=== PATIENT | male | born 1980 | race American Indian/Alaskan Native ===

== ENCOUNTER 2017-07-19 12:49 | Inpatient (IN) | payer OTHER ==
[2017-07-19] MEDS ORDERED: TYLENOL PO ONE (14:23)
[2017-07-19] MEDS ORDERED: TYLENOL ONE (14:25)
[2017-07-19 15:04] LABS: Hemoglobin 12.9 gm/dl (11.8-15.2); Mean Corpuscular HGB Conc 33 % (32-34); Mean Corpuscular Volume 74 fl (84-94); Platelet Count 158 K/mm3 (140-440); Red Blood Count 5.26 M/mm3 (3.65-5.03); Red Cell Distribution Width 15.7 % (13.2-15.2)
--- NOTE | 2017-07-19 15:05 | XRay Report ---
ROUTINE CHEST, TWO VIEWS: HISTORY: Shortness of breath. The trachea, heart, mediastinal contour, lung cherry and bony thorax are unremarkable. IMPRESSION: Unremarkable chest x-ray.
[2017-07-19 15:06] LABS: Mean Corpuscular Hemoglobin 25 pg (28-32)
[2017-07-19 15:11] LABS: BUN/Creatinine Ratio 19; Blood Urea Nitrogen 19 mg/dL (9-20); Calcium 8.5 mg/dL (8.4-10.2); Hemolysis Index 14
[2017-07-19] MEDS ORDERED: NACL 0.9% 500 ML 500 ML IV ONE (15:26)
[2017-07-19] MEDS ORDERED: NACL 0.9% 1000 ML 1,000 ML ONE (15:42)
[2017-07-19 15:52] LABS: Basophils % (Manual) 0 % (0.0-1.8); Eosinophils % (Manual) 0 % (0.0-4.3); Hypochromasia 1+; Ovalocytes 2+; Schistocytes Few; Total Cells Counted 100
[2017-07-19 15:53] LABS: Anisocytosis 1+; Large Platelets 1+; Platelet Estimate Consistent w Auto
--- NOTE | 2017-07-19 15:59 | Emergency Department Report ---
ED General Adult HPI - General Chief complaint: Dyspnea/Respdistress Stated complaint: SOB Time Seen by Provider: 07/19/17 15:31 Source: patient Mode of arrival: Ambulatory Limitations: No Limitations - History of Present Illness Initial comments: Patient is a poor historian. However, he is able to speak Czech moderately well. He states that he has been sick for 3 weeks. Apparently he has had some occasional cough and some vague difficulty breathing. States that he "coughs at midnight". Doesn't seem to be producing any sputum as far as I can tell from him. He denies leg pain or swelling. His last trip from [facility] was 3 months ago. He states that he was in [place] prior to that. 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 He denies ever having HIV testing. However he has been traveling [facility] quite some time. He states he was never hospitalized in [facility]. He does not take any routine medications. He denies a history of serious infection to include HIV. He was unaware of his fever. He does feel generally weak. -: week(s) Radiation: other (subjective Gen. eyes body aching but no chest or abdominal pain) Severity scale (0 -10): 5 Consistency: intermittent Improves with: none Worsens with: none Associated Symptoms: denies other symptoms, malaise, weakness Treatments Prior to Arrival: none - Related Data Allergies Allergy/AdvReac Type Severity Reaction Status Date / Time No Known Allergies Allergy Verified 07/19/17 14:16 ED Review of Systems ROS: Stated complaint: SOB Other details as noted in HPI Constitutional: weakness. denies: chills, fever (was unaware) Eyes: denies: eye pain, eye discharge, vision change ENT: throat pain (sore throat). denies: ear pain Respiratory: denies: cough, shortness of breath, wheezing Cardiovascular: denies: chest pain, palpitations Endocrine: no symptoms reported Gastrointestinal: denies: abdominal pain, nausea, diarrhea Genitourinary: denies: urgency, dysuria Musculoskeletal: denies: back pain, joint swelling, arthralgia Skin: denies: rash, lesions Neurological: denies: headache, weakness, paresthesias Psychiatric: denies: anxiety, depression Hematological/Lymphatic: denies: easy bleeding, easy bruising ED Past Medical Hx - Past Medical History Hx Hypertension: Yes Hx Diabetes: Yes - Surgical History Past Surgical History?: Yes Additional Surgical History: hernia - Social History Smoking Status: Current Every Day Smoker Substance Use Type: None ED Physical Exam - General Limitations: No Limitations General appearance: alert, in no apparent distress - Head Head exam: Present: atraumatic, normocephalic - Eye Eye exam: Present: normal appearance - ENT ENT exam: Present: mucous membranes dry. Absent: normal orophraynx (patient has apparent thrush posterior pharynx.) - Neck Neck exam: Present: normal inspection. Absent: tenderness, meningismus - Respiratory Respiratory exam: Present: normal lung sounds bilaterally. Absent: respiratory distress - Cardiovascular Cardiovascular Exam: Present: regular rate, normal rhythm. Absent: systolic murmur, diastolic murmur, rubs, gallop - GI/Abdominal GI/Abdominal exam: Present: soft, normal bowel sounds. Absent: distended, tenderness, guarding, rebound, rigid - Rectal Rectal exam: Present: deferred - Extremities Exam Extremities exam: Present: normal inspection - Back Exam Back exam: Present: normal inspection - Neurological Exam Neurological exam: Present: alert, oriented X3 - Psychiatric Psychiatric exam: Present: normal affect, normal mood - Skin Skin exam: Present: warm, dry, intact, normal color. Absent: rash ED Course Vital Signs 07/19/17 07/19/17 07/19/17 14:16 15:25 15:31 Temperature 101.9 F H Pulse Rate 110 H 95 H Respiratory 16 17 20 Rate Blood Pressure 103/60 O2 Sat by Pulse 96 98 Oximetry 07/19/17 07/19/17 15:45 16:00 Temperature Pulse Rate 92 H 89 Respiratory 12 22 Rate Blood Pressure 102/61 121/77 O2 Sat by Pulse 97 96 Oximetry - Reevaluation(s) Reevaluation #1: Patient was found to have a neutrophil count of 1.1 and an absolute lymphocyte count of 400. He has thrush. I was certainly think the likely diagnosis is HIV. Not withstanding, he was treated empirically for sepsis. His chest x-ray did not show evidence of an acute pulmonary process although perhaps he feels worse slightly hazy but read as normal by the radiologist. I spoke with Dr. Geronimo the infectious disease specialist who has already seen the patient. The patient has been admitted by Dr. Walters. 07/19/17 18:01 ED Medical Decision Making - Lab Data Result diagrams: 07/19/17 14:40 07/19/17 14:40 Laboratory Results - last 24 hr 07/19/17 07/19/17 14:40 14:40 WBC 1.7 L* RBC 5.26 H Hgb 12.9 Hct 39.0 MCV 74 L MCH 25 L MCHC 33 RDW 15.7 H Plt Count 158 Sodium 130 L Potassium 4.7 Chloride 90.0 L Carbon Dioxide 23 Anion Gap 22 BUN 19 Creatinine 1.0 Estimated GFR > 60 BUN/Creatinine Ratio 19 Glucose 90 Calcium 8.5 Laboratory Results - last 24 hr 07/19/17 07/19/17 07/19/17 14:40 14:40 15:39 WBC 1.7 L* RBC 5.26 H Hgb 12.9 Hct 39.0 MCV 74 L MCH 25 L MCHC 33 RDW 15.7 H Plt Count 158 Add Manual Diff Complete Total Counted 100 Seg Neuts % (Manual) 65.0 Band Neutrophils % 1.0 Lymphocytes % (Manual) 26.0 Reactive Lymphs % (Man) 0 Monocytes % (Manual) 8.0 H Eosinophils % (Manual) 0 Basophils % (Manual) 0 Metamyelocytes % 0 Myelocytes % 0 Promyelocytes % 0 Blast Cells % 0 Nucleated RBC % Not Reportable Seg Neutrophils # Man 1.1 L Band Neutrophils # 0.0 Lymphocytes # (Manual) 0.4 L Abs React Lymphs (Man) 0.0 Monocytes # (Manual) 0.1 Eosinophils # (Manual) 0.0 Basophils # (Manual) 0.0 Metamyelocytes # 0.0 Myelocytes # 0.0 Promyelocytes # 0.0 Blast Cells # 0.0 WBC Morphology Not Reportable Hypersegmented Neuts Not Reportable Hyposegmented Neuts Not Reportable Hypogranular Neuts Not Reportable Smudge Cells Not Reportable Toxic Granulation Not Reportable Toxic Vacuolation Not Reportable Dohle Bodies Not Reportable Pelger-Huet Anomaly Not Reportable Steffen Rods Not Reportable Platelet Estimate Consistent w auto Clumped Platelets Not Reportable Plt Clumps, EDTA Not Reportable Large Platelets 1+ Giant Platelets Not Reportable Platelet Satelliting Not Reportable Plt Morphology Comment Not Reportable RBC Morphology Not Reportable Dimorphic RBCs Not Reportable Polychromasia Not Reportable Hypochromasia 1+ Poikilocytosis Not Reportable Anisocytosis 1+ Microcytosis Not Reportable Macrocytosis Not Reportable Spherocytes Not Reportable Pappenheimer Bodies Not Reportable Sickle Cells Not Reportable Target Cells Not Reportable Tear Drop Cells Not Reportable Ovalocytes 2+ Helmet Cells Not Reportable [place] Bodies Not Reportable Grawn Rings Not Reportable Ripley Cells Not Reportable Bite Cells Not Reportable Crenated Cell Not Reportable Elliptocytes 1+ Acanthocytes (Spur) Not Reportable Rouleaux Not Reportable Hemoglobin C Crystals Not Reportable Schistocytes Few Malaria parasites Not Reportable Ezekiel Bodies Not Reportable Hem Pathologist Commnt No PT 12.7 INR 0.91 APTT 31.2 Sodium 130 L Potassium 4.7 Chloride 90.0 L Carbon Dioxide 23 Anion Gap 22 BUN 19 Creatinine 1.0 Estimated GFR > 60 BUN/Creatinine Ratio 19 Glucose 90 Lactic Acid Calcium 8.5 Total Bilirubin Direct Bilirubin Indirect Bilirubin AST ALT Alkaline Phosphatase Total Protein Albumin Albumin/Globulin Ratio 07/19/17 07/19/17 15:39 15:43 WBC RBC Hgb Hct MCV MCH MCHC RDW Plt Count Add Manual Diff Total Counted Seg Neuts % (Manual) Band Neutrophils % Lymphocytes % (Manual) Reactive Lymphs % (Man) Monocytes % (Manual) Eosinophils % (Manual) Basophils % (Manual) Metamyelocytes % Myelocytes % Promyelocytes % Blast Cells % Nucleated RBC % Seg Neutrophils # Man Band Neutrophils # Lymphocytes # (Manual) Abs React Lymphs (Man) Monocytes # (Manual) Eosinophils # (Manual) Basophils # (Manual) Metamyelocytes # Myelocytes # Promyelocytes # Blast Cells # WBC Morphology Hypersegmented Neuts Hyposegmented Neuts Hypogranular Neuts Smudge Cells Toxic Granulation Toxic Vacuolation Dohle Bodies Pelger-Huet Anomaly Steffen Rods Platelet Estimate Clumped Platelets Plt Clumps, EDTA Large Platelets Giant Platelets Platelet Satelliting Plt Morphology Comment RBC Morphology Dimorphic RBCs Polychromasia Hypochromasia Poikilocytosis Anisocytosis Microcytosis Macrocytosis Spherocytes Pappenheimer Bodies Sickle Cells Target Cells Tear Drop Cells Ovalocytes Helmet Cells Collins-[place] Bodies Grawn Rings Ripley Cells Bite Cells Crenated Cell Elliptocytes Acanthocytes (Spur) Rouleaux Hemoglobin C Crystals Schistocytes Malaria parasites Ezekiel Bodies Hem Pathologist Commnt PT INR APTT Sodium Potassium Chloride Carbon Dioxide Anion Gap BUN Creatinine Estimated GFR BUN/Creatinine Ratio Glucose Lactic Acid 1.20 Calcium Total Bilirubin 0.70 Direct Bilirubin 0.2 Indirect Bilirubin 0.5 AST 73 H ALT 20 Alkaline Phosphatase 68 Total Protein 8.6 H Albumin 4.1 Albumin/Globulin Ratio 0.9 - EKG Data -: EKG Interpreted by Me EKG shows normal: sinus rhythm, axis, intervals, QRS complexes, ST-T waves Rate: normal - EKG Data Interpretation: no acute changes - Radiology Data Radiology results: report reviewed Critical care attestation.: If time is entered above; I have spent that time in minutes in the direct care of this critically ill patient, excluding procedure time. ED Disposition Clinical Impression: Febrile illness, Lymphopenia, Hyponatremia, Thrush Neutropenia Qualifiers: Neutropenia type: due to infection Qualified Code(s): D70.3 - Neutropenia due to infection Disposition: DC-09 OP ADMIT IP TO THIS HOSP Is pt being admited?: Yes Does the pt Need Aspirin: Yes Condition: Stable Time of Disposition: 18:04
[2017-07-19] MEDS ORDERED: VANCOMYCIN PHARMACY TO DOSE IV SCH ×2 (16:00→19:00)
[2017-07-19 16:04] LABS: INR 0.91 (0.87-1.13)
[2017-07-19 16:05] LABS: Partial Thromboplastin Time 31.2 Sec. (24.2-36.6)
[2017-07-19 16:14] LABS: Albumin 4.1 g/dL (3.9-5); Bilirubin,Direct 0.2 mg/dL (0-0.2)
[2017-07-19] MEDS: ZOSYN/NS 4.5GM/100ML 4.5 GM/100 ML VIAL IV SCH (17:05)
[2017-07-19] MEDS ORDERED: ZOFRAN IV PRN (17:29)
[2017-07-19] MEDS ORDERED: DULCOLAX PR PRN (17:29)
[2017-07-19] MEDS ORDERED: MILK OF MAGNESIA PO PRN (17:29)
--- NOTE | 2017-07-19 17:29 | Event Note ---
Date: 07/19/17 See Dictated H/p in reports Esophageal candidiasis Immunocompromised--HIV??? HIV test ordered Htn T2Dm
[2017-07-19] MEDS ORDERED: DILAUDID IV PRN (17:35)
[2017-07-19] MEDS ORDERED: MORPHINE IV PRN (17:35)
[2017-07-19] MEDS ORDERED: NACL 0.9% 1000 ML 1,000 ML IV SCH (18:00)
[2017-07-19] MEDS: DIFLUCAN 200 ML IV SCH (18:03)
[2017-07-19] MEDS ORDERED: BABY ASPIRIN PO ONE (18:08)
--- NOTE | 2017-07-19 18:31 | History and Physical Report ---
CHIEF COMPLAINT: 1. Shortness of breath. 2. Difficulty swallowing for 2 weeks. HISTORY OF PRESENT ILLNESS: A 37-year-old male states that he has been sick for 3 weeks. Shortness of breath and occasional cough. Also, has difficulty swallowing. Has white rash on the tongue. He travels between [facility] and [facility]. Very poor historian. States he has been getting short of breath and feeling weak. No fever. No chills. No prior history of HIV, etc. The patient is a very, very poor historian. PAST MEDICAL HISTORY: Hypertension and diabetes. PAST SURGICAL HISTORY: Hernia repair. SOCIAL HISTORY: Smokes over a pack a day. No alcohol, no drugs. FAMILY HISTORY: Hypertension. CURRENT MEDICATIONS: None mentioned. REVIEW OF SYSTEMS: HEENT: The patient has sore throat and difficulty swallowing and thrush. Oral thrush present. It has been going on for 3 weeks. NECK: No neck pain. CARDIOVASCULAR: No chest pain, no palpitations. Some shortness of breath present. RESPIRATORY: Some cough and shortness of breath on exertion present. No wheezing. GASTROINTESTINAL: No nausea, no vomiting. Has difficulty swallowing. Painful swallowing. No diarrhea. GENITOURINARY: No dysuria, no flank pain. MUSCULOSKELETAL: No joint pains. CENTRAL NERVOUS SYSTEM: No syncope, no seizures. A 14-point review of systems done. PHYSICAL EXAMINATION: GENERAL: Young male, cooperative during examination, well-developed, well nourished. VITAL SIGNS: Blood pressure is 102/61, temperature is 101.9, pulse is 110, respirations are 16, sats are 96%. HEENT: Oral thrush present. Tongue red otherwise. NECK: Supple, no lymphadenopathy, no thyromegaly. LUNGS: Clear to auscultation and percussion. Good air entry. CARDIOVASCULAR: S1, S2 heard. No gallop, no murmur, no rub. Apical impulse in left fifth intercostal space and midclavicular line. ABDOMEN: Soft and benign. No hepatosplenomegaly. No guarding, no rigidity. Hernial orifices are normal. EXTREMITIES: Good pedal pulses. No pedal edema. CENTRAL NERVOUS SYSTEM: Alert and oriented x 4, nonfocal exam. SKIN: Normal. LABORATORY DATA: Significant for white count of 1700. Very low hemoglobin of 12.9, hematocrit of 39 and platelet count of 158. Sodium is 130, potassium is 4.7, chloride is 90, BUN and creatinine is 19 and 1.0, AST is 73. Total protein is 8.6, albumin is 4.1. ASSESSMENT AND PLAN: 1. Esophageal candidiasis including oral thrush. The patient needs to be on IV Diflucan, dosages to be adjusted by ID. ID consult requested. Possible human immunodeficiency virus with acquired immune deficiency syndrome complex. Rapid HIV ordered. The CD4, etc. not ordered. We will defer to Infectious Disease. 2. Neutropenia, probably secondary to human immunodeficiency virus, rapid HIV ordered. The patient is a poor historian, does not give a sexual orientation. 3. Transaminitis, mild. We will get acute hepatitis profile. 4. Hyponatremia. IV fluids for now. Check osmolality. 5. Deep venous thrombosis prophylaxis, Lovenox 30 mg subcutaneous daily ordered. In summary, the patient has esophageal candidiasis, neutropenia, hyponatremia and transaminitis. Possible human immunodeficiency virus with acquired immune deficiency syndrome complex. JOB# [id number] TERRY/MCKENZIE
--- NOTE | 2017-07-19 18:46 | Consultation ---
History of Present Illness - Reason for Consult Consult date: 07/19/17 thrust, fever Requesting physician: TYRESE PEPE - History of Present Illness 37 years old patient originally from [place] with no known medical history except for smoking abuse admitted on 07/19/2018 due to 2 week-history of generalized weakness, denied cough, weight loss about 10 pounds and progressive shortness of breath. Patient denies any previous HIV testing. Patient is also complaining of suprapubic abdominal pain and dysuria. Patient is complaining of sore throat. Denies any runny nose. Reports nausea however denies vomiting or hematemesis. Denies hemoptysis. Patient came from the year 3 months ago. In the emergency room, initial temperature was 101.9, heart rate 110, respirations 16, O2 sat 96%, blood pressure 103/60. Initial white count 1.7. Hemoglobin 12.9. Platelets 158. Creatinine 1. Sodium 138. AST 73. Chest x- ray negative. Microbiology: Blood cultures: 07/19 pending Urine cultures: Respiratory cultures: Wound cultures: Stool cultures: Other: Current Antimicrobials: Zosyn Vancomycin Previous Antimicrobials: Past History Past Surgical History: No surgical history Social history: no significant social history Family history: no significant family history Medications and Allergies Allergies Allergy/AdvReac Type Severity Reaction Status Date / Time No Known Allergies Allergy Verified 07/19/17 14:16 Active Meds: Active Medications Acetaminophen (Tylenol) 650 mg PO Q4H PRN PRN Reason: Pain MILD(1-3)/Fever >100.5/OSMAN Bisacodyl (Dulcolax) 10 mg NC QDAY PRN PRN Reason: Constipation unrelieved by MOM Enoxaparin Sodium (Lovenox) 30 mg SUB-Q QDAY LAW Hydromorphone HCl (Dilaudid) 0.5 mg IV Q3H PRN PRN Reason: Pain , Severe (7-10) Piperacillin Sod/Tazobactam Sod (Zosyn/Ns 4.5gm/100ml) 4.5 gm in 100 mls @ 200 mls/hr IV ONCE [facility] Last Admin: 07/19/17 17:05 Dose: 200 mls/hr Fluconazole (Diflucan) 200 mls @ 100 mls/hr IV Q24HR LAW PRN Reason: Protocol Last Admin: 07/19/17 18:03 Dose: 100 mls/hr Sodium Chloride (Nacl 0.9% 1000 Ml) 1,000 mls @ 75 mls/hr IV DIRECT LAW Stop: 07/20/17 17:00 Piperacillin Sod/Tazobactam Sod (Zosyn/Ns 4.5gm/100ml) 4.5 gm in 100 mls @ 200 mls/hr IV Q8H LAW PRN Reason: Protocol Vancomycin HCl 1,250 mg/ (Sodium Chloride) 262.5 mls @ 131.25 mls/hr IV Q12H LAW Magnesium Hydroxide (Milk Of Magnesia) 30 ml PO Q4H PRN PRN Reason: Constipation Morphine Sulfate (Morphine) 2 mg IV Q4H PRN PRN Reason: Pain, Moderate (4-6) Ondansetron HCl (Zofran) 4 mg IV Q8H PRN PRN Reason: N/V unrelieved by Reglan Oxycodone/Acetaminophen (Percocet 5/325) 1 tab PO Q6H PRN PRN Reason: Pain, Moderate (4-6) Vancomycin HCl (Vancomycin Pharmacy To Dose) 1 each IV PKCONSULT LAW PRN Reason: Protocol Physical Examination - Physical Exam Narrative exam: General appearance: Alert in NAD, conversant Eyes: anicteric sclerae, moist conjunctivae; no lid-lag; PERRLA HENT: Atraumatic; oropharynx +marked thrush Neck: Trachea midline; supple, no thyromegaly or lymphadenopathy Lungs: scattered crackles demarcus CV: tachy Abdomen: Soft, non-tender; no masses or hepatosplenomegaly Extremities: No peripheral edema or extremity lymphadenopathy Skin: Normal temperature, turgor and texture; no rash, ulcers or subcutaneous nodules Psych: Appropriate affect, alert and oriented to person, place and time. Neuro: alert and oriented x 3. Moving all extermities Lines: No CVL / PICC - Constitutional Vitals: Vital Signs Temp Pulse Resp BP Pulse Ox 101.9 F H 94 H 15 91/66 96 07/19/17 14:16 07/19/17 18:00 07/19/17 18:00 07/19/17 18:00 07/19/17 18:00 Temperature -Last 24 Hours Temperature 101.9 F Results - Labs CBC & Chem 7: 07/19/17 14:40 07/19/17 14:40 Labs: Abnormal lab results 07/19/17 07/19/17 07/19/17 Range/Units 14:40 14:40 15:43 WBC 1.7 L* (4.5-11.0) K/mm3 RBC 5.26 H (3.65-5.03) M/mm3 MCV 74 L (84-94) fl MCH 25 L (28-32) pg RDW 15.7 H (13.2-15.2) % Monocytes % (Manual) 8.0 H (0.0-7.3) % Seg Neutrophils # Man 1.1 L (1.8-7.7) K/mm3 Lymphocytes # (Manual) 0.4 L (1.2-5.4) K/mm3 Sodium 130 L (137-145) mmol/L Chloride 90.0 L (98-107) mmol/L AST 73 H (5-40) units/L Total Protein 8.6 H (6.3-8.2) g/dL Assessment and Plan Assessment: 1) Sepsis: Present on admission, manifested by fever, tachycardia, hypotension, neutropenia. Etiology unclear. 2) Cough: CXR neg ? influenza ? PJP 3) Oral candidiasis 4) Weight loss ? HIV ? malignancy 5) Presumed HIV 6) Neutropenia: from HIV ? MAC ? malignancy ?infection? 7) Hyponatremia Plan: -follow-up blood cultures -obtain C-reactive protein (CRP) -check influenza antigen PCR in nasopharinx -check Cryptococcal serum antigen -check AFB blood cultures -obtain CT chest, abdomen and pelvic -stop vancomycin -continue zosyn and fluconazole -add tamiflu -add bactrim DS 2 tab q 8h empirically for PJP pneumonia full treatment -monitor for hypoxemia if so add prednisone Thank you Dr Pepe for your consultation, will follow up with you. Mishel Fry MD Infectious Diseases Specialist [facility] M [phone] O [phone]
[2017-07-19] MEDS ORDERED: VANCOMYCIN 1,250 MG in NACL 0.9% 250ML 250 ML IV SCH (19:30)
[2017-07-19] MEDS: BACTRIM DS PO SCH (22:13)
[2017-07-19] MEDS: TAMIFLU PO SCH (22:13)
[2017-07-19 22:14] LABS: Hepatitis A Antibody IgM Non-Reactive (NonReactive); Hepatitis B Core IgM Non-Reactive (NonReactive); Hepatitis B Surface Antigen Non-Reactive (Negative); Hepatitis C Virus Antibody Non-Reactive (NonReactive)
--- NOTE | 2017-07-20 00:32 | Cat Scan Report ---
FINAL REPORT PROCEDURE: CT ABDOMEN PELVIS WO/W CON TECHNIQUE: Computerized axial tomography of the abdomen and pelvis was performed without and with intravenous contrast. HISTORY: severe weight loss ? presumed AIDS with cough COMPARISON: No prior studies are available for comparison. FINDINGS: Visualized lower thorax: There are infiltrates at the right lung base. There are no pleural effusions or pneumothoraces.. Liver: Normal size and attenuation. Spleen: Normal size and attenuation. Gallbladder and biliary system: Normal. Pancreas: Normal. Adrenals: Normal. Kidneys: There are no kidney stones. There is no hydronephrosis per. GI tract: There is no bowel obstruction, colitis or enteritis. The appendix is normal.. Lymph nodes and mesentery: Normal. Vasculature: Normal. Bladder: Normal. Reproductive organs: Normal. Peritoneum: There is no ascites or free air, abscess or adenopathy.. Musculoskeletal structures: No significant abnormality. Other: There is a ventral hernia containing fat only.. IMPRESSION: There are infiltrates at the right lung base. There are no pleural effusions or pneumothoraces.. There are no kidney stones. There is no hydronephrosis per. There is no bowel obstruction, colitis or enteritis. The appendix is normal.. There is no ascites or free air, abscess or adenopathy.. There is a ventral hernia containing fat only.. .
[2017-07-20] MEDS: ZOSYN/NS 4.5GM/100ML 4.5 GM/100 ML VIAL IV SCH ×4 (00:42→08:59)
--- NOTE | 2017-07-20 01:16 | Cat Scan Report ---
FINAL REPORT PROCEDURE: CT CHEST W CON TECHNIQUE: Computerized axial tomography of the chest was performed during the IV injection of iodinated nonionic contrast. HISTORY: severe weight loss ? presumed AIDS with cough COMPARISON: No prior studies are available for comparison. TECHNICAL QUALITY: Satisfactory. FINDINGS: Heart and pericardium: Normal. Thoracic aorta: Normal. Pulmonary vasculature: Normal. Lymph nodes: No enlarged thoracic lymph nodes. Lungs: The lungs are well-expanded. 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 There are infiltrates at the right lung base. There is no pulmonary nodule or mass.. Pleural space: There is no pleural effusion or pneumothorax.. Musculoskeletal structures: No significant abnormality. Upper abdominal structures: No significant abnormality. IMPRESSION: The heart size is normal. There is no mediastinal or hilar lymphadenopathy. The lungs are well-expanded. 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 There are infiltrates at the right lung base. There is no pulmonary nodule or mass.. There is no pleural effusion or pneumothorax..
[2017-07-20] MEDS: BACTRIM DS PO SCH ×3 (05:59→21:37)
[2017-07-20 06:30] LABS: Hematocrit 35.6 % (35.5-45.6); Hemoglobin 11.9 gm/dl (11.8-15.2); Mean Corpuscular HGB Conc 33 % (32-34); Mean Corpuscular Volume 74 fl (84-94); Platelet Count 159 K/mm3 (140-440); Red Blood Count 4.82 M/mm3 (3.65-5.03); Red Cell Distribution Width 15.6 % (13.2-15.2)
[2017-07-20 06:44] LABS: Alanine Aminotransferase 16 units/L (7-56); Albumin 2.8 g/dL (3.9-5); BUN/Creatinine Ratio 17; Blood Urea Nitrogen 12 mg/dL (9-20); Calcium 7.9 mg/dL (8.4-10.2); Hemolysis Index 0
[2017-07-20 06:47] LABS: Mean Corpuscular Hemoglobin 25 pg (28-32)
[2017-07-20 06:50] LABS: Bilirubin,Urine NEG (Negative); Blood,Urine NEG (Negative); Color,Urine Yellow (Yellow); Nitrite,Urine NEG (Negative); Protein,Urine <15 mg/dL mg/dL (Negative); WBC,Urine < 1.0 /HPF (0.0-6.0)
[2017-07-20] MEDS ORDERED: LOVENOX SUB-Q SCH (10:00)
[2017-07-20 10:14] LABS: Anisocytosis 1+; Band Neutrophils # (Manual) 0.1 K/mm3; Basophils % (Manual) 0 % (0.0-1.8); Eosinophils % (Manual) 0 % (0.0-4.3); Hypochromasia 1+; Ovalocytes 2+; Total Cells Counted 100
[2017-07-20] MEDS: DIFLUCAN 200 ML IV SCH (10:38)
--- NOTE | 2017-07-20 10:38 | Progress Note ---
Assessment and Plan Assessment: 1) Sepsis: resolving. still hypotension, neutropenia. Etiology likely pneumonia. 2) RLL pneumonia in an immunocompromised patient: ? influenza ? PJP ? CAP -influenza antigen negative -CRP = 2.10 -HIV 1 & 2 reactive -CT showed RLL infiltrate -inital CXR neg 3) Oral candidiasis 4) Weight loss ? HIV ? malignancy 5) Newly diagtnosed HIV-presumed AIDS 6) Neutropenia: from HIV ? MAC ? malignancy ?infection? 7) Hyponatremia Plan: -hemo consult due to neutropenia to obtain bone marrow biopsy to r/o malignancy vs opportunist infection -follow-up blood cultures, Cryptococcal serum antige, AFB blood cultures -continue tamiflu and bactrim -add ceftriaxone and levaquin -change fluconazole to PO -stop zosyn -follow up with HIV clinic Thank you Dr Le for your consultation, will follow up with you. Katlyn Arzate NP-C for Dr. Mishel Fry MD Infectious Diseases Specialist [facility] [phone] O [phone] Subjective Date of service: 07/20/17 Principal diagnosis: leukopenia, fever, thrush Interval history: I can breath a little better today Microbiology: Blood cultures: 07/19 in progress Respiratory cultures: influenza negative 07/19 Current Antimicrobials: Zosyn 07/20 Diflucan 07/19 tanufky 07/19 bactrim 07/19 Previous Antimicrobials: Vancomycin Objective - Exam Narrative Exam: General appearance: Alert in NAD, conversant Eyes: anicteric sclerae, moist conjunctivae; no lid-lag; PERRLA HENT: Atraumatic; oropharynx +marked thrush Neck: Trachea midline; supple, no thyromegaly or lymphadenopathy Lungs: scattered crackles demarcus CV: RRR s1 s2 Abdomen: Soft, non-tender; no masses or hepatosplenomegaly Extremities: No peripheral edema or extremity lymphadenopathy Skin: Normal temperature, turgor and texture; no rash, ulcers or subcutaneous nodules Psych: Appropriate affect, calm and cooperative Neuro: alert and oriented x 3. Moving all extermities Lines: No CVL / PICC - Constitutional Vitals: Vital Signs Temp Pulse Resp BP Pulse Ox 99.5 F 89 18 115/78 98 07/20/17 08:03 07/20/17 08:03 07/20/17 08:03 07/20/17 08:03 07/20/17 08:03 Temperature -Last 24 Hours Temperature 99.5 F Temperature 98.0 F Temperature 101.9 F - Labs CBC & Chem 7: 07/20/17 05:22 07/20/17 05:22 Labs: Abnormal lab results 07/19/17 07/19/17 07/19/17 Range/Units 14:40 14:40 15:43 WBC 1.7 L* (4.5-11.0) K/mm3 RBC 5.26 H (3.65-5.03) M/mm3 MCV 74 L (84-94) fl MCH 25 L (28-32) pg RDW 15.7 H (13.2-15.2) % Seg Neuts % (Manual) (40.0-70.0) % Lymphocytes % (Manual) (13.4-35.0) % Monocytes % (Manual) 8.0 H (0.0-7.3) % Seg Neutrophils # Man 1.1 L (1.8-7.7) K/mm3 Lymphocytes # (Manual) 0.4 L (1.2-5.4) K/mm3 Sodium 130 L (137-145) mmol/L Chloride 90.0 L (98-107) mmol/L Carbon Dioxide (22-30) mmol/L Creatinine (0.8-1.5) mg/dL Glucose (75-100) mg/dL Lactic Acid (0.7-2.0) mmol/L Calcium (8.4-10.2) mg/dL AST 73 H (5-40) units/L C-Reactive Protein (0.00-1.30) mg/dL Total Protein 8.6 H (6.3-8.2) g/dL Albumin (3.9-5) g/dL 07/19/17 07/19/17 07/20/17 Range/Units 21:20 21:20 05:22 WBC 1.6 L* (4.5-11.0) K/mm3 RBC (3.65-5.03) M/mm3 MCV 74 L (84-94) fl MCH 25 L (28-32) pg RDW 15.6 H (13.2-15.2) % Seg Neuts % (Manual) 82.0 H (40.0-70.0) % Lymphocytes % (Manual) 8.0 L (13.4-35.0) % Monocytes % (Manual) (0.0-7.3) % Seg Neutrophils # Man 1.3 L (1.8-7.7) K/mm3 Lymphocytes # (Manual) 0.1 L (1.2-5.4) K/mm3 Sodium (137-145) mmol/L Chloride (98-107) mmol/L Carbon Dioxide (22-30) mmol/L Creatinine (0.8-1.5) mg/dL Glucose (75-100) mg/dL Lactic Acid 0.50 L (0.7-2.0) mmol/L Calcium (8.4-10.2) mg/dL AST (5-40) units/L C-Reactive Protein 2.10 H (0.00-1.30) mg/dL Total Protein (6.3-8.2) g/dL Albumin (3.9-5) g/dL 07/20/17 Range/Units 05:22 WBC (4.5-11.0) K/mm3 RBC (3.65-5.03) M/mm3 MCV (84-94) fl MCH (28-32) pg RDW (13.2-15.2) % Seg Neuts % (Manual) (40.0-70.0) % Lymphocytes % (Manual) (13.4-35.0) % Monocytes % (Manual) (0.0-7.3) % Seg Neutrophils # Man (1.8-7.7) K/mm3 Lymphocytes # (Manual) (1.2-5.4) K/mm3 Sodium 133 L (137-145) mmol/L Chloride 97.4 L (98-107) mmol/L Carbon Dioxide 21 L (22-30) mmol/L Creatinine 0.7 L (0.8-1.5) mg/dL Glucose 110 H (75-100) mg/dL Lactic Acid (0.7-2.0) mmol/L Calcium 7.9 L (8.4-10.2) mg/dL AST 44 H (5-40) units/L C-Reactive Protein (0.00-1.30) mg/dL Total Protein (6.3-8.2) g/dL Albumin 2.8 L (3.9-5) g/dL
[2017-07-20] MEDS: TAMIFLU PO SCH ×2 (10:39→21:37)
[2017-07-20] MEDS: LOVENOX SUB-Q SCH (10:40)
[2017-07-20] MEDS ORDERED: PNEUMOVAX 23 IM ONE (12:00)
[2017-07-20] MEDS: PROTONIX PO SCH (14:13)
[2017-07-20] MEDS: LEVAQUIN 750MG/150ML 750 MG/150 ML BAG IV SCH (15:50)
[2017-07-20] MEDS: TYLENOL PO PRN (16:01)
--- NOTE | 2017-07-20 18:44 | Progress Note ---
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 Follow up fevers. No new issues. Hospitalist Physical - Constitutional Vitals: Temp Pulse Resp BP Pulse Ox 102.4 F H 65 22 116/83 97 07/20/17 14:58 07/20/17 14:58 07/20/17 14:58 07/20/17 14:58 07/20/17 14:58 General appearance: Present: no acute distress, cachectic - EENT Eyes: Present: PERRL, EOM intact ENT: hearing intact, clear oral mucosa - Neck Neck: Present: supple, normal ROM - Respiratory Respiratory effort: normal Respiratory: right: rhonchi - Cardiovascular Rhythm: regular Heart Sounds: Present: S1 & S2 - Extremities Extremities: no ischemia - Abdominal General gastrointestinal: soft, non-tender, non-distended, normal bowel sounds - Integumentary Integumentary: Present: clear, warm, dry - Psychiatric Psychiatric: cooperative - Neurologic Neurologic: CNII-XII intact - Allied Health Allied health notes reviewed: nursing Results - Labs CBC & Chem 7: 07/20/17 05:22 07/20/17 05:22 Labs: Laboratory Last Values WBC 1.6 K/mm3 (4.5-11.0) L* 07/20/17 05:22 RBC 4.82 M/mm3 (3.65-5.03) 07/20/17 05:22 Hgb 11.9 gm/dl (11.8-15.2) 07/20/17 05:22 Hct 35.6 % (35.5-45.6) 07/20/17 05:22 MCV 74 fl (84-94) L 07/20/17 05:22 MCH 25 pg (28-32) L 07/20/17 05:22 MCHC 33 % (32-34) 07/20/17 05:22 RDW 15.6 % (13.2-15.2) H 07/20/17 05:22 Plt Count 159 K/mm3 (140-440) 07/20/17 05:22 Add Manual Diff Complete 07/20/17 05:22 Total Counted 100 07/20/17 05:22 Seg Neuts % (Manual) 82.0 % (40.0-70.0) H 07/20/17 05:22 Band Neutrophils % 7.0 % 07/20/17 05:22 Lymphocytes % (Manual) 8.0 % (13.4-35.0) L 07/20/17 05:22 Reactive Lymphs % (Man) 0 % 07/20/17 05:22 Monocytes % (Manual) 3.0 % (0.0-7.3) 07/20/17 05:22 Eosinophils % (Manual) 0 % (0.0-4.3) 07/20/17 05:22 Basophils % (Manual) 0 % (0.0-1.8) 07/20/17 05:22 Metamyelocytes % 0 % 07/20/17 05:22 Myelocytes % 0 % 07/20/17 05:22 Promyelocytes % 0 % 07/20/17 05:22 Blast Cells % 0 % 07/20/17 05:22 Nucleated RBC % Not Reportable 07/20/17 05:22 Seg Neutrophils # Man 1.3 K/mm3 (1.8-7.7) L 07/20/17 05:22 Band Neutrophils # 0.1 K/mm3 07/20/17 05:22 Lymphocytes # (Manual) 0.1 K/mm3 (1.2-5.4) L 07/20/17 05:22 Abs React Lymphs (Man) 0.0 K/mm3 07/20/17 05:22 Monocytes # (Manual) 0.0 K/mm3 (0.0-0.8) 07/20/17 05:22 Eosinophils # (Manual) 0.0 K/mm3 (0.0-0.4) 07/20/17 05:22 Basophils # (Manual) 0.0 K/mm3 (0.0-0.1) 07/20/17 05:22 Metamyelocytes # 0.0 K/mm3 07/20/17 05:22 Myelocytes # 0.0 K/mm3 07/20/17 05:22 Promyelocytes # 0.0 K/mm3 07/20/17 05:22 Blast Cells # 0.0 K/mm3 07/20/17 05:22 WBC Morphology Not Reportable 07/20/17 05:22 Hypersegmented Neuts Not Reportable 07/20/17 05:22 Hyposegmented Neuts Not Reportable 07/20/17 05:22 Hypogranular Neuts Not Reportable 07/20/17 05:22 Smudge Cells Not Reportable 07/20/17 05:22 Toxic Granulation Not Reportable 07/20/17 05:22 Toxic Vacuolation Not Reportable 07/20/17 05:22 Dohle Bodies Not Reportable 07/20/17 05:22 Pelger-Huet Anomaly Not Reportable 07/20/17 05:22 Steffen Rods Not Reportable 07/20/17 05:22 Platelet Estimate Not Reportable 07/20/17 05:22 Clumped Platelets Not Reportable 07/20/17 05:22 Plt Clumps, EDTA Not Reportable 07/20/17 05:22 Large Platelets Not Reportable 07/20/17 05:22 Giant Platelets Not Reportable 07/20/17 05:22 Platelet Satelliting Not Reportable 07/20/17 05:22 Plt Morphology Comment Not Reportable 07/20/17 05:22 RBC Morphology Not Reportable 07/20/17 05:22 Dimorphic RBCs Not Reportable 07/20/17 05:22 Polychromasia Not Reportable 07/20/17 05:22 Hypochromasia 1+ 07/20/17 05:22 Poikilocytosis Not Reportable 07/20/17 05:22 Anisocytosis 1+ 07/20/17 05:22 Microcytosis Not Reportable 07/20/17 05:22 Macrocytosis Not Reportable 07/20/17 05:22 Spherocytes Not Reportable 07/20/17 05:22 Pappenheimer Bodies Not Reportable 07/20/17 05:22 Sickle Cells Not Reportable 07/20/17 05:22 Target Cells Not Reportable 07/20/17 05:22 Tear Drop Cells Not Reportable 07/20/17 05:22 Ovalocytes 2+ 07/20/17 05:22 Helmet Cells Not Reportable 07/20/17 05:22 [place] [employer] Bodies Not Reportable 07/20/17 05:22 [place] Rings Not Reportable 07/20/17 05:22 [place] Cells Not Reportable 07/20/17 05:22 Bite Cells Not Reportable 07/20/17 05:22 Crenated Cell Not Reportable 07/20/17 05:22 Elliptocytes Not Reportable 07/20/17 05:22 Acanthocytes (Spur) Not Reportable 07/20/17 05:22 Rouleaux Not Reportable 07/20/17 05:22 Hemoglobin C Crystals Not Reportable 07/20/17 05:22 Schistocytes Not Reportable 07/20/17 05:22 Malaria parasites Not Reportable 07/20/17 05:22 E[place] Bodies Not Reportable 07/20/17 05:22 Hem Pathologist Commnt No 07/20/17 05:22 PT 12.7 Sec. (12.2-14.9) 07/19/17 15:39 INR 0.91 (0.87-1.13) 07/19/17 15:39 APTT 31.2 Sec. (24.2-36.6) 07/19/17 15:39 Sodium 133 mmol/L (137-145) L 07/20/17 05:22 Potassium 4.2 mmol/L (3.6-5.0) 07/20/17 05:22 Chloride 97.4 mmol/L (98-107) L 07/20/17 05:22 Carbon Dioxide 21 mmol/L (22-30) L 07/20/17 05:22 Anion Gap 19 mmol/L 07/20/17 05:22 BUN 12 mg/dL (9-20) 07/20/17 05:22 Creatinine 0.7 mg/dL (0.8-1.5) L 07/20/17 05:22 Estimated GFR > 60 ml/min 07/20/17 05:22 BUN/Creatinine Ratio 17 % 07/20/17 05:22 Glucose 110 mg/dL (75-100) H 07/20/17 05:22 Hemoglobin A1c 6.0 % (4-6) 07/20/17 05:22 Lactic Acid 0.50 mmol/L (0.7-2.0) L 07/19/17 21:20 Calcium 7.9 mg/dL (8.4-10.2) L 07/20/17 05:22 Total Bilirubin 0.40 mg/dL (0.1-1.2) 07/20/17 05:22 Direct Bilirubin 0.2 mg/dL (0-0.2) 07/19/17 15:43 Indirect Bilirubin 0.5 mg/dL 07/19/17 15:43 AST 44 units/L (5-40) H 07/20/17 05:22 ALT 16 units/L (7-56) 07/20/17 05:22 Alkaline Phosphatase 51 units/L (35-129) 07/20/17 05:22 C-Reactive Protein 2.10 mg/dL (0.00-1.30) H 07/19/17 21:20 Total Protein 7.0 g/dL (6.3-8.2) 07/20/17 05:22 Albumin 2.8 g/dL (3.9-5) L 07/20/17 05:22 Albumin/Globulin Ratio 0.7 % 07/20/17 05:22 Urine Color Yellow (Yellow) 07/20/17 04:00 Urine Turbidity Clear (Clear) 07/20/17 04:00 Urine pH 6.0 (5.0-7.0) 07/20/17 04:00 Ur Specific [place] 1.030 (1.003-1.030) 07/20/17 04:00 Urine Protein <15 mg/dl mg/dL (Negative) 07/20/17 04:00 Urine Glucose (UA) Neg mg/dL (Negative) 07/20/17 04:00 Urine Ketones Neg mg/dL (Negative) 07/20/17 04:00 Urine Blood Neg (Negative) 07/20/17 04:00 Urine Nitrite Neg (Negative) 07/20/17 04:00 Urine Bilirubin Neg (Negative) 07/20/17 04:00 Urine Urobilinogen 2.0 mg/dL (<2.0) 07/20/17 04:00 Ur Leukocyte Esterase Neg (Negative) 07/20/17 04:00 Urine WBC (Auto) < 1.0 /HPF (0.0-6.0) 07/20/17 04:00 Urine RBC (Auto) 1.0 /HPF (0.0-6.0) 07/20/17 04:00 Hepatitis A IgM Ab Non-reactive (NonReactive) 07/19/17 21:20 Hep Bs Antigen Non-reactive (Negative) 07/19/17 21:20 Hep B Core IgM Ab Non-reactive (NonReactive) 07/19/17 21:20 Hepatitis C Antibody Non-reactive (NonReactive) 07/19/17 21:20 HIV 1&2 Antibody Rapid Reactive (Non React) 07/19/17 21:20 HIV P24 Antigen Non react (Non React) 07/19/17 21:20
[2017-07-21] MEDS: BACTRIM DS PO SCH ×2 (06:12→15:57)
[2017-07-21 06:36] LABS: Hematocrit 35.9 % (35.5-45.6); Hemoglobin 11.9 gm/dl (11.8-15.2); Mean Corpuscular HGB Conc 33 % (32-34); Mean Corpuscular Volume 74 fl (84-94); Platelet Count 158 K/mm3 (140-440); Red Blood Count 4.85 M/mm3 (3.65-5.03); Red Cell Distribution Width 15.8 % (13.2-15.2)
[2017-07-21 06:52] LABS: BUN/Creatinine Ratio 8; Blood Urea Nitrogen 6 mg/dL (9-20); Calcium 8.1 mg/dL (8.4-10.2); Hemolysis Index 4
[2017-07-21 07:02] LABS: Mean Corpuscular Hemoglobin 25 pg (28-32)
[2017-07-21] MEDS ORDERED: ROCEPHIN/NS 2 GM/100 ML 2 GM/100 ML BAG IV SCH (10:00)
[2017-07-21] MEDS: LEVAQUIN 750MG/150ML 750 MG/150 ML BAG IV SCH (10:21)
[2017-07-21] MEDS: TAMIFLU PO SCH ×2 (10:42→22:30)
[2017-07-21] MEDS: DIFLUCAN PO SCH (10:42)
[2017-07-21] MEDS: PROTONIX PO SCH (10:42)
[2017-07-21] MEDS: LOVENOX SUB-Q SCH (10:43)
[2017-07-21] MEDS: cefTRIAXone 2 GM in NACL 0.9% 20 ML IV SCH (11:06)
--- NOTE | 2017-07-21 13:41 | Progress Note ---
Assessment and Plan Assessment and plan: Patient is a 37-year-old man originally from [place] with a history of tobacco dependency who presented with fevers, sore throat, weight loss, abdominal pain and shortness of breath * 2v CXR reported as no acute findings * CT abd/pelvis w and w/o: IMPRESSION: There are infiltrates at the right lung base. There are no pleural effusions or pneumothoraces. There are no kidney stones. There is no hydronephrosis per. There is no bowel obstruction, colitis or enteritis. The appendix is normal.. There is no ascites or free air, abscess or adenopathy.. There is a ventral hernia containing fat only. * CT chest with contrast: IMPRESSION: The heart size is normal. There is no mediastinal or hilar lymphadenopathy. The lungs are well-expanded. 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 There are infiltrates at the right lung base. There is no pulmonary nodule or mass.. There is no pleural effusion or pneumothorax.. SEPSIS PNA: Infectious Disease is following, ivf and abx, follow cultures HIV with presumably AIDS, newly diagnosed: get viral load, ID is following Oral thrush candidiasis: Treat with Diflucan Neutropenia was likely related to infection: Treated infection RLL Aspiration pneumonia: iv abx Tobacco dependancy: auto travel counselor on stopping Hyponatremia: Treated with IV fluids Severe malnutrition: consult Clerk Of Court, encourage po intake GERD: add ppi DVT prophylaxis: Subcutaneous Lovenox full code History Interval history: Patient was seen and examined. Follow-up on current diagnosis of fevers. Overnight uneventful. Patient denies any chest pain, shortness breath, nausea/ vomiting or severe headaches. Imaging, nursing note, chart, labs and old chart reviewed. Discussed with patient. Last fever was 2:58 PM on 05/20/2018 Hospitalist Physical - Physical exam Narrative exam: GEN: Thin frail ill-appearing BMI 19, NAD, AWAKE, ALERT, ORIENTATED 3 HEENT: NCAT, EOMI, PERRL, OP thrush NECK: supple, no adenopathy, no thyromegaly, no JVD CVS/HEART: RRR, NORMAL S1S2, NO JVD, pulses present bilaterally CHEST/LUNGS: Bibasilar crackles Symmetrical chest expansion, good air entry bilaterally GI/Abdomen: soft, NTND, good bowel sounds, no guarding or rebound /Bladder: no suprapubic tenderness, no CVA or paraspinal tenderness EXT/Skin: no c/c/e, no obvious rash MSK: FROM x 4 Neuro: CN 2-12 grossly intact, no new focal deficits Psych: calm - Constitutional Vitals: Temp Pulse Resp BP Pulse Ox 99.8 F H 83 18 115/77 97 07/21/17 08:21 07/21/17 08:21 07/21/17 08:21 07/21/17 08:21 07/21/17 08:21 General appearance: Present: no acute distress, cachectic Results - Labs CBC & Chem 7: 07/21/17 05:34 07/21/17 05:34 Labs: Laboratory Last Values WBC 1.2 K/mm3 (4.5-11.0) L* 07/21/17 05:34 RBC 4.85 M/mm3 (3.65-5.03) 07/21/17 05:34 Hgb 11.9 gm/dl (11.8-15.2) 07/21/17 05:34 Hct 35.9 % (35.5-45.6) 07/21/17 05:34 MCV 74 fl (84-94) L 07/21/17 05:34 MCH 25 pg (28-32) L 07/21/17 05:34 MCHC 33 % (32-34) 07/21/17 05:34 RDW 15.8 % (13.2-15.2) H 07/21/17 05:34 Plt Count 158 K/mm3 (140-440) 07/21/17 05:34 Add Manual Diff Complete 07/20/17 05:22 Total Counted 100 07/20/17 05:22 Seg Neuts % (Manual) 82.0 % (40.0-70.0) H 07/20/17 05:22 Band Neutrophils % 7.0 % 07/20/17 05:22 Lymphocytes % (Manual) 8.0 % (13.4-35.0) L 07/20/17 05:22 Reactive Lymphs % (Man) 0 % 07/20/17 05:22 Monocytes % (Manual) 3.0 % (0.0-7.3) 07/20/17 05:22 Eosinophils % (Manual) 0 % (0.0-4.3) 07/20/17 05:22 Basophils % (Manual) 0 % (0.0-1.8) 07/20/17 05:22 Metamyelocytes % 0 % 07/20/17 05:22 Myelocytes % 0 % 07/20/17 05:22 Promyelocytes % 0 % 07/20/17 05:22 Blast Cells % 0 % 07/20/17 05:22 Nucleated RBC % Not Reportable 07/20/17 05:22 Seg Neutrophils # Man 1.3 K/mm3 (1.8-7.7) L 07/20/17 05:22 Band Neutrophils # 0.1 K/mm3 07/20/17 05:22 Lymphocytes # (Manual) 0.1 K/mm3 (1.2-5.4) L 07/20/17 05:22 Abs React Lymphs (Man) 0.0 K/mm3 07/20/17 05:22 Monocytes # (Manual) 0.0 K/mm3 (0.0-0.8) 07/20/17 05:22 Eosinophils # (Manual) 0.0 K/mm3 (0.0-0.4) 07/20/17 05:22 Basophils # (Manual) 0.0 K/mm3 (0.0-0.1) 07/20/17 05:22 Metamyelocytes # 0.0 K/mm3 07/20/17 05:22 Myelocytes # 0.0 K/mm3 07/20/17 05:22 Promyelocytes # 0.0 K/mm3 07/20/17 05:22 Blast Cells # 0.0 K/mm3 07/20/17 05:22 WBC Morphology Not Reportable 07/20/17 05:22 Hypersegmented Neuts Not Reportable 07/20/17 05:22 Hyposegmented Neuts Not Reportable 07/20/17 05:22 Hypogranular Neuts Not Reportable 07/20/17 05:22 Smudge Cells Not Reportable 07/20/17 05:22 Toxic Granulation Not Reportable 07/20/17 05:22 Toxic Vacuolation Not Reportable 07/20/17 05:22 Dohle Bodies Not Reportable 07/20/17 05:22 Pelger-Huet Anomaly Not Reportable 07/20/17 05:22 Steffen Rods Not Reportable 07/20/17 05:22 Platelet Estimate Not Reportable 07/20/17 05:22 Clumped Platelets Not Reportable 07/20/17 05:22 Plt Clumps, EDTA Not Reportable 07/20/17 05:22 Large Platelets Not Reportable 07/20/17 05:22 Giant Platelets Not Reportable 07/20/17 05:22 Platelet Satelliting Not Reportable 07/20/17 05:22 Plt Morphology Comment Not Reportable 07/20/17 05:22 RBC Morphology Not Reportable 07/20/17 05:22 Dimorphic RBCs Not Reportable 07/20/17 05:22 Polychromasia Not Reportable 07/20/17 05:22 Hypochromasia 1+ 07/20/17 05:22 Poikilocytosis Not Reportable 07/20/17 05:22 Anisocytosis 1+ 07/20/17 05:22 Microcytosis Not Reportable 07/20/17 05:22 Macrocytosis Not Reportable 07/20/17 05:22 Spherocytes Not Reportable 07/20/17 05:22 Pappenheimer Bodies Not Reportable 07/20/17 05:22 Sickle Cells Not Reportable 07/20/17 05:22 Target Cells Not Reportable 07/20/17 05:22 Tear Drop Cells Not Reportable 07/20/17 05:22 Ovalocytes 2+ 07/20/17 05:22 Helmet Cells Not Reportable 07/20/17 05:22 [place] Bodies Not Reportable 07/20/17 05:22 [place] Rings Not Reportable 07/20/17 05:22 [place] Cells Not Reportable 07/20/17 05:22 Bite Cells Not Reportable 07/20/17 05:22 Crenated Cell Not Reportable 07/20/17 05:22 Elliptocytes Not Reportable 07/20/17 05:22 Acanthocytes (Spur) Not Reportable 07/20/17 05:22 Rouleaux Not Reportable 07/20/17 05:22 Hemoglobin C Crystals Not Reportable 07/20/17 05:22 Schistocytes Not Reportable 07/20/17 05:22 Malaria parasites Not Reportable 07/20/17 05:22 [place] Bodies Not Reportable 07/20/17 05:22 Hem Pathologist Commnt No 07/20/17 05:22 PT 12.7 Sec. (12.2-14.9) 07/19/17 15:39 INR 0.91 (0.87-1.13) 07/19/17 15:39 APTT 31.2 Sec. (24.2-36.6) 07/19/17 15:39 Sodium 127 mmol/L (137-145) L 07/21/17 05:34 Potassium 4.1 mmol/L (3.6-5.0) 07/21/17 05:34 Chloride 91.2 mmol/L (98-107) L 07/21/17 05:34 Carbon Dioxide 20 mmol/L (22-30) L 07/21/17 05:34 Anion Gap 20 mmol/L 07/21/17 05:34 BUN 6 mg/dL (9-20) L 07/21/17 05:34 Creatinine 0.8 mg/dL (0.8-1.5) 07/21/17 05:34 Estimated GFR > 60 ml/min 07/21/17 05:34 BUN/Creatinine Ratio 8 % 07/21/17 05:34 Glucose 107 mg/dL (75-100) H 07/21/17 05:34 Hemoglobin A1c 6.0 % (4-6) 07/20/17 05:22 Lactic Acid 0.50 mmol/L (0.7-2.0) L 07/19/17 21:20 Calcium 8.1 mg/dL (8.4-10.2) L 07/21/17 05:34 Total Bilirubin 0.40 mg/dL (0.1-1.2) 07/20/17 05:22 Direct Bilirubin 0.2 mg/dL (0-0.2) 07/19/17 15:43 Indirect Bilirubin 0.5 mg/dL 07/19/17 15:43 AST 44 units/L (5-40) H 07/20/17 05:22 ALT 16 units/L (7-56) 07/20/17 05:22 Alkaline Phosphatase 51 units/L (35-129) 07/20/17 05:22 C-Reactive Protein 2.10 mg/dL (0.00-1.30) H 07/19/17 21:20 Total Protein 7.0 g/dL (6.3-8.2) 07/20/17 05:22 Albumin 2.8 g/dL (3.9-5) L 07/20/17 05:22 Albumin/Globulin Ratio 0.7 % 07/20/17 05:22 Urine Color Yellow (Yellow) 07/20/17 04:00 Urine Turbidity Clear (Clear) 07/20/17 04:00 Urine pH 6.0 (5.0-7.0) 07/20/17 04:00 Ur Specific [place] 1.030 (1.003-1.030) 07/20/17 04:00 Urine Protein <15 mg/dl mg/dL (Negative) 07/20/17 04:00 Urine Glucose (UA) Neg mg/dL (Negative) 07/20/17 04:00 Urine Ketones Neg mg/dL (Negative) 07/20/17 04:00 Urine Blood Neg (Negative) 07/20/17 04:00 Urine Nitrite Neg (Negative) 07/20/17 04:00 Urine Bilirubin Neg (Negative) 07/20/17 04:00 Urine Urobilinogen 2.0 mg/dL (<2.0) 07/20/17 04:00 Ur Leukocyte Esterase Neg (Negative) 07/20/17 04:00 Urine WBC (Auto) < 1.0 /HPF (0.0-6.0) 07/20/17 04:00 Urine RBC (Auto) 1.0 /HPF (0.0-6.0) 07/20/17 04:00 Hepatitis A IgM Ab Non-reactive (NonReactive) 07/19/17 21:20 Hep Bs Antigen Non-reactive (Negative) 07/19/17 21:20 Hep B Core IgM Ab Non-reactive (NonReactive) 07/19/17 21:20 Hepatitis C Antibody Non-reactive (NonReactive) 07/19/17 21:20 HIV 1&2 Antibody Rapid Reactive (Non React) 07/19/17 21:20 HIV P24 Antigen Non react (Non React) 07/19/17 21:20
--- NOTE | 2017-07-21 14:18 | Progress Note ---
Assessment and Plan Assessment: 1) Sepsis: better. Etiology -pneumonia 2) RLL Pneumonia: CXR neg. CT chest + RLL inflitrate. ? influenza ? CAP ?TB ? opportunistic -CXR 2.1 -influenza antigen neg 3) Oral candidiasis - better 4) Weight loss: from HIV / AIDS 5) Newly diagnosed HIV ? unknown CD4/VL. Cryptococcal antigen neg 6) Neutropenia: from HIV ? MAC ? malignancy ?infection? 7) Hyponatremia 8) Homeless Plan: -hem eval -airborne isolation -patient is homeless with abnormal CT chest -obtain AFB x 3 and quantiferon TB gold -f/u AFB blood cultures -stop bactrim -continue fluconazole, tamiflu, ceftriaone and levaquin -registered nurse hh case manager eval for prison placement I am signing off Thank you Dr Le for your consultation, will follow up with you. Mishel Fry MD Infectious Diseases Specialist [facility] ([facility]) M [phone] O [phone] Subjective Date of service: 07/21/17 Principal diagnosis: leukopenia, fever, thrush Interval history: Microbiology: Blood cultures: 07/19 in progress Respiratory cultures: influenza negative 07/19 Cryptococcus antigen negative Urine culture: negative Current Antimicrobials: Ceftriaoxne 07/20 levaquin 07/20 Diflucan 07/19 tamiflu07/19 bactrim 07/19 Previous Antimicrobials: Vancomycin Zosyn 07/20 Objective - Exam Narrative Exam: General appearance: Alert in NAD, conversant Eyes: anicteric sclerae, moist conjunctivae; no lid-lag; PERRLA HENT: Atraumatic; oropharynx + thrush better Neck: Trachea midline; supple, no thyromegaly or lymphadenopathy Lungs: scattered crackles demarcus CV: tachy Abdomen: Soft, non-tender; no masses or hepatosplenomegaly Extremities: No peripheral edema or extremity lymphadenopathy Skin: Normal temperature, turgor and texture; no rash, ulcers or subcutaneous nodules Psych: Appropriate affect, alert and oriented to person, place and time. Neuro: alert and oriented x 3. Moving all extermities Lines: No CVL / PICC - Constitutional Vitals: Vital Signs Temp Pulse Resp BP Pulse Ox 99.8 F H 83 18 115/77 97 07/21/17 08:21 07/21/17 08:21 07/21/17 08:21 07/21/17 08:21 07/21/17 08:21 Temperature -Last 24 Hours Temperature 99.8 F Temperature 98.1 F Temperature 102.4 F - Labs CBC & Chem 7: 07/21/17 05:34 07/21/17 05:34 Labs: Abnormal lab results 07/21/17 07/21/17 Range/Units 05:34 05:34 WBC 1.2 L* (4.5-11.0) K/mm3 MCV 74 L (84-94) fl MCH 25 L (28-32) pg RDW 15.8 H (13.2-15.2) % Sodium 127 L (137-145) mmol/L Chloride 91.2 L (98-107) mmol/L Carbon Dioxide 20 L (22-30) mmol/L BUN 6 L (9-20) mg/dL Glucose 107 H (75-100) mg/dL Calcium 8.1 L (8.4-10.2) mg/dL
[2017-07-21] MEDS: PERCOCET 5/325 PO PRN (22:29)
[2017-07-22] MEDS: LEVAQUIN 750MG/150ML 750 MG/150 ML BAG IV SCH (10:57)
[2017-07-22] MEDS: TAMIFLU PO SCH ×2 (11:47→23:10)
[2017-07-22] MEDS: LOVENOX SUB-Q SCH (11:47)
[2017-07-22] MEDS: DIFLUCAN PO SCH (11:47)
[2017-07-22] MEDS: PROTONIX PO SCH (11:48)
[2017-07-22] MEDS: LEVAQUIN PO SCH (11:48)
--- NOTE | 2017-07-22 14:17 | Progress Note ---
Assessment and Plan Assessment and plan: Patient is a 37-year-old man originally from [place] with a history of tobacco dependency who presented with fevers, sore throat, weight loss, abdominal pain and shortness of breath * 2v CXR reported as no acute findings * CT abd/pelvis w and w/o: IMPRESSION: There are infiltrates at the right lung base. There are no pleural effusions or pneumothoraces. There are no kidney stones. There is no hydronephrosis per. There is no bowel obstruction, colitis or enteritis. The appendix is normal.. There is no ascites or free air, abscess or adenopathy.. There is a ventral hernia containing fat only. * CT chest with contrast: IMPRESSION: The heart size is normal. There is no mediastinal or hilar lymphadenopathy. The lungs are well-expanded. 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 There are infiltrates at the right lung base. There is no pulmonary nodule or mass.. There is no pleural effusion or pneumothorax.. SEPSIS PNA: Infectious Disease is following, ivf and abx, follow cultures HIV with presumably AIDS, newly diagnosed: get viral load, ID is following, Crypto antigen neg. Bactrim stopped Oral thrush candidiasis: Treat with Diflucan Neutropenia was likely related to infection: Treated infection RLL Aspiration pneumonia: iv abx, r/o TB Tobacco dependancy: counseling services manager on stopping-15 MINS SPENT. Hyponatremia: Persist possible SIADH, and symptom monitoring will check urine and serum osmolarity Severe malnutrition: consult Verification Engineer, encourage po intake Urinary retention; Maybe secondary to principal disease. will monitor and advise management options. GERD: add ppi DVT prophylaxis: Subcutaneous Lovenox full code Plan discussed with patient. Continue isolation precaution History Interval history: Patient seen and examined in no acute distress this morning. Reports that he is unable to void while standing, but voids when she can. Denies any fecal incontinence. Denies any shortness of breath nausea or vomiting this time. Hospitalist Physical - Physical exam Narrative exam: VITAL SIGNS: Reviewed. GENERAL: The patient appeared malnourished with muscle wasting. Vital signs as documented. HEAD: No signs of head trauma. EYES: Pupils are equal. Extraocular motions intact. EARS: Hearing grossly intact. MOUTH: Oral thrush NECK: No adenopathy, no JVD. CHEST: Chest with diminished breath sounds bilaterally. No wheezes, rales, or rhonchi. CARDIAC: Regular rate and rhythm. S1 and S2, without murmurs, gallops, or rubs. VASCULAR: No Edema. Peripheral pulses normal and equal in all extremities. ABDOMEN: Soft, without detectable tenderness. No sign of distention. No rebound or guarding, and no masses palpated. Bowel Sounds normal. MUSCULOSKELETAL: Good range of motion of all major joints. Extremities without clubbing, cyanosis or edema. NEUROLOGIC EXAM: Alert and oriented x 3. No focal sensory or strength deficits. Speech normal. Follows commands. PSYCHIATRIC: Mood normal. SKIN: No rash or lesions. - Constitutional Vitals: Temp Pulse Resp BP Pulse Ox 98.7 F 87 18 101/65 96 07/22/17 08:15 07/22/17 08:15 07/22/17 08:15 07/22/17 08:15 07/22/17 08:15 General appearance: Present: no acute distress, cachectic Results - Labs CBC & Chem 7: 07/21/17 05:34 07/21/17 05:34 Labs: Laboratory Last Values WBC 1.2 K/mm3 (4.5-11.0) L* 07/21/17 05:34 RBC 4.85 M/mm3 (3.65-5.03) 07/21/17 05:34 Hgb 11.9 gm/dl (11.8-15.2) 07/21/17 05:34 Hct 35.9 % (35.5-45.6) 07/21/17 05:34 MCV 74 fl (84-94) L 07/21/17 05:34 MCH 25 pg (28-32) L 07/21/17 05:34 MCHC 33 % (32-34) 07/21/17 05:34 RDW 15.8 % (13.2-15.2) H 07/21/17 05:34 Plt Count 158 K/mm3 (140-440) 07/21/17 05:34 Add Manual Diff Complete 07/20/17 05:22 Total Counted 100 07/20/17 05:22 Seg Neuts % (Manual) 82.0 % (40.0-70.0) H 07/20/17 05:22 Band Neutrophils % 7.0 % 07/20/17 05:22 Lymphocytes % (Manual) 8.0 % (13.4-35.0) L 07/20/17 05:22 Reactive Lymphs % (Man) 0 % 07/20/17 05:22 Monocytes % (Manual) 3.0 % (0.0-7.3) 07/20/17 05:22 Eosinophils % (Manual) 0 % (0.0-4.3) 07/20/17 05:22 Basophils % (Manual) 0 % (0.0-1.8) 07/20/17 05:22 Metamyelocytes % 0 % 07/20/17 05:22 Myelocytes % 0 % 07/20/17 05:22 Promyelocytes % 0 % 07/20/17 05:22 Blast Cells % 0 % 07/20/17 05:22 Nucleated RBC % Not Reportable 07/20/17 05:22 Seg Neutrophils # Man 1.3 K/mm3 (1.8-7.7) L 07/20/17 05:22 Band Neutrophils # 0.1 K/mm3 07/20/17 05:22 Lymphocytes # (Manual) 0.1 K/mm3 (1.2-5.4) L 07/20/17 05:22 Abs React Lymphs (Man) 0.0 K/mm3 07/20/17 05:22 Monocytes # (Manual) 0.0 K/mm3 (0.0-0.8) 07/20/17 05:22 Eosinophils # (Manual) 0.0 K/mm3 (0.0-0.4) 07/20/17 05:22 Basophils # (Manual) 0.0 K/mm3 (0.0-0.1) 07/20/17 05:22 Metamyelocytes # 0.0 K/mm3 07/20/17 05:22 Myelocytes # 0.0 K/mm3 07/20/17 05:22 Promyelocytes # 0.0 K/mm3 07/20/17 05:22 Blast Cells # 0.0 K/mm3 07/20/17 05:22 WBC Morphology Not Reportable 07/20/17 05:22 Hypersegmented Neuts Not Reportable 07/20/17 05:22 Hyposegmented Neuts Not Reportable 07/20/17 05:22 Hypogranular Neuts Not Reportable 07/20/17 05:22 Smudge Cells Not Reportable 07/20/17 05:22 Toxic Granulation Not Reportable 07/20/17 05:22 Toxic Vacuolation Not Reportable 07/20/17 05:22 Dohle Bodies Not Reportable 07/20/17 05:22 Pelger-Huet Anomaly Not Reportable 07/20/17 05:22 Steffen Rods Not Reportable 07/20/17 05:22 Platelet Estimate Not Reportable 07/20/17 05:22 Clumped Platelets Not Reportable 07/20/17 05:22 Plt Clumps, EDTA Not Reportable 07/20/17 05:22 Large Platelets Not Reportable 07/20/17 05:22 Giant Platelets Not Reportable 07/20/17 05:22 Platelet Satelliting Not Reportable 07/20/17 05:22 Plt Morphology Comment Not Reportable 07/20/17 05:22 RBC Morphology Not Reportable 07/20/17 05:22 Dimorphic RBCs Not Reportable 07/20/17 05:22 Polychromasia Not Reportable 07/20/17 05:22 Hypochromasia 1+ 07/20/17 05:22 Poikilocytosis Not Reportable 07/20/17 05:22 Anisocytosis 1+ 07/20/17 05:22 Microcytosis Not Reportable 07/20/17 05:22 Macrocytosis Not Reportable 07/20/17 05:22 Spherocytes Not Reportable 07/20/17 05:22 Pappenheimer Bodies Not Reportable 07/20/17 05:22 Sickle Cells Not Reportable 07/20/17 05:22 Target Cells Not Reportable 07/20/17 05:22 Tear Drop Cells Not Reportable 07/20/17 05:22 Ovalocytes 2+ 07/20/17 05:22 Helmet Cells Not Reportable 07/20/17 05:22 [place] Bodies Not Reportable 07/20/17 05:22 [place] Rings Not Reportable 07/20/17 05:22 [place] Cells Not Reportable 07/20/17 05:22 Bite Cells Not Reportable 07/20/17 05:22 Crenated Cell Not Reportable 07/20/17 05:22 Elliptocytes Not Reportable 07/20/17 05:22 Acanthocytes (Spur) Not Reportable 07/20/17 05:22 Rouleaux Not Reportable 07/20/17 05:22 Hemoglobin C Crystals Not Reportable 07/20/17 05:22 Schistocytes Not Reportable 07/20/17 05:22 Malaria parasites Not Reportable 07/20/17 05:22 Ezekiel Bodies Not Reportable 07/20/17 05:22 Hem Pathologist Commnt No 07/20/17 05:22 PT 12.7 Sec. (12.2-14.9) 07/19/17 15:39 INR 0.91 (0.87-1.13) 07/19/17 15:39 APTT 31.2 Sec. (24.2-36.6) 07/19/17 15:39 Sodium 127 mmol/L (137-145) L 07/21/17 05:34 Potassium 4.1 mmol/L (3.6-5.0) 07/21/17 05:34 Chloride 91.2 mmol/L (98-107) L 07/21/17 05:34 Carbon Dioxide 20 mmol/L (22-30) L 07/21/17 05:34 Anion Gap 20 mmol/L 07/21/17 05:34 BUN 6 mg/dL (9-20) L 07/21/17 05:34 Creatinine 0.8 mg/dL (0.8-1.5) 07/21/17 05:34 Estimated GFR > 60 ml/min 07/21/17 05:34 BUN/Creatinine Ratio 8 % 07/21/17 05:34 Glucose 107 mg/dL (75-100) H 07/21/17 05:34 Hemoglobin A1c 6.0 % (4-6) 07/20/17 05:22 Lactic Acid 0.50 mmol/L (0.7-2.0) L 07/19/17 21:20 Calcium 8.1 mg/dL (8.4-10.2) L 07/21/17 05:34 Total Bilirubin 0.40 mg/dL (0.1-1.2) 07/20/17 05:22 Direct Bilirubin 0.2 mg/dL (0-0.2) 07/19/17 15:43 Indirect Bilirubin 0.5 mg/dL 07/19/17 15:43 AST 44 units/L (5-40) H 07/20/17 05:22 ALT 16 units/L (7-56) 07/20/17 05:22 Alkaline Phosphatase 51 units/L (35-129) 07/20/17 05:22 C-Reactive Protein 2.10 mg/dL (0.00-1.30) H 07/19/17 21:20 Total Protein 7.0 g/dL (6.3-8.2) 07/20/17 05:22 Albumin 2.8 g/dL (3.9-5) L 07/20/17 05:22 Albumin/Globulin Ratio 0.7 % 07/20/17 05:22 Urine Color Yellow (Yellow) 07/20/17 04:00 Urine Turbidity Clear (Clear) 07/20/17 04:00 Urine pH 6.0 (5.0-7.0) 07/20/17 04:00 Ur Specific [place] 1.030 (1.003-1.030) 07/20/17 04:00 Urine Protein <15 mg/dl mg/dL (Negative) 07/20/17 04:00 Urine Glucose (UA) Neg mg/dL (Negative) 07/20/17 04:00 Urine Ketones Neg mg/dL (Negative) 07/20/17 04:00 Urine Blood Neg (Negative) 07/20/17 04:00 Urine Nitrite Neg (Negative) 07/20/17 04:00 Urine Bilirubin Neg (Negative) 07/20/17 04:00 Urine Urobilinogen 2.0 mg/dL (<2.0) 07/20/17 04:00 Ur Leukocyte Esterase Neg (Negative) 07/20/17 04:00 Urine WBC (Auto) < 1.0 /HPF (0.0-6.0) 07/20/17 04:00 Urine RBC (Auto) 1.0 /HPF (0.0-6.0) 07/20/17 04:00 Hepatitis A IgM Ab Non-reactive (NonReactive) 07/19/17 21:20 Hep Bs Antigen Non-reactive (Negative) 07/19/17 21:20 Hep B Core IgM Ab Non-reactive (NonReactive) 07/19/17 21:20 Hepatitis C Antibody Non-reactive (NonReactive) 07/19/17 21:20 HIV 1&2 Antibody Rapid Reactive (Non React) 07/19/17 21:20 HIV P24 Antigen Non react (Non React) 07/19/17 21:20
[2017-07-22] MEDS: cefTRIAXone 2 GM in NACL 0.9% 20 ML IV SCH (14:40)
[2017-07-22 20:37] LABS: CD4/CD8 Ratio 0.02 (0.86-5.00)
[2017-07-23] MEDS: cefTRIAXone 2 GM in NACL 0.9% 20 ML IV SCH (11:43)
[2017-07-23] MEDS: PROTONIX PO SCH (11:46)
[2017-07-23] MEDS: TAMIFLU PO SCH ×2 (11:46→23:30)
[2017-07-23] MEDS: LOVENOX SUB-Q SCH (11:46)
[2017-07-23] MEDS: LEVAQUIN PO SCH (11:46)
[2017-07-23] MEDS: DIFLUCAN PO SCH (11:46)
[2017-07-23] MEDS: PERCOCET 5/325 PO PRN (15:14)
[2017-07-23 16:01] LABS: HIV-1 RNA QN PCR 5.52 Log cps/mL (<1.30)
--- NOTE | 2017-07-23 17:57 | Progress Note ---
Assessment and Plan Assessment and plan: Patient is a 37-year-old man originally from [place] with a history of tobacco dependency who presented with fevers, sore throat, weight loss, abdominal pain and shortness of breath * 2v CXR reported as no acute findings * CT abd/pelvis w and w/o: IMPRESSION: There are infiltrates at the right lung base. There are no pleural effusions or pneumothoraces. There are no kidney stones. There is no hydronephrosis per. There is no bowel obstruction, colitis or enteritis. The appendix is normal.. There is no ascites or free air, abscess or adenopathy.. There is a ventral hernia containing fat only. * CT chest with contrast: IMPRESSION: The heart size is normal. There is no mediastinal or hilar lymphadenopathy. The lungs are well-expanded. 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 There are infiltrates at the right lung base. There is no pulmonary nodule or mass.. There is no pleural effusion or pneumothorax.. SEPSIS PNA: Infectious Disease is following, ivf and abx, follow cultures HIV with presumably AIDS, newly diagnosed: get viral load, ID is following, Crypto antigen neg. Bactrim stopped Oral thrush candidiasis: Treat with Diflucan Neutropenia was likely related to infection: Treated infection RLL Aspiration pneumonia: iv abx, r/o TB Tobacco dependancy: savings counselor on stopping-15 MINS SPENT. Hyponatremia: Persist possible SIADH, and symptom monitoring will check urine and serum osmolarity Severe malnutrition: consult Pencil Maker, encourage po intake Urinary retention; Maybe secondary to principal disease. start on flomax, urology eval outpatinet of symptoms continue GERD: add ppi DVT prophylaxis: Subcutaneous Lovenox full code Plan discussed with patient. Continue isolation precaution History Interval history: Patient seen and examined in no acute distress this morning. Reports that he is unable to void while standing, but voids when he sits. Denies any fecal incontinence. Denies any shortness of breath nausea or vomiting this time. Hospitalist Physical - Physical exam Narrative exam: VITAL SIGNS: Reviewed. GENERAL: The patient appeared malnourished with muscle wasting. Vital signs as documented. HEAD: No signs of head trauma. EYES: Pupils are equal. Extraocular motions intact. EARS: Hearing grossly intact. MOUTH: Oral thrush NECK: No adenopathy, no JVD. CHEST: Chest with diminished breath sounds bilaterally. No wheezes, rales, or rhonchi. CARDIAC: Regular rate and rhythm. S1 and S2, without murmurs, gallops, or rubs. VASCULAR: No Edema. Peripheral pulses normal and equal in all extremities. ABDOMEN: Soft, without detectable tenderness. No sign of distention. No rebound or guarding, and no masses palpated. Bowel Sounds normal. MUSCULOSKELETAL: Good range of motion of all major joints. Extremities without clubbing, cyanosis or edema. NEUROLOGIC EXAM: Alert and oriented x 3. No focal sensory or strength deficits. Speech normal. Follows commands. PSYCHIATRIC: Mood normal. SKIN: No rash or lesions. - Constitutional Vitals: Temp Pulse Resp BP Pulse Ox 98.7 F 97 H 18 80/49 95 07/23/17 16:18 07/23/17 16:18 07/23/17 16:18 07/23/17 16:18 07/23/17 16:18 General appearance: Present: no acute distress, cachectic Results - Labs CBC & Chem 7: 07/21/17 05:34 07/21/17 05:34 Labs: Laboratory Last Values WBC 1.2 K/mm3 (4.5-11.0) L* 07/21/17 05:34 RBC 4.85 M/mm3 (3.65-5.03) 07/21/17 05:34 Hgb 11.9 gm/dl (11.8-15.2) 07/21/17 05:34 Hct 35.9 % (35.5-45.6) 07/21/17 05:34 MCV 74 fl (84-94) L 07/21/17 05:34 MCH 25 pg (28-32) L 07/21/17 05:34 MCHC 33 % (32-34) 07/21/17 05:34 RDW 15.8 % (13.2-15.2) H 07/21/17 05:34 Plt Count 158 K/mm3 (140-440) 07/21/17 05:34 Add Manual Diff Complete 07/20/17 05:22 Total Counted 100 07/20/17 05:22 Seg Neuts % (Manual) 82.0 % (40.0-70.0) H 07/20/17 05:22 Band Neutrophils % 7.0 % 07/20/17 05:22 Lymphocytes % (Manual) 8.0 % (13.4-35.0) L 07/20/17 05:22 Reactive Lymphs % (Man) 0 % 07/20/17 05:22 Monocytes % (Manual) 3.0 % (0.0-7.3) 07/20/17 05:22 Eosinophils % (Manual) 0 % (0.0-4.3) 07/20/17 05:22 Basophils % (Manual) 0 % (0.0-1.8) 07/20/17 05:22 Metamyelocytes % 0 % 07/20/17 05:22 Myelocytes % 0 % 07/20/17 05:22 Promyelocytes % 0 % 07/20/17 05:22 Blast Cells % 0 % 07/20/17 05:22 Nucleated RBC % Not Reportable 07/20/17 05:22 Seg Neutrophils # Man 1.3 K/mm3 (1.8-7.7) L 07/20/17 05:22 Band Neutrophils # 0.1 K/mm3 07/20/17 05:22 Abs Lymphs (Manual) 226 cells/uL (850-3900) L 07/19/17 21:20 Lymphocytes # (Manual) 0.1 K/mm3 (1.2-5.4) L 07/20/17 05:22 Abs React Lymphs (Man) 0.0 K/mm3 07/20/17 05:22 Monocytes # (Manual) 0.0 K/mm3 (0.0-0.8) 07/20/17 05:22 Eosinophils # (Manual) 0.0 K/mm3 (0.0-0.4) 07/20/17 05:22 Basophils # (Manual) 0.0 K/mm3 (0.0-0.1) 07/20/17 05:22 Metamyelocytes # 0.0 K/mm3 07/20/17 05:22 Myelocytes # 0.0 K/mm3 07/20/17 05:22 Promyelocytes # 0.0 K/mm3 07/20/17 05:22 Blast Cells # 0.0 K/mm3 07/20/17 05:22 WBC Morphology Not Reportable 07/20/17 05:22 Hypersegmented Neuts Not Reportable 07/20/17 05:22 Hyposegmented Neuts Not Reportable 07/20/17 05:22 Hypogranular Neuts Not Reportable 07/20/17 05:22 Smudge Cells Not Reportable 07/20/17 05:22 Toxic Granulation Not Reportable 07/20/17 05:22 Toxic Vacuolation Not Reportable 07/20/17 05:22 Dohle Bodies Not Reportable 07/20/17 05:22 Pelger-Huet Anomaly Not Reportable 07/20/17 05:22 Steffen Rods Not Reportable 07/20/17 05:22 Platelet Estimate Not Reportable 07/20/17 05:22 Clumped Platelets Not Reportable 07/20/17 05:22 Plt Clumps, EDTA Not Reportable 07/20/17 05:22 Large Platelets Not Reportable 07/20/17 05:22 Giant Platelets Not Reportable 07/20/17 05:22 Platelet Satelliting Not Reportable 07/20/17 05:22 Plt Morphology Comment Not Reportable 07/20/17 05:22 RBC Morphology Not Reportable 07/20/17 05:22 Dimorphic RBCs Not Reportable 07/20/17 05:22 Polychromasia Not Reportable 07/20/17 05:22 Hypochromasia 1+ 07/20/17 05:22 Poikilocytosis Not Reportable 07/20/17 05:22 Anisocytosis 1+ 07/20/17 05:22 Microcytosis Not Reportable 07/20/17 05:22 Macrocytosis Not Reportable 07/20/17 05:22 Spherocytes Not Reportable 07/20/17 05:22 Pappenheimer Bodies Not Reportable 07/20/17 05:22 Sickle Cells Not Reportable 07/20/17 05:22 Target Cells Not Reportable 07/20/17 05:22 Tear Drop Cells Not Reportable 07/20/17 05:22 Ovalocytes 2+ 07/20/17 05:22 Helmet Cells Not Reportable 07/20/17 05:22 Collins-[place] Bodies Not Reportable 07/20/17 05:22 [place] Rings Not Reportable 07/20/17 05:22 [place] Cells Not Reportable 07/20/17 05:22 Bite Cells Not Reportable 07/20/17 05:22 Crenated Cell Not Reportable 07/20/17 05:22 Elliptocytes Not Reportable 07/20/17 05:22 Acanthocytes (Spur) Not Reportable 07/20/17 05:22 Rouleaux Not Reportable 07/20/17 05:22 Hemoglobin C Crystals Not Reportable 07/20/17 05:22 Schistocytes Not Reportable 07/20/17 05:22 Malaria parasites Not Reportable 07/20/17 05:22 Ezekiel Bodies Not Reportable 07/20/17 05:22 Hem Pathologist Commnt No 07/20/17 05:22 PT 12.7 Sec. (12.2-14.9) 07/19/17 15:39 INR 0.91 (0.87-1.13) 07/19/17 15:39 APTT 31.2 Sec. (24.2-36.6) 07/19/17 15:39 Sodium 127 mmol/L (137-145) L 07/21/17 05:34 Potassium 4.1 mmol/L (3.6-5.0) 07/21/17 05:34 Chloride 91.2 mmol/L (98-107) L 07/21/17 05:34 Carbon Dioxide 20 mmol/L (22-30) L 07/21/17 05:34 Anion Gap 20 mmol/L 07/21/17 05:34 BUN 6 mg/dL (9-20) L 07/21/17 05:34 Creatinine 0.8 mg/dL (0.8-1.5) 07/21/17 05:34 Estimated GFR > 60 ml/min 07/21/17 05:34 BUN/Creatinine Ratio 8 % 07/21/17 05:34 Glucose 107 mg/dL (75-100) H 07/21/17 05:34 Hemoglobin A1c 6.0 % (4-6) 07/20/17 05:22 Lactic Acid 0.50 mmol/L (0.7-2.0) L 07/19/17 21:20 Calcium 8.1 mg/dL (8.4-10.2) L 07/21/17 05:34 Total Bilirubin 0.40 mg/dL (0.1-1.2) 07/20/17 05:22 Direct Bilirubin 0.2 mg/dL (0-0.2) 07/19/17 15:43 Indirect Bilirubin 0.5 mg/dL 07/19/17 15:43 AST 44 units/L (5-40) H 07/20/17 05:22 ALT 16 units/L (7-56) 07/20/17 05:22 Alkaline Phosphatase 51 units/L (35-129) 07/20/17 05:22 C-Reactive Protein 2.10 mg/dL (0.00-1.30) H 07/19/17 21:20 Total Protein 7.0 g/dL (6.3-8.2) 07/20/17 05:22 Albumin 2.8 g/dL (3.9-5) L 07/20/17 05:22 Albumin/Globulin Ratio 0.7 % 07/20/17 05:22 Urine Color Yellow (Yellow) 07/20/17 04:00 Urine Turbidity Clear (Clear) 07/20/17 04:00 Urine pH 6.0 (5.0-7.0) 07/20/17 04:00 Ur Specific [place] 1.030 (1.003-1.030) 07/20/17 04:00 Urine Protein <15 mg/dl mg/dL (Negative) 07/20/17 04:00 Urine Glucose (UA) Neg mg/dL (Negative) 07/20/17 04:00 Urine Ketones Neg mg/dL (Negative) 07/20/17 04:00 Urine Blood Neg (Negative) 07/20/17 04:00 Urine Nitrite Neg (Negative) 07/20/17 04:00 Urine Bilirubin Neg (Negative) 07/20/17 04:00 Urine Urobilinogen 2.0 mg/dL (<2.0) 07/20/17 04:00 Ur Leukocyte Esterase Neg (Negative) 07/20/17 04:00 Urine WBC (Auto) < 1.0 /HPF (0.0-6.0) 07/20/17 04:00 Urine RBC (Auto) 1.0 /HPF (0.0-6.0) 07/20/17 04:00 Lymph Enumerat CD4/CD8 0.02 (0.86-5.00) L 07/19/17 21:20 % CD3 Cells 73 % (57-85) 07/19/17 21:20 Absolute CD3 Count 164 cells/uL (840-3060) L 07/19/17 21:20 % CD4 Cells 1 % (30-61) L 07/19/17 21:20 Absolute CD4 Count 2 cells/uL (490-1740) L 07/19/17 21:20 % CD8 Cells 66 % (12-42) H 07/19/17 21:20 Absolute CD8 Count 135 cells/uL (180-1170) L 07/19/17 21:20 % CD19 Cells 13 % (6-29) 07/19/17 21:20 Absolute CD19 Count 32 cells/uL (110-660) L 07/19/17 21:20 Hepatitis A IgM Ab Non-reactive (NonReactive) 07/19/17 21:20 Hep Bs Antigen Non-reactive (Negative) 07/19/17 21:20 Hep B Core IgM Ab Non-reactive (NonReactive) 07/19/17 21:20 Hepatitis C Antibody Non-reactive (NonReactive) 07/19/17 21:20 HIV-1 RNA PCR copies/ml 212691 copies/mL (<20) H 07/19/17 21:20 HIV-1 RNA (PCR) log 5.52 Log cps/mL (<1.30) H 07/19/17 21:20 HIV 1&2 Antibody Rapid Reactive (Non React) 07/19/17 21:20 HIV P24 Antigen Non react (Non React) 07/19/17 21:20
[2017-07-23] MEDS: FLOMAX PO SCH (23:30)
[2017-07-23] MEDS: AMBIEN PO PRN (23:30)
[2017-07-23] MEDS: TYLENOL PO PRN (23:40)
[2017-07-24 08:43] LABS: Hematocrit 41.9 % (35.5-45.6); Hemoglobin 13.9 gm/dl (11.8-15.2); Mean Corpuscular HGB Conc 33 % (32-34); Mean Corpuscular Volume 74 fl (84-94); Red Blood Count 5.68 M/mm3 (3.65-5.03); Red Cell Distribution Width 15.9 % (13.2-15.2)
[2017-07-24 08:45] LABS: Mean Corpuscular Hemoglobin 24 pg (28-32)
[2017-07-24 09:15] LABS: Calcium 8.4 mg/dL (8.4-10.2)
[2017-07-24 09:44] LABS: Platelet Count 141 K/mm3 (140-440)
[2017-07-24] MEDS: PROTONIX PO SCH (10:19)
[2017-07-24] MEDS: LEVAQUIN PO SCH (10:19)
[2017-07-24] MEDS: DIFLUCAN PO SCH (10:19)
[2017-07-24] MEDS: TAMIFLU PO SCH (10:19)
[2017-07-24] MEDS: LOVENOX SUB-Q SCH (10:19)
[2017-07-24] MEDS: cefTRIAXone 2 GM in NACL 0.9% 20 ML IV SCH (10:31)
--- NOTE | 2017-07-24 13:33 | Progress Note ---
Assessment and Plan Assessment: 1) Sepsis: better. Etiology -pneumonia 2) RLL Pneumonia: CXR neg. CT chest + RLL inflitrate. ? influenza ? CAP ?TB ? opportunistic -CRP 2.1 -influenza antigen neg 3) Oral candidiasis - better 4) Weight loss: from HIV / AIDS 5) Newly diagnosed HIV ? unknown CD4/VL. Cryptococcal antigen neg 6) Neutropenia: from HIV ? MAC ? malignancy ?infection? Improving 7) Hyponatremia 8) Homeless Plan: -airborne isolation -patient is homeless with abnormal CT chest -obtain AFB x 3 and quantiferon TB gold -continue fluconazole, tamiflu, ceftriaone and levaquin -case management manager anuj for half-way placement Thank you Dr Le for your consultation, will follow up with you. Katlyn Arzate NP-C for Dr. Mishel Fry MD Infectious Diseases Specialist [facility] ([facility]) M [phone] O [phone] Subjective Date of service: 07/24/17 Principal diagnosis: leukopenia, fever, thrush Interval history: My knees hurt, Microbiology: Blood cultures: 07/19 in progress Respiratory cultures: influenza negative 07/19 Cryptococcus antigen negative Urine culture: negative Current Antimicrobials: Ceftriaoxne 07/20 levaquin 07/20 Diflucan 07/19 tamiflu07/19 bactrim 07/19 Previous Antimicrobials: Vancomycin Zosyn 07/20 Objective - Exam Narrative Exam: General appearance: Alert in NAD, conversant Eyes: anicteric sclerae, moist conjunctivae; no lid-lag; PERRLA HENT: Atraumatic; oropharynx +marked thrush Neck: Trachea midline; supple, no thyromegaly or lymphadenopathy Lungs: scattered crackles demarcus CV: RRR s1 s2 Abdomen: Soft, non-tender; no masses or hepatosplenomegaly Extremities: No peripheral edema or extremity lymphadenopathy Skin: Normal temperature, turgor and texture; no rash, ulcers or subcutaneous nodules Psych: Appropriate affect, calm and cooperative Neuro: alert and oriented x 3. Moving all extermities Lines: No CVL / PICC - Constitutional Vitals: Vital Signs Temp Pulse Resp BP Pulse Ox 100.7 F H 119 H 14 88/61 92 07/24/17 07:32 07/24/17 07:32 07/24/17 07:32 07/24/17 07:32 07/24/17 07:32 Temperature -Last 24 Hours Temperature 100.7 F Temperature 102.9 F Temperature 98.7 F - Labs CBC & Chem 7: 07/24/17 08:24 07/24/17 08:24 Labs: Abnormal lab results 07/19/17 07/24/17 07/24/17 Range/Units 21:20 08:24 08:24 WBC 2.3 L (4.5-11.0) K/mm3 RBC 5.68 H (3.65-5.03) M/mm3 MCV 74 L (84-94) fl MCH 24 L (28-32) pg RDW 15.9 H (13.2-15.2) % Sodium 123 L (137-145) mmol/L Potassium 6.0 H D (3.6-5.0) mmol/L Chloride 88.2 L (98-107) mmol/L Carbon Dioxide 19 L (22-30) mmol/L BUN 21 H (9-20) mg/dL Creatinine 1.9 H D (0.8-1.5) mg/dL HIV-1 RNA PCR copies/ml 000594 H (<20) copies/mL HIV-1 RNA (PCR) log 5.52 H (<1.30) Log cps/mL
--- NOTE | 2017-07-24 16:24 | Progress Note ---
Assessment and Plan Assessment and plan: Patient is a 37-year-old man originally from [place] with a history of tobacco dependency who presented with fevers, sore throat, weight loss, abdominal pain and shortness of breath * 2v CXR reported as no acute findings * CT abd/pelvis w and w/o: IMPRESSION: There are infiltrates at the right lung base. There are no pleural effusions or pneumothoraces. There are no kidney stones. There is no hydronephrosis per. There is no bowel obstruction, colitis or enteritis. The appendix is normal.. There is no ascites or free air, abscess or adenopathy.. There is a ventral hernia containing fat only. * CT chest with contrast: IMPRESSION: The heart size is normal. There is no mediastinal or hilar lymphadenopathy. The lungs are well-expanded. 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 There are infiltrates at the right lung base. There is no pulmonary nodule or mass.. There is no pleural effusion or pneumothorax.. SEPSIS PNA: Infectious Disease is following, ivf and abx, follow cultures Doubt Tb HIV with presumably AIDS, newly diagnosed: CD4 -1, ID is following, Crypto antigen neg. Will discuss with ID about PCP prophylaxis Oral thrush candidiasis: Treat with Diflucan Neutropenia was likely related to infection: Treated infection RADHA-Repeat study Hyperkalemia-Repeat study RLL Aspiration pneumonia: iv abx, r/o TB Tobacco dependancy: breastfeeding peer counselor on stopping-15 MINS SPENT. Hyponatremia: Persist possible SIADH, and symptom monitoring will check urine and serum osmolarity Severe malnutrition: consult [facility]yer, encourage po intake Urinary retention; Maybe secondary to principal disease. start on flomax, urology eval outpatinet of symptoms continue GERD: add ppi DVT prophylaxis: Subcutaneous Lovenox full code Plan discussed with patient. Continue isolation precaution History Interval history: Patient seen and examined in no acute distress this morning. No new complaints. No phlegm yet. Hospitalist Physical - Physical exam Narrative exam: VITAL SIGNS: Reviewed. GENERAL: The patient appeared malnourished with muscle wasting. Vital signs as documented. HEAD: No signs of head trauma. EYES: Pupils are equal. Extraocular motions intact. EARS: Hearing grossly intact. MOUTH: Oral thrush NECK: No adenopathy, no JVD. CHEST: Chest with diminished breath sounds bilaterally. No wheezes, rales, or rhonchi. CARDIAC: Regular rate and rhythm. S1 and S2, without murmurs, gallops, or rubs. VASCULAR: No Edema. Peripheral pulses normal and equal in all extremities. ABDOMEN: Soft, without detectable tenderness. No sign of distention. No rebound or guarding, and no masses palpated. Bowel Sounds normal. MUSCULOSKELETAL: Good range of motion of all major joints. Extremities without clubbing, cyanosis or edema. NEUROLOGIC EXAM: Alert and oriented x 3. No focal sensory or strength deficits. Speech normal. Follows commands. PSYCHIATRIC: Mood normal. SKIN: No rash or lesions. - Constitutional Vitals: Temp Pulse Resp BP Pulse Ox 98.3 F 119 H 4 L 91/58 92 07/24/17 15:11 07/24/17 07:32 07/24/17 15:11 07/24/17 15:11 07/24/17 07:32 General appearance: Present: no acute distress, cachectic Results - Labs CBC & Chem 7: 07/24/17 08:24 07/24/17 08:24 Labs: Laboratory Last Values WBC 2.3 K/mm3 (4.5-11.0) L 07/24/17 08:24 RBC 5.68 M/mm3 (3.65-5.03) H 07/24/17 08:24 Hgb 13.9 gm/dl (11.8-15.2) 07/24/17 08:24 Hct 41.9 % (35.5-45.6) 07/24/17 08:24 MCV 74 fl (84-94) L 07/24/17 08:24 MCH 24 pg (28-32) L 07/24/17 08:24 MCHC 33 % (32-34) 07/24/17 08:24 RDW 15.9 % (13.2-15.2) H 07/24/17 08:24 Plt Count 141 K/mm3 (140-440) 07/24/17 08:24 Add Manual Diff Complete 07/20/17 05:22 Total Counted 100 07/20/17 05:22 Seg Neuts % (Manual) 82.0 % (40.0-70.0) H 07/20/17 05:22 Band Neutrophils % 7.0 % 07/20/17 05:22 Lymphocytes % (Manual) 8.0 % (13.4-35.0) L 07/20/17 05:22 Reactive Lymphs % (Man) 0 % 07/20/17 05:22 Monocytes % (Manual) 3.0 % (0.0-7.3) 07/20/17 05:22 Eosinophils % (Manual) 0 % (0.0-4.3) 07/20/17 05:22 Basophils % (Manual) 0 % (0.0-1.8) 07/20/17 05:22 Metamyelocytes % 0 % 07/20/17 05:22 Myelocytes % 0 % 07/20/17 05:22 Promyelocytes % 0 % 07/20/17 05:22 Blast Cells % 0 % 07/20/17 05:22 Nucleated RBC % Not Reportable 07/20/17 05:22 Seg Neutrophils # Man 1.3 K/mm3 (1.8-7.7) L 07/20/17 05:22 Band Neutrophils # 0.1 K/mm3 07/20/17 05:22 Abs Lymphs (Manual) 226 cells/uL (850-3900) L 07/19/17 21:20 Lymphocytes # (Manual) 0.1 K/mm3 (1.2-5.4) L 07/20/17 05:22 Abs React Lymphs (Man) 0.0 K/mm3 07/20/17 05:22 Monocytes # (Manual) 0.0 K/mm3 (0.0-0.8) 07/20/17 05:22 Eosinophils # (Manual) 0.0 K/mm3 (0.0-0.4) 07/20/17 05:22 Basophils # (Manual) 0.0 K/mm3 (0.0-0.1) 07/20/17 05:22 Metamyelocytes # 0.0 K/mm3 07/20/17 05:22 Myelocytes # 0.0 K/mm3 07/20/17 05:22 Promyelocytes # 0.0 K/mm3 07/20/17 05:22 Blast Cells # 0.0 K/mm3 07/20/17 05:22 WBC Morphology Not Reportable 07/20/17 05:22 Hypersegmented Neuts Not Reportable 07/20/17 05:22 Hyposegmented Neuts Not Reportable 07/20/17 05:22 Hypogranular Neuts Not Reportable 07/20/17 05:22 Smudge Cells Not Reportable 07/20/17 05:22 Toxic Granulation Not Reportable 07/20/17 05:22 Toxic Vacuolation Not Reportable 07/20/17 05:22 Dohle Bodies Not Reportable 07/20/17 05:22 Pelger-Huet Anomaly Not Reportable 07/20/17 05:22 Steffen Rods Not Reportable 07/20/17 05:22 Platelet Estimate Not Reportable 07/20/17 05:22 Clumped Platelets Not Reportable 07/20/17 05:22 Plt Clumps, EDTA Not Reportable 07/20/17 05:22 Large Platelets Not Reportable 07/20/17 05:22 Giant Platelets Not Reportable 07/20/17 05:22 Platelet Satelliting Not Reportable 07/20/17 05:22 Plt Morphology Comment Not Reportable 07/20/17 05:22 RBC Morphology Not Reportable 07/20/17 05:22 Dimorphic RBCs Not Reportable 07/20/17 05:22 Polychromasia Not Reportable 07/20/17 05:22 Hypochromasia 1+ 07/20/17 05:22 Poikilocytosis Not Reportable 07/20/17 05:22 Anisocytosis 1+ 07/20/17 05:22 Microcytosis Not Reportable 07/20/17 05:22 Macrocytosis Not Reportable 07/20/17 05:22 Spherocytes Not Reportable 07/20/17 05:22 Pappenheimer Bodies Not Reportable 07/20/17 05:22 Sickle Cells Not Reportable 07/20/17 05:22 Target Cells Not Reportable 07/20/17 05:22 Tear Drop Cells Not Reportable 07/20/17 05:22 Ovalocytes 2+ 07/20/17 05:22 Helmet Cells Not Reportable 07/20/17 05:22 [place] Bodies Not Reportable 07/20/17 05:22 [place] Rings Not Reportable 07/20/17 05:22 [place] Cells Not Reportable 07/20/17 05:22 Bite Cells Not Reportable 07/20/17 05:22 Crenated Cell Not Reportable 07/20/17 05:22 Elliptocytes Not Reportable 07/20/17 05:22 Acanthocytes (Spur) Not Reportable 07/20/17 05:22 Rouleaux Not Reportable 07/20/17 05:22 Hemoglobin C Crystals Not Reportable 07/20/17 05:22 Schistocytes Not Reportable 07/20/17 05:22 Malaria parasites Not Reportable 07/20/17 05:22 Ezekiel Bodies Not Reportable 07/20/17 05:22 Hem Pathologist Commnt No 07/20/17 05:22 PT 12.7 Sec. (12.2-14.9) 07/19/17 15:39 INR 0.91 (0.87-1.13) 07/19/17 15:39 APTT 31.2 Sec. (24.2-36.6) 07/19/17 15:39 Sodium 123 mmol/L (137-145) L 07/24/17 08:24 Potassium 6.0 mmol/L (3.6-5.0) H D 07/24/17 08:24 Chloride 88.2 mmol/L (98-107) L 07/24/17 08:24 Carbon Dioxide 19 mmol/L (22-30) L 07/24/17 08:24 Anion Gap 22 mmol/L 07/24/17 08:24 BUN 21 mg/dL (9-20) H 07/24/17 08:24 Creatinine 1.9 mg/dL (0.8-1.5) H D 07/24/17 08:24 Estimated GFR 48 ml/min 07/24/17 08:24 BUN/Creatinine Ratio 11 % 07/24/17 08:24 Glucose 97 mg/dL (75-100) 07/24/17 08:24 Hemoglobin A1c 6.0 % (4-6) 07/20/17 05:22 Lactic Acid 0.50 mmol/L (0.7-2.0) L 07/19/17 21:20 Calcium 8.4 mg/dL (8.4-10.2) 07/24/17 08:24 Total Bilirubin 0.40 mg/dL (0.1-1.2) 07/20/17 05:22 Direct Bilirubin 0.2 mg/dL (0-0.2) 07/19/17 15:43 Indirect Bilirubin 0.5 mg/dL 07/19/17 15:43 AST 44 units/L (5-40) H 07/20/17 05:22 ALT 16 units/L (7-56) 07/20/17 05:22 Alkaline Phosphatase 51 units/L (35-129) 07/20/17 05:22 C-Reactive Protein 2.10 mg/dL (0.00-1.30) H 07/19/17 21:20 Total Protein 7.0 g/dL (6.3-8.2) 07/20/17 05:22 Albumin 2.8 g/dL (3.9-5) L 07/20/17 05:22 Albumin/Globulin Ratio 0.7 % 07/20/17 05:22 Urine Color Yellow (Yellow) 07/20/17 04:00 Urine Turbidity Clear (Clear) 07/20/17 04:00 Urine pH 6.0 (5.0-7.0) 07/20/17 04:00 Ur Specific [place] 1.030 (1.003-1.030) 07/20/17 04:00 Urine Protein <15 mg/dl mg/dL (Negative) 07/20/17 04:00 Urine Glucose (UA) Neg mg/dL (Negative) 07/20/17 04:00 Urine Ketones Neg mg/dL (Negative) 07/20/17 04:00 Urine Blood Neg (Negative) 07/20/17 04:00 Urine Nitrite Neg (Negative) 07/20/17 04:00 Urine Bilirubin Neg (Negative) 07/20/17 04:00 Urine Urobilinogen 2.0 mg/dL (<2.0) 07/20/17 04:00 Ur Leukocyte Esterase Neg (Negative) 07/20/17 04:00 Urine WBC (Auto) < 1.0 /HPF (0.0-6.0) 07/20/17 04:00 Urine RBC (Auto) 1.0 /HPF (0.0-6.0) 07/20/17 04:00 Lymph Enumerat CD4/CD8 0.02 (0.86-5.00) L 07/19/17 21:20 % CD3 Cells 73 % (57-85) 07/19/17 21:20 Absolute CD3 Count 164 cells/uL (840-3060) L 07/19/17 21:20 % CD4 Cells 1 % (30-61) L 07/19/17 21:20 Absolute CD4 Count 2 cells/uL (490-1740) L 07/19/17 21:20 % CD8 Cells 66 % (12-42) H 07/19/17 21:20 Absolute CD8 Count 135 cells/uL (180-1170) L 07/19/17 21:20 % CD19 Cells 13 % (6-29) 07/19/17 21:20 Absolute CD19 Count 32 cells/uL (110-660) L 07/19/17 21:20 Hepatitis A IgM Ab Non-reactive (NonReactive) 07/19/17 21:20 Hep Bs Antigen Non-reactive (Negative) 07/19/17 21:20 Hep B Core IgM Ab Non-reactive (NonReactive) 07/19/17 21:20 Hepatitis C Antibody Non-reactive (NonReactive) 07/19/17 21:20 HIV-1 RNA PCR copies/ml 075602 copies/mL (<20) H 07/19/17 21:20 HIV-1 RNA (PCR) log 5.52 Log cps/mL (<1.30) H 07/19/17 21:20 HIV 1&2 Antibody Rapid Reactive (Non React) 07/19/17 21:20 HIV P24 Antigen Non react (Non React) 07/19/17 21:20
[2017-07-24] MEDS ORDERED: KIONEX PO ONE (17:00)
[2017-07-24] MEDS: FLOMAX PO SCH (22:31)
[2017-07-24] MEDS: AMBIEN PO PRN (22:32)
[2017-07-25 09:42] LABS: Hematocrit 36.5 % (35.5-45.6); Hemoglobin 12.3 gm/dl (11.8-15.2); Mean Corpuscular HGB Conc 34 % (32-34); Mean Corpuscular Volume 73 fl (84-94); Red Blood Count 5.02 M/mm3 (3.65-5.03); Red Cell Distribution Width 16.1 % (13.2-15.2)
[2017-07-25 09:43] LABS: Mean Corpuscular Hemoglobin 25 pg (28-32)
[2017-07-25] MEDS: LEVAQUIN PO SCH (09:51)
[2017-07-25] MEDS: LOVENOX SUB-Q SCH (09:51)
[2017-07-25] MEDS: DIFLUCAN PO SCH (09:51)
[2017-07-25] MEDS: PROTONIX PO SCH (09:51)
[2017-07-25] MEDS: cefTRIAXone 2 GM in NACL 0.9% 20 ML IV SCH (09:51)
[2017-07-25 10:02] LABS: Calcium 7.9 mg/dL (8.4-10.2)
[2017-07-25 10:58] LABS: Platelet Count 117 K/mm3 (140-440)
--- NOTE | 2017-07-25 12:08 | Progress Note ---
Assessment and Plan Assessment: 1) Sepsis: still tachycardic and hypotensive. Etiology -pneumonia 2) RLL Pneumonia: CXR neg. CT chest + RLL inflitrate. ? influenza ? CAP ?TB ? opportunistic -CRP 2.1 -influenza antigen neg 3) Oral candidiasis - better 4) Weight loss: from HIV / AIDS 5) Newly diagnosed HIV ? unknown CD4/VL. Cryptococcal antigen neg 6) Neutropenia: Better. from HIV ? MAC ? malignancy ?infection? Improving 7) Hyponatremia; worsening 8) Homeless Plan: -continue airborne isolation -patient is homeless with abnormal CT chest -follow up AFB x 3 and quantiferon TB gold -continue fluconazole for 14 days tamiflu x 5 days -continue ceftriaone and levaquin total 7 days -sample case porter brentfredi for long term placement Thank you Dr Le for your consultation, will follow up with you. 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 Misehl Fry MD Infectious Diseases Specialist [facility] ([facility]) M [phone] O [phone] Subjective Date of service: 07/25/17 Principal diagnosis: leukopenia, fever, thrush Interval history: My knees hurt, Microbiology: Blood cultures: 07/19 in progress Respiratory cultures: influenza negative 07/19 Cryptococcus antigen negative Urine culture: negative Current Antimicrobials: Ceftriaoxne 07/20 levaquin 07/20 Diflucan 07/19 tamiflu07/19 bactrim 07/19 Previous Antimicrobials: Vancomycin Zosyn 07/20 Objective - Exam Narrative Exam: General appearance: Alert in NAD, conversant Eyes: anicteric sclerae, moist conjunctivae; no lid-lag; PERRLA HENT: Atraumatic; oropharynx +marked thrush Neck: Trachea midline; supple, no thyromegaly or lymphadenopathy Lungs: scattered crackles demarcus CV: RRR s1 s2 Abdomen: Soft, non-tender; no masses or hepatosplenomegaly Extremities: No peripheral edema or extremity lymphadenopathy Skin: Normal temperature, turgor and texture; no rash, ulcers or subcutaneous nodules Psych: Appropriate affect, calm and cooperative Neuro: alert and oriented x 3. Moving all extermities Lines: No CVL / PICC - Constitutional Vitals: Vital Signs Temp Pulse Resp BP Pulse Ox 98.3 F 113 H 14 85/57 96 07/25/17 07:41 01/30/18 07:41 07/25/17 07:41 07/25/17 07:41 07/25/17 07:41 Temperature -Last 24 Hours Temperature 98.3 F Temperature 100.7 F Temperature 98.3 F - Labs CBC & Chem 7: 07/25/17 08:49 07/25/17 08:49 Labs: Abnormal lab results 07/25/17 07/25/17 Range/Units 08:49 08:49 WBC 2.6 L (4.5-11.0) K/mm3 MCV 73 L (84-94) fl MCH 25 L (28-32) pg RDW 16.1 H (13.2-15.2) % Plt Count 117 L (140-440) K/mm3 Sodium 122 L (137-145) mmol/L Chloride 88.0 L (98-107) mmol/L Carbon Dioxide 17 L (22-30) mmol/L BUN 31 H (9-20) mg/dL Creatinine 2.0 H (0.8-1.5) mg/dL Glucose 124 H (75-100) mg/dL Calcium 7.9 L (8.4-10.2) mg/dL
[2017-07-25] MEDS ORDERED: NACL 0.9% 1000 ML 1,000 ML with SODIUM BICARBONATE 25 MEQ IV SCH (14:00)
[2017-07-25] MEDS ORDERED: NACL 0.9% 1000 ML 1,000 ML IV SCH (14:00)
--- NOTE | 2017-07-25 14:00 | Progress Note ---
Assessment and Plan Assessment and plan: Patient is a 37-year-old man originally from [place] with a history of tobacco dependency who presented with fevers, sore throat, weight loss, abdominal pain and shortness of breath * 2v CXR reported as no acute findings * CT abd/pelvis w and w/o: IMPRESSION: There are infiltrates at the right lung base. There are no pleural effusions or pneumothoraces. There are no kidney stones. There is no hydronephrosis per. There is no bowel obstruction, colitis or enteritis. The appendix is normal.. There is no ascites or free air, abscess or adenopathy.. There is a ventral hernia containing fat only. * CT chest with contrast: IMPRESSION: The heart size is normal. There is no mediastinal or hilar lymphadenopathy. The lungs are well-expanded. 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 There are infiltrates at the right lung base. There is no pulmonary nodule or mass.. There is no pleural effusion or pneumothorax.. SEPSIS PNA: Infectious Disease is following, ivf and abx, follow cultures Doubt Tb HIV with presumably AIDS, newly diagnosed: CD4 -1, ID is following, Crypto antigen neg. Will discuss with ID about PCP prophylaxis. Not been ruled out for TB Oral thrush candidiasis: Treat with Diflucan Neutropenia was likely related to infection: Treated infection Acute kidney injury- Possible secondary to visible nephropathy. Patient received a contrast study recently also. 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 Hyponatremia: Persist possible SIADH, and symptom monitoring will check urine and serum osmolarity Severe malnutrition: consult Superintendent Custodian Janitor, encourage po intake Urinary retention; Maybe secondary to principal disease. start on flomax, urology eval outpatient of symptoms continue GERD: add ppi DVT prophylaxis: Subcutaneous Lovenox full code Plan discussed with patient. Continue isolation precaution History Interval history: Patient seen and examined in no acute distress this morning. No new complaints. Hospitalist Physical - Physical exam Narrative exam: VITAL SIGNS: Reviewed. GENERAL: The patient appeared malnourished with muscle wasting. Vital signs as documented. HEAD: No signs of head trauma. EYES: Pupils are equal. Extraocular motions intact. EARS: Hearing grossly intact. MOUTH: Oral thrush NECK: No adenopathy, no JVD. CHEST: Chest with diminished breath sounds bilaterally. No wheezes, rales, or rhonchi. CARDIAC: Regular rate and rhythm. S1 and S2, without murmurs, gallops, or rubs. VASCULAR: No Edema. Peripheral pulses normal and equal in all extremities. ABDOMEN: Soft, without detectable tenderness. No sign of distention. No rebound or guarding, and no masses palpated. Bowel Sounds normal. MUSCULOSKELETAL: Good range of motion of all major joints. Extremities without clubbing, cyanosis or edema. NEUROLOGIC EXAM: Alert and oriented x 3. No focal sensory or strength deficits. Speech normal. Follows commands. PSYCHIATRIC: Mood normal. SKIN: Some skin deformities and discoloration.. - Constitutional Vitals: Temp Pulse Resp BP Pulse Ox 98.3 F 113 H 14 85/57 96 07/25/17 07:41 07/25/17 07:41 07/25/17 07:41 07/25/17 07:41 07/25/17 07:41 General appearance: Present: no acute distress, cachectic Results - Labs CBC & Chem 7: 07/25/17 08:49 07/25/17 08:49 Labs: Laboratory Last Values WBC 2.6 K/mm3 (4.5-11.0) L 07/25/17 08:49 RBC 5.02 M/mm3 (3.65-5.03) 07/25/17 08:49 Hgb 12.3 gm/dl (11.8-15.2) 07/25/17 08:49 Hct 36.5 % (35.5-45.6) 07/25/17 08:49 MCV 73 fl (84-94) L 07/25/17 08:49 MCH 25 pg (28-32) L 07/25/17 08:49 MCHC 34 % (32-34) 07/25/17 08:49 RDW 16.1 % (13.2-15.2) H 07/25/17 08:49 Plt Count 117 K/mm3 (140-440) L 07/25/17 08:49 Add Manual Diff Complete 07/20/17 05:22 Total Counted 100 07/20/17 05:22 Seg Neuts % (Manual) 82.0 % (40.0-70.0) H 07/20/17 05:22 Band Neutrophils % 7.0 % 07/20/17 05:22 Lymphocytes % (Manual) 8.0 % (13.4-35.0) L 07/20/17 05:22 Reactive Lymphs % (Man) 0 % 07/20/17 05:22 Monocytes % (Manual) 3.0 % (0.0-7.3) 07/20/17 05:22 Eosinophils % (Manual) 0 % (0.0-4.3) 07/20/17 05:22 Basophils % (Manual) 0 % (0.0-1.8) 07/20/17 05:22 Metamyelocytes % 0 % 07/20/17 05:22 Myelocytes % 0 % 07/20/17 05:22 Promyelocytes % 0 % 07/20/17 05:22 Blast Cells % 0 % 07/20/17 05:22 Nucleated RBC % Not Reportable 07/20/17 05:22 Seg Neutrophils # Man 1.3 K/mm3 (1.8-7.7) L 07/20/17 05:22 Band Neutrophils # 0.1 K/mm3 07/20/17 05:22 Abs Lymphs (Manual) 226 cells/uL (850-3900) L 07/19/17 21:20 Lymphocytes # (Manual) 0.1 K/mm3 (1.2-5.4) L 07/20/17 05:22 Abs React Lymphs (Man) 0.0 K/mm3 07/20/17 05:22 Monocytes # (Manual) 0.0 K/mm3 (0.0-0.8) 07/20/17 05:22 Eosinophils # (Manual) 0.0 K/mm3 (0.0-0.4) 07/20/17 05:22 Basophils # (Manual) 0.0 K/mm3 (0.0-0.1) 07/20/17 05:22 Metamyelocytes # 0.0 K/mm3 07/20/17 05:22 Myelocytes # 0.0 K/mm3 07/20/17 05:22 Promyelocytes # 0.0 K/mm3 07/20/17 05:22 Blast Cells # 0.0 K/mm3 07/20/17 05:22 WBC Morphology Not Reportable 07/20/17 05:22 Hypersegmented Neuts Not Reportable 07/20/17 05:22 Hyposegmented Neuts Not Reportable 07/20/17 05:22 Hypogranular Neuts Not Reportable 07/20/17 05:22 Smudge Cells Not Reportable 07/20/17 05:22 Toxic Granulation Not Reportable 07/20/17 05:22 Toxic Vacuolation Not Reportable 07/20/17 05:22 Dohle Bodies Not Reportable 07/20/17 05:22 Pelger-Huet Anomaly Not Reportable 07/20/17 05:22 Steffen Rods Not Reportable 07/20/17 05:22 Platelet Estimate Not Reportable 07/20/17 05:22 Clumped Platelets Not Reportable 07/20/17 05:22 Plt Clumps, EDTA Not Reportable 07/20/17 05:22 Large Platelets Not Reportable 07/20/17 05:22 Giant Platelets Not Reportable 07/20/17 05:22 Platelet Satelliting Not Reportable 07/20/17 05:22 Plt Morphology Comment Not Reportable 07/20/17 05:22 RBC Morphology Not Reportable 07/20/17 05:22 Dimorphic RBCs Not Reportable 07/20/17 05:22 Polychromasia Not Reportable 07/20/17 05:22 Hypochromasia 1+ 07/20/17 05:22 Poikilocytosis Not Reportable 07/20/17 05:22 Anisocytosis 1+ 07/20/17 05:22 Microcytosis Not Reportable 07/20/17 05:22 Macrocytosis Not Reportable 07/20/17 05:22 Spherocytes Not Reportable 07/20/17 05:22 Pappenheimer Bodies Not Reportable 07/20/17 05:22 Sickle Cells Not Reportable 07/20/17 05:22 Target Cells Not Reportable 07/20/17 05:22 Tear Drop Cells Not Reportable 07/20/17 05:22 Ovalocytes 2+ 07/20/17 05:22 Helmet Cells Not Reportable 07/20/17 05:22 [place] Bodies Not Reportable 07/20/17 05:22 [place] Rings Not Reportable 07/20/17 05:22 [place] Cells Not Reportable 07/20/17 05:22 Bite Cells Not Reportable 07/20/17 05:22 Crenated Cell Not Reportable 07/20/17 05:22 Elliptocytes Not Reportable 07/20/17 05:22 Acanthocytes (Spur) Not Reportable 07/20/17 05:22 Rouleaux Not Reportable 07/20/17 05:22 Hemoglobin C Crystals Not Reportable 07/20/17 05:22 Schistocytes Not Reportable 07/20/17 05:22 Malaria parasites Not Reportable 07/20/17 05:22 Ezekiel Bodies Not Reportable 07/20/17 05:22 Hem Pathologist Commnt No 07/20/17 05:22 PT 12.7 Sec. (12.2-14.9) 07/19/17 15:39 INR 0.91 (0.87-1.13) 07/19/17 15:39 APTT 31.2 Sec. (24.2-36.6) 07/19/17 15:39 Sodium 122 mmol/L (137-145) L 07/25/17 08:49 Potassium 4.2 mmol/L (3.6-5.0) D 07/25/17 08:49 Chloride 88.0 mmol/L (98-107) L 07/25/17 08:49 Carbon Dioxide 17 mmol/L (22-30) L 07/25/17 08:49 Anion Gap 21 mmol/L 07/25/17 08:49 BUN 31 mg/dL (9-20) H 07/25/17 08:49 Creatinine 2.0 mg/dL (0.8-1.5) H 07/25/17 08:49 Estimated GFR 45 ml/min 07/25/17 08:49 BUN/Creatinine Ratio 16 % 07/25/17 08:49 Glucose 124 mg/dL (75-100) H 07/25/17 08:49 Hemoglobin A1c 6.0 % (4-6) 07/20/17 05:22 Lactic Acid 0.50 mmol/L (0.7-2.0) L 07/19/17 21:20 Calcium 7.9 mg/dL (8.4-10.2) L 07/25/17 08:49 Total Bilirubin 0.40 mg/dL (0.1-1.2) 07/20/17 05:22 Direct Bilirubin 0.2 mg/dL (0-0.2) 07/19/17 15:43 Indirect Bilirubin 0.5 mg/dL 07/19/17 15:43 AST 44 units/L (5-40) H 07/20/17 05:22 ALT 16 units/L (7-56) 07/20/17 05:22 Alkaline Phosphatase 51 units/L (35-129) 07/20/17 05:22 C-Reactive Protein 2.10 mg/dL (0.00-1.30) H 07/19/17 21:20 Total Protein 7.0 g/dL (6.3-8.2) 07/20/17 05:22 Albumin 2.8 g/dL (3.9-5) L 07/20/17 05:22 Albumin/Globulin Ratio 0.7 % 07/20/17 05:22 Urine Color Yellow (Yellow) 07/20/17 04:00 Urine Turbidity Clear (Clear) 07/20/17 04:00 Urine pH 6.0 (5.0-7.0) 07/20/17 04:00 Ur Specific [place] 1.030 (1.003-1.030) 07/20/17 04:00 Urine Protein <15 mg/dl mg/dL (Negative) 07/20/17 04:00 Urine Glucose (UA) Neg mg/dL (Negative) 07/20/17 04:00 Urine Ketones Neg mg/dL (Negative) 07/20/17 04:00 Urine Blood Neg (Negative) 07/20/17 04:00 Urine Nitrite Neg (Negative) 07/20/17 04:00 Urine Bilirubin Neg (Negative) 07/20/17 04:00 Urine Urobilinogen 2.0 mg/dL (<2.0) 07/20/17 04:00 Ur Leukocyte Esterase Neg (Negative) 07/20/17 04:00 Urine WBC (Auto) < 1.0 /HPF (0.0-6.0) 07/20/17 04:00 Urine RBC (Auto) 1.0 /HPF (0.0-6.0) 07/20/17 04:00 Lymph Enumerat CD4/CD8 0.02 (0.86-5.00) L 07/19/17 21:20 % CD3 Cells 73 % (57-85) 07/19/17 21:20 Absolute CD3 Count 164 cells/uL (840-3060) L 07/19/17 21:20 % CD4 Cells 1 % (30-61) L 07/19/17 21:20 Absolute CD4 Count 2 cells/uL (490-1740) L 07/19/17 21:20 % CD8 Cells 66 % (12-42) H 07/19/17 21:20 Absolute CD8 Count 135 cells/uL (180-1170) L 07/19/17 21:20 % CD19 Cells 13 % (6-29) 07/19/17 21:20 Absolute CD19 Count 32 cells/uL (110-660) L 07/19/17 21:20 Hepatitis A IgM Ab Non-reactive (NonReactive) 07/19/17 21:20 Hep Bs Antigen Non-reactive (Negative) 07/19/17 21:20 Hep B Core IgM Ab Non-reactive (NonReactive) 07/19/17 21:20 Hepatitis C Antibody Non-reactive (NonReactive) 07/19/17 21:20 HIV-1 RNA PCR copies/ml 222568 copies/mL (<20) H 07/19/17 21:20 HIV-1 RNA (PCR) log 5.52 Log cps/mL (<1.30) H 07/19/17 21:20 HIV 1&2 Antibody Rapid Reactive (Non React) 07/19/17 21:20 HIV P24 Antigen Non react (Non React) 07/19/17 21:20
--- NOTE | 2017-07-25 16:05 | Consultation ---
History of Present Illness - Reason for Consult Consult date: 07/25/17 acute renal failure - History of Present Illness This is a 37 year old male who has been admitted since 07/19/17 for a chief complaint of cough, shortness of breath and weakness for 3 weeks prior to coming to the E.R. Patient denies any past medical history. On evaluation patient was found to be Neutropenic and further work-up revealed patient was HIV positive for which Infectious Disease is onboard and patient is being tested for Tuberculosis- AFB and Quantiferon Gold is pending. Patient had abdominal pelvi Ct done with and without contrast. On admission patient's serum creatinine was 1.0 which antonio to 2.0 today. We are being consulted for management of this patient's Acute Renal Failure. Past History Past Surgical History: No surgical history Social history: no significant social history Family history: no significant family history Medications and Allergies Allergies Allergy/AdvReac Type Severity Reaction Status Date / Time No Known Allergies Allergy Verified 07/19/17 14:16 Home Medications Medication Instructions Recorded Confirmed Last Taken Type No Known Home Medications [No 07/19/17 07/19/17 Unknown History Reported Home Medications] Active Meds: Active Medications Acetaminophen (Tylenol) 650 mg PO Q4H PRN PRN Reason: Pain MILD(1-3)/Fever >100.5/OSMAN Last Admin: 07/23/17 23:40 Dose: 650 mg Bisacodyl (Dulcolax) 10 mg AR QDAY PRN PRN Reason: Constipation unrelieved by MOM Enoxaparin Sodium (Lovenox) 40 mg SUB-Q QDAY@1000 LAW Last Admin: 07/25/17 09:51 Dose: 40 mg Fluconazole (Diflucan) 400 mg PO QDAY LAW Stop: 08/01/17 10:59 Last Admin: 07/25/17 09:51 Dose: 400 mg Hydromorphone HCl (Dilaudid) 0.5 mg IV Q3H PRN PRN Reason: Pain , Severe (7-10) Ceftriaxone Sodium 2 gm/ (Sodium Chloride) 20 mls @ 20 mls/10 min IV Q24HR LAW Stop: 07/27/17 10:09 Last Admin: 07/25/17 09:51 Dose: 20 mls/10 min Sodium Bicarbonate 25 meq/ (Sodium Chloride) 1,025 mls @ 125 mls/hr IV DIRECT LAW Levofloxacin (Levaquin) 750 mg PO Q24HR [facility] Stop: 07/26/17 10:59 Last Admin: 07/25/17 09:51 Dose: 750 mg Magnesium Hydroxide (Milk Of Magnesia) 30 ml PO Q4H PRN PRN Reason: Constipation Morphine Sulfate (Morphine) 2 mg IV Q4H PRN PRN Reason: Pain, Moderate (4-6) Ondansetron HCl (Zofran) 4 mg IV Q8H PRN PRN Reason: N/V unrelieved by Reglan Last Admin: 07/23/17 20:47 Dose: 4 mg Oxycodone/Acetaminophen (Percocet 5/325) 1 tab PO Q6H PRN PRN Reason: Pain, Moderate (4-6) Last Admin: 07/23/17 15:14 Dose: 1 tab Pantoprazole Sodium (Protonix) 40 mg PO QDAY [facility] Last Admin: 07/25/17 09:51 Dose: 40 mg Tamsulosin HCl (Flomax) 0.4 mg PO QHS [facility] Last Admin: 07/24/17 22:31 Dose: 0.4 mg Zolpidem Tartrate (Ambien) 5 mg PO QHS PRN PRN Reason: Sleep Last Admin: 07/24/17 22:32 Dose: 5 mg Exam - Vital Signs Vital signs: Vital Signs Temp Pulse Resp BP Pulse Ox 101.9 F H 110 H 16 103/60 96 07/19/17 14:16 07/19/17 14:16 07/19/17 14:16 07/19/17 14:16 07/19/17 14:16 Results - Lab Results 07/25/17 08:49 07/25/17 08:49 Most recent lab results Calcium 7.9 mg/dL (8.4-10.2) L 07/25/17 08:49 Assessment and Plan - Patient Problems (1) Acute renal failure (ARF) Current Visit: Yes Status: Acute Plan to address problem: Renal ultrasound-pending Obtain urine lytes and urine eosinophils Obtain daily weights Continue IV hydration Avoid Nephrotoxic agents Renally dose medications Monitor renal function closely (2) HIV (human immunodeficiency virus infection) Current Visit: Yes Status: Acute Plan to address problem: As per Infectious Disease (3) Thrush Current Visit: Yes Status: Acute Plan to address problem: On Flucanozole as per ID (4) Metabolic acidosis Current Visit: Yes Status: Acute Plan to address problem: On Sodium Bicarbonate drip (5) Hyponatremia Current Visit: Yes Status: Acute Plan to address problem: Obtain urine sodium and osmolality levels Obtain TSH levels Fluid restriction of 1 liter per day
--- NOTE | 2017-07-25 17:28 | Consultation ---
History of Present Illness - Reason for Consult Consult date: 07/25/17 acute renal failure - History of Present Illness This is a 37 year old male who has been admitted since 07/19/17 for a chief complaint of cough, shortness of breath and weakness for 3 weeks prior to coming to the E.R. Patient denies any past medical history. On evaluation patient was found to be Neutropenic and further work-up revealed patient was HIV positive for which Infectious Disease is onboard and patient is being tested for Tuberculosis- AFB and Quantiferon Gold is pending. Patient had abdominal pelvi Ct done with and without contrast. On admission patient's serum creatinine was 1.0 which antonio to 2.0 today. We are being consulted for management of this patient's Acute Renal Failure. Past History Past Surgical History: No surgical history Social history: no significant social history Family history: no significant family history Medications and Allergies Allergies Allergy/AdvReac Type Severity Reaction Status Date / Time No Known Allergies Allergy Verified 07/19/17 14:16 Home Medications Medication Instructions Recorded Confirmed Last Taken Type No Known Home Medications [No 07/19/17 07/19/17 Unknown History Reported Home Medications] Active Meds: Active Medications Acetaminophen (Tylenol) 650 mg PO Q4H PRN PRN Reason: Pain MILD(1-3)/Fever >100.5/OSMAN Last Admin: 07/23/17 23:40 Dose: 650 mg Bisacodyl (Dulcolax) 10 mg GA QDAY PRN PRN Reason: Constipation unrelieved by MOM Enoxaparin Sodium (Lovenox) 40 mg SUB-Q QDAY@1000 LAW Last Admin: 07/25/17 09:51 Dose: 40 mg Fluconazole (Diflucan) 400 mg PO QDAY [facility] Stop: 08/01/17 10:59 Last Admin: 07/25/17 09:51 Dose: 400 mg Hydromorphone HCl (Dilaudid) 0.5 mg IV Q3H PRN PRN Reason: Pain , Severe (7-10) Ceftriaxone Sodium 2 gm/ (Sodium Chloride) 20 mls @ 20 mls/10 min IV Q24HR [facility] Stop: 07/27/17 10:09 Last Admin: 07/25/17 09:51 Dose: 20 mls/10 min Sodium Bicarbonate 25 meq/ (Sodium Chloride) 1,025 mls @ 125 mls/hr IV DIRECT LAW Levofloxacin (Levaquin) 750 mg PO Q24HR [facility] Stop: 07/26/17 10:59 Last Admin: 07/25/17 09:51 Dose: 750 mg Magnesium Hydroxide (Milk Of Magnesia) 30 ml PO Q4H PRN PRN Reason: Constipation Morphine Sulfate (Morphine) 2 mg IV Q4H PRN PRN Reason: Pain, Moderate (4-6) Ondansetron HCl (Zofran) 4 mg IV Q8H PRN PRN Reason: N/V unrelieved by Reglan Last Admin: 07/23/17 20:47 Dose: 4 mg Oxycodone/Acetaminophen (Percocet 5/325) 1 tab PO Q6H PRN PRN Reason: Pain, Moderate (4-6) Last Admin: 07/23/17 15:14 Dose: 1 tab Pantoprazole Sodium (Protonix) 40 mg PO QDAY [facility] Last Admin: 07/25/17 09:51 Dose: 40 mg Tamsulosin HCl (Flomax) 0.4 mg PO QHS [facility] Last Admin: 07/24/17 22:31 Dose: 0.4 mg Zolpidem Tartrate (Ambien) 5 mg PO QHS PRN PRN Reason: Sleep Last Admin: 07/24/17 22:32 Dose: 5 mg Review of Systems Constitutional: fatigue, no weight gain, no fever, no chills, no sweats Ears, nose, mouth and throat: no ear pain, no ear discharge, no tinnitis, no decreased hearing, no nose pain, no nasal congestion, no nasal discharge Cardiovascular: edema, shortness of breath, leg edema, no orthopnea, no palpitations, no rapid/irregular heart beat Respiratory: cough, cough with sputum, shortness of breath, dyspnea on exertion , no hemoptysis Gastrointestinal: no nausea, no vomiting, no diarrhea, no constipation, no change in bowel habits, no hematemesis Genitourinary Male: no hematuria, no flank pain, no discharge, no urinary frequency, no urinary hesitancy Rectal: no incontinence, no bleeding Musculoskeletal: no neck pain, no shooting arm pain, no arm numbness/tingling, no low back pain Integumentary: no rash, no pruritis, no redness, no sores, no wounds Neurological: weakness, no transient paralysis, no paralysis, no parathesias, no numbness, no tingling, no seizures, no syncope Psychiatric: no memory loss, no change in sleep habits, no sleep disturbances, no insomnia, no hypersomnia, no change in appetite, no change in libido, no suicidal ideation Endocrine: no heat intolerance, no polyphagia, no excessive thirst, no polydipsia, no polyuria, no nocturia Exam - Vital Signs Vital signs: Vital Signs Temp Pulse Resp BP Pulse Ox 101.9 F H 110 H 16 103/60 96 07/19/17 14:16 07/19/17 14:16 07/19/17 14:16 07/19/17 14:16 07/19/17 14:16 - General Appearance General appearance: well-developed, appears stated age, fatigue EENT: ATNC, PERRL, hearing intact, vision intact Neck: Present: neck supple, trachea midline Respiratory: Clear to Ascultation Heart: regular, S1S2 Gastrointestinal: Present: normoactive bowel sounds Integumentary: warm and dry Neurologic: alert and oriented x3 Musculoskeletal: Absent: deformities, joint swelling Psychiatric: cooperative Results - Lab Results 07/25/17 08:49 07/25/17 08:49 Most recent lab results Calcium 7.9 mg/dL (8.4-10.2) L 07/25/17 08:49 Assessment and Plan - Patient Problems (1) Acute renal failure (ARF) Current Visit: Yes Status: Acute Plan to address problem: Renal ultrasound-pending Obtain urine lytes and urine eosinophils Obtain daily weights Continue IV hydration Avoid Nephrotoxic agents Renally dose medications Monitor renal function closely (2) HIV (human immunodeficiency virus infection) Current Visit: Yes Status: Acute Plan to address problem: As per Infectious Disease (3) Thrush Current Visit: Yes Status: Acute Plan to address problem: On Flucanozole as per ID (4) Metabolic acidosis Current Visit: Yes Status: Acute Plan to address problem: On Sodium Bicarbonate drip (5) Hyponatremia Current Visit: Yes Status: Acute Plan to address problem: Obtain urine sodium and osmolality levels Obtain TSH levels Fluid restriction of 1 liter per day
--- NOTE | 2017-07-25 19:21 | Ultrasound Report ---
FINAL REPORT PROCEDURE: US RENAL BILAT TECHNIQUE: Real-time sonography in multiple planes of the kidneys, ureters and urinary bladder was performed with image documentation. CPT 24762 HISTORY: corinne COMPARISON: No prior studies are available for comparison. FINDINGS: RIGHT kidney: Normal echotexture. No focal renal mass, calculus, or hydronephrosis. Length: 12.1 cm. LEFT kidney: Normal echotexture. No focal renal mass, calculus, or hydronephrosis. Length: 11.9cm. Bladder: Normal. IMPRESSION: Normal Examination.
[2017-07-25] MEDS: FLOMAX PO SCH (22:47)
[2017-07-26 03:59] LABS: Hematocrit 36.1 % (35.5-45.6); Hemoglobin 12.1 gm/dl (11.8-15.2); Mean Corpuscular HGB Conc 34 % (32-34); Mean Corpuscular Volume 73 fl (84-94); Red Blood Count 4.94 M/mm3 (3.65-5.03); Red Cell Distribution Width 15.9 % (13.2-15.2)
[2017-07-26 04:07] LABS: Mean Corpuscular Hemoglobin 25 pg (28-32); Platelet Count 129 K/mm3 (140-440)
[2017-07-26 04:20] LABS: Calcium 8.5 mg/dL (8.4-10.2)
[2017-07-26] MEDS ORDERED: SODIUM BICARBONATE IV SCH (09:00)
[2017-07-26] MEDS ORDERED: NACL 0.9% IV SCH (09:00)
[2017-07-26] MEDS ORDERED: NACL 0.9% 1000 ML 1,000 ML IV ONE (10:13)
[2017-07-26] MEDS: LEVAQUIN PO SCH (10:51)
[2017-07-26] MEDS: PROTONIX PO SCH (10:52)
[2017-07-26] MEDS: DIFLUCAN PO SCH (10:52)
[2017-07-26] MEDS: LOVENOX SUB-Q SCH (10:52)
[2017-07-26 11:06] LABS: Creatinine,Urine 219.3 mg/dL (0.1-20.0)
--- NOTE | 2017-07-26 11:10 | Progress Note ---
Assessment and Plan Assessment: 1) Sepsis: still tachycardic and hypotensive. Etiology -pneumonia 2) RLL Pneumonia: CXR neg. CT chest + RLL inflitrate. ? influenza ? CAP ?TB ? opportunistic -CRP 2.1 -influenza antigen neg 3) Oral candidiasis - better 4) Weight loss: from HIV / AIDS 5) Newly diagnosed HIV ? unknown CD4/VL. Cryptococcal antigen neg 6) Neutropenia: Better. from HIV ? MAC ? malignancy ?infection? Improving 7) Hyponatremia; worsening 8) Homeless 9) RADHA Plan: -continue airborne isolation -patient is homeless with abnormal CT chest -follow up AFB x 3 and quantiferon TB gold, received -continue fluconazole day 6 of 14 days -continue ceftriaxone day 6 of 7 -binder caser eval for long term placement -noted RDAHA, renall following Thank you Dr Le for your consultation, will follow up with you. Katlyn Arzate NP-C for Dr. Mishel Fry MD Infectious Diseases Specialist [facility] ([facility]) M [phone] O [phone] Subjective Date of service: 07/26/17 Principal diagnosis: leukopenia, fever, thrush Interval history: I have no appetite, no fever Microbiology: Blood cultures: 07/19 in progress Respiratory cultures: influenza negative 07/19 Cryptococcus antigen negative Urine culture: negative Current Antimicrobials: Ceftriaoxne 07/20 Diflucan 07/19 Previous Antimicrobials: Vancomycin Zosyn 07/20 levaquin 07/20 tamiflu07/19 bactrim 07/19 Objective - Exam Narrative Exam: General appearance: Alert in NAD, conversant Eyes: anicteric sclerae, moist conjunctivae; no lid-lag; PERRLA HENT: Atraumatic; oropharynx +marked thrush Neck: Trachea midline; supple, no thyromegaly or lymphadenopathy Lungs: scattered crackles demarcus CV: RRR s1 s2 Abdomen: Soft, non-tender; no masses or hepatosplenomegaly Extremities: No peripheral edema or extremity lymphadenopathy Skin: Normal temperature, turgor and texture; no rash, ulcers or subcutaneous nodules Psych: Appropriate affect, calm and cooperative Neuro: alert and oriented x 3. Moving all extermities Lines: No CVL / PICC - Constitutional Vitals: Vital Signs Temp Pulse Resp BP Pulse Ox 98.6 F 103 H 19 84/53 95 07/26/17 07:21 07/26/17 07:21 07/26/17 07:21 07/26/17 07:21 07/26/17 07:21 Temperature -Last 24 Hours Temperature 98.6 F Temperature 98.4 F - Labs CBC & Chem 7: 07/26/17 03:32 07/26/17 03:32 Labs: Abnormal lab results 07/26/17 07/26/17 07/26/17 Range/Units 03:32 03:32 03:32 WBC 2.0 L (4.5-11.0) K/mm3 MCV 73 L (84-94) fl MCH 25 L (28-32) pg RDW 15.9 H (13.2-15.2) % Plt Count 129 L (140-440) K/mm3 Sodium 124 L (137-145) mmol/L Chloride 88.2 L (98-107) mmol/L Carbon Dioxide 18 L (22-30) mmol/L BUN 30 H (9-20) mg/dL Creatinine 1.7 H (0.8-1.5) mg/dL Glucose 107 H (75-100) mg/dL TSH 5.450 H (0.270-4.200) mlU/mL
[2017-07-26] MEDS: cefTRIAXone 2 GM in NACL 0.9% 20 ML IV SCH (11:20)
--- NOTE | 2017-07-26 12:28 | Progress Note ---
Assessment and Plan - Patient Problems (1) Neutropenia Current Visit: Yes Status: Acute Qualifiers: Neutropenia type: due to infection Qualified Code(s): D70.3 - Neutropenia due to infection Plan to address problem: On airborne precautions, evaluating for TB, additional labs pending Influenza negative On rocephin and diflucan As per ID management (2) Hyponatremia Current Visit: Yes Status: Acute Plan to address problem: Labs reviewed, serum sodium level was 124 today, yesterday's serum sodium level was 122 Questionable SIADH Currently on 0.9% NS + 25 mEq sodium bicarbonate drip at 125 ml/hr (not infusing -awaiting new peripheral IV placement), may need to discontinue IV fluids Urine studies reviewed Maintain fluid restriction of 1 liter per day Start on sodium chloride tablet 1 g orally three times a day Repeat serial sodium levels every 8 hours, adjust renal management and IV fluids if needed Plan discussed with Dr Amezcua (3) Acute renal failure (ARF) Current Visit: Yes Status: Acute Plan to address problem: Renal function reviewed, SCr level decreased to 1.7 today, yesterday's SCr level was 2.0 Renally dose medications S/p renal ultrasound showed no hydronephrosis Continue on 0.9% NS + 25 mEq sodium bicarbonate infusion at 125 ml/hr for now ( currently not infusing, awaiting new peripheral IV) Obtain daily weight Strict intake and output Morales Catheter: No Renal plan discussed with Dr Amezcua Continue supportive therapy (4) HIV (human immunodeficiency virus infection) Current Visit: Yes Status: Acute Plan to address problem: As per ID management (5) Metabolic acidosis Current Visit: Yes Status: Acute Plan to address problem: Currently on 0.9% NS + 25 mEq sodium bicarbonate drip at 125 ml/hr (not infusing -awaiting new peripheral IV placement) (6) Thrush Current Visit: Yes Status: Acute Plan to address problem: On Diflucan As per primary and ID service (7) Pneumonia Current Visit: Yes Status: Acute Plan to address problem: On rocephin ID on board, follow up recs Subjective Date of service: 07/26/17 Principal diagnosis: leukopenia, fever, thrush Interval history: Patient reports being unsteady on his legs when trying to urinate, states he has to urinate sitting down. No family at bedside. Objective - Vital Signs Vital signs: Vital Signs - 12hr 07/26/17 07:21 Temperature 98.6 F Pulse Rate 103 H Respiratory 19 Rate Blood Pressure 84/53 O2 Sat by Pulse 95 Oximetry - General Appearance General appearance: other (awake, alert, no acute distress) EENT: ATNC Neck: no JVD Respiratory: Present: Other (Lung sounds decreased bilaterally, unlabored) Cardiology: regular, S1S2 Gastrointestinal: normoactive bowel sounds, no tenderness Integumentary: warm and dry Neurologic: alert and oriented x3 Musculoskeletal: other (no edema to both lower extremities) Psychiatric: mood/affect appropriate, cooperative - Lab 07/26/17 03:32 07/26/17 03:32 Most recent lab results Calcium 8.5 mg/dL (8.4-10.2) 07/26/17 03:32 Phosphorus 3.60 mg/dL (2.5-4.5) 07/26/17 03:32 Urine Creatinine 219.3 mg/dL (0.1-20.0) H 07/26/17 08:48 Urine Sodium 36 mmol/L 07/26/17 08:48 Urine Total Protein 70 mg/dL (5-11.8) H 07/26/17 08:48
--- NOTE | 2017-07-26 16:50 | Progress Note ---
Assessment and Plan Assessment and plan: Patient is a 37-year-old man originally from [place] with a history of tobacco dependency who presented with fevers, sore throat, weight loss, abdominal pain and shortness of breath * 2v CXR reported as no acute findings * CT abd/pelvis w and w/o: IMPRESSION: There are infiltrates at the right lung base. There are no pleural effusions or pneumothoraces. There are no kidney stones. There is no hydronephrosis per. There is no bowel obstruction, colitis or enteritis. The appendix is normal.. There is no ascites or free air, abscess or adenopathy.. There is a ventral hernia containing fat only. * CT chest with contrast: IMPRESSION: The heart size is normal. There is no mediastinal or hilar lymphadenopathy. The lungs are well-expanded. 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 There are infiltrates at the right lung base. There is no pulmonary nodule or mass.. There is no pleural effusion or pneumothorax.. 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 Will discuss with ID about PCP prophylaxis. Not been ruled out for TB Oral thrush candidiasis: Treat with Diflucan Neutropenia was likely related to infection: Treated infection Acute kidney injury- Possible secondary to visible nephropathy. Patient received a contrast study recently also. 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 Hyponatremia: Persist possible SIADH, Nephrology following. Severe malnutrition: consult Umbrella Supervisor, encourage po intake Urinary retention; Maybe secondary to principal disease. Continue on flomax, urology eval outpatient of symptoms continue GERD: add ppi DVT prophylaxis: Subcutaneous Lovenox full code Plan discussed with patient. Continue isolation precaution History Interval history: Patient seen and examined in no acute distress this morning. No new complaints. Hospitalist Physical - Physical exam Narrative exam: VITAL SIGNS: Reviewed. GENERAL: The patient appeared malnourished with muscle wasting. Vital signs as documented. HEAD: No signs of head trauma. EYES: Pupils are equal. Extraocular motions intact. EARS: Hearing grossly intact. MOUTH: Oral thrush NECK: No adenopathy, no JVD. CHEST: Chest with diminished breath sounds bilaterally. No wheezes, rales, or rhonchi. CARDIAC: Regular rate and rhythm. S1 and S2, without murmurs, gallops, or rubs. VASCULAR: No Edema. Peripheral pulses normal and equal in all extremities. ABDOMEN: Soft, without detectable tenderness. No sign of distention. No rebound or guarding, and no masses palpated. Bowel Sounds normal. MUSCULOSKELETAL: Good range of motion of all major joints. Extremities without clubbing, cyanosis or edema. NEUROLOGIC EXAM: Alert and oriented x 3. No focal sensory or strength deficits. Speech normal. Follows commands. PSYCHIATRIC: Mood normal. SKIN: Some skin deformities and discoloration.. - Constitutional Vitals: Temp Pulse Resp BP Pulse Ox 97.6 F 100 H 16 100/80 96 07/26/17 13:47 07/26/17 13:47 07/26/17 13:47 07/26/17 13:47 07/26/17 13:47 General appearance: Present: no acute distress, cachectic Results - Labs CBC & Chem 7: 07/26/17 03:32 07/26/17 03:32 Labs: Laboratory Last Values WBC 2.0 K/mm3 (4.5-11.0) L 07/26/17 03:32 RBC 4.94 M/mm3 (3.65-5.03) 07/26/17 03:32 Hgb 12.1 gm/dl (11.8-15.2) 07/26/17 03:32 Hct 36.1 % (35.5-45.6) 07/26/17 03:32 MCV 73 fl (84-94) L 07/26/17 03:32 MCH 25 pg (28-32) L 07/26/17 03:32 MCHC 34 % (32-34) 07/26/17 03:32 RDW 15.9 % (13.2-15.2) H 07/26/17 03:32 Plt Count 129 K/mm3 (140-440) L 07/26/17 03:32 Add Manual Diff Complete 07/20/17 05:22 Total Counted 100 07/20/17 05:22 Seg Neuts % (Manual) 82.0 % (40.0-70.0) H 07/20/17 05:22 Band Neutrophils % 7.0 % 07/20/17 05:22 Lymphocytes % (Manual) 8.0 % (13.4-35.0) L 07/20/17 05:22 Reactive Lymphs % (Man) 0 % 07/20/17 05:22 Monocytes % (Manual) 3.0 % (0.0-7.3) 07/20/17 05:22 Eosinophils % (Manual) 0 % (0.0-4.3) 07/20/17 05:22 Basophils % (Manual) 0 % (0.0-1.8) 07/20/17 05:22 Metamyelocytes % 0 % 07/20/17 05:22 Myelocytes % 0 % 07/20/17 05:22 Promyelocytes % 0 % 07/20/17 05:22 Blast Cells % 0 % 07/20/17 05:22 Nucleated RBC % Not Reportable 07/20/17 05:22 Seg Neutrophils # Man 1.3 K/mm3 (1.8-7.7) L 07/20/17 05:22 Band Neutrophils # 0.1 K/mm3 07/20/17 05:22 Abs Lymphs (Manual) 226 cells/uL (850-3900) L 07/19/17 21:20 Lymphocytes # (Manual) 0.1 K/mm3 (1.2-5.4) L 07/20/17 05:22 Abs React Lymphs (Man) 0.0 K/mm3 07/20/17 05:22 Monocytes # (Manual) 0.0 K/mm3 (0.0-0.8) 07/20/17 05:22 Eosinophils # (Manual) 0.0 K/mm3 (0.0-0.4) 07/20/17 05:22 Basophils # (Manual) 0.0 K/mm3 (0.0-0.1) 07/20/17 05:22 Metamyelocytes # 0.0 K/mm3 07/20/17 05:22 Myelocytes # 0.0 K/mm3 07/20/17 05:22 Promyelocytes # 0.0 K/mm3 07/20/17 05:22 Blast Cells # 0.0 K/mm3 07/20/17 05:22 WBC Morphology Not Reportable 07/20/17 05:22 Hypersegmented Neuts Not Reportable 07/20/17 05:22 Hyposegmented Neuts Not Reportable 07/20/17 05:22 Hypogranular Neuts Not Reportable 07/20/17 05:22 Smudge Cells Not Reportable 07/20/17 05:22 Toxic Granulation Not Reportable 07/20/17 05:22 Toxic Vacuolation Not Reportable 07/20/17 05:22 Dohle Bodies Not Reportable 07/20/17 05:22 Pelger-Huet Anomaly Not Reportable 07/20/17 05:22 Steffen Rods Not Reportable 07/20/17 05:22 Platelet Estimate Not Reportable 07/20/17 05:22 Clumped Platelets Not Reportable 07/20/17 05:22 Plt Clumps, EDTA Not Reportable 07/20/17 05:22 Large Platelets Not Reportable 07/20/17 05:22 Giant Platelets Not Reportable 07/20/17 05:22 Platelet Satelliting Not Reportable 07/20/17 05:22 Plt Morphology Comment Not Reportable 07/20/17 05:22 RBC Morphology Not Reportable 07/20/17 05:22 Dimorphic RBCs Not Reportable 07/20/17 05:22 Polychromasia Not Reportable 07/20/17 05:22 Hypochromasia 1+ 07/20/17 05:22 Poikilocytosis Not Reportable 07/20/17 05:22 Anisocytosis 1+ 07/20/17 05:22 Microcytosis Not Reportable 07/20/17 05:22 Macrocytosis Not Reportable 07/20/17 05:22 Spherocytes Not Reportable 07/20/17 05:22 Pappenheimer Bodies Not Reportable 07/20/17 05:22 Sickle Cells Not Reportable 07/20/17 05:22 Target Cells Not Reportable 07/20/17 05:22 Tear Drop Cells Not Reportable 07/20/17 05:22 Ovalocytes 2+ 07/20/17 05:22 Helmet Cells Not Reportable 07/20/17 05:22 [place] Bodies Not Reportable 07/20/17 05:22 [place] Rings Not Reportable 07/20/17 05:22 [place] Cells Not Reportable 07/20/17 05:22 Bite Cells Not Reportable 07/20/17 05:22 Crenated Cell Not Reportable 07/20/17 05:22 Elliptocytes Not Reportable 07/20/17 05:22 Acanthocytes (Spur) Not Reportable 07/20/17 05:22 Rouleaux Not Reportable 07/20/17 05:22 Hemoglobin C Crystals Not Reportable 07/20/17 05:22 Schistocytes Not Reportable 07/20/17 05:22 Malaria parasites Not Reportable 07/20/17 05:22 Ezekiel Bodies Not Reportable 07/20/17 05:22 Hem Pathologist Commnt No 07/20/17 05:22 PT 12.7 Sec. (12.2-14.9) 07/19/17 15:39 INR 0.91 (0.87-1.13) 07/19/17 15:39 APTT 31.2 Sec. (24.2-36.6) 07/19/17 15:39 Sodium 124 mmol/L (137-145) L 07/26/17 03:32 Potassium 4.6 mmol/L (3.6-5.0) 07/26/17 03:32 Chloride 88.2 mmol/L (98-107) L 07/26/17 03:32 Carbon Dioxide 18 mmol/L (22-30) L 07/26/17 03:32 Anion Gap 22 mmol/L 07/26/17 03:32 BUN 30 mg/dL (9-20) H 07/26/17 03:32 Creatinine 1.7 mg/dL (0.8-1.5) H 07/26/17 03:32 Estimated GFR 55 ml/min 07/26/17 03:32 BUN/Creatinine Ratio 18 % 07/26/17 03:32 Glucose 107 mg/dL (75-100) H 07/26/17 03:32 Hemoglobin A1c 6.0 % (4-6) 07/20/17 05:22 Osmolality 285 Mosm/kg 07/26/17 03:32 Lactic Acid 0.50 mmol/L (0.7-2.0) L 07/19/17 21:20 Calcium 8.5 mg/dL (8.4-10.2) 07/26/17 03:32 Phosphorus 3.60 mg/dL (2.5-4.5) 07/26/17 03:32 Total Bilirubin 0.40 mg/dL (0.1-1.2) 07/20/17 05:22 Direct Bilirubin 0.2 mg/dL (0-0.2) 07/19/17 15:43 Indirect Bilirubin 0.5 mg/dL 07/19/17 15:43 AST 44 units/L (5-40) H 07/20/17 05:22 ALT 16 units/L (7-56) 07/20/17 05:22 Alkaline Phosphatase 51 units/L (35-129) 07/20/17 05:22 C-Reactive Protein 2.10 mg/dL (0.00-1.30) H 07/19/17 21:20 Total Protein 7.0 g/dL (6.3-8.2) 07/20/17 05:22 Albumin 2.8 g/dL (3.9-5) L 07/20/17 05:22 Albumin/Globulin Ratio 0.7 % 07/20/17 05:22 TSH 5.450 mlU/mL (0.270-4.200) H 07/26/17 03:32 Urine Color Yellow (Yellow) 07/20/17 04:00 Urine Turbidity Clear (Clear) 07/20/17 04:00 Urine pH 6.0 (5.0-7.0) 07/20/17 04:00 Ur Specific [place] 1.030 (1.003-1.030) 07/20/17 04:00 Urine Protein <15 mg/dl mg/dL (Negative) 07/20/17 04:00 Urine Glucose (UA) Neg mg/dL (Negative) 07/20/17 04:00 Urine Ketones Neg mg/dL (Negative) 07/20/17 04:00 Urine Blood Neg (Negative) 07/20/17 04:00 Urine Nitrite Neg (Negative) 07/20/17 04:00 Urine Bilirubin Neg (Negative) 07/20/17 04:00 Urine Urobilinogen 2.0 mg/dL (<2.0) 07/20/17 04:00 Ur Leukocyte Esterase Neg (Negative) 07/20/17 04:00 Urine WBC (Auto) < 1.0 /HPF (0.0-6.0) 07/20/17 04:00 Urine RBC (Auto) 1.0 /HPF (0.0-6.0) 07/20/17 04:00 Urine Eosinophils None seen (None Seen) 07/26/17 08:48 Urine Osmolality 605 Mosm/kg 07/26/17 08:48 Urine Creatinine 219.3 mg/dL (0.1-20.0) H 07/26/17 08:48 Urine Sodium 36 mmol/L 07/26/17 08:48 Urine Total Protein 70 mg/dL (5-11.8) H 07/26/17 08:48 Lymph Enumerat CD4/CD8 0.02 (0.86-5.00) L 07/19/17 21:20 % CD3 Cells 73 % (57-85) 07/19/17 21:20 Absolute CD3 Count 164 cells/uL (840-3060) L 07/19/17 21:20 % CD4 Cells 1 % (30-61) L 07/19/17 21:20 Absolute CD4 Count 2 cells/uL (490-1740) L 07/19/17 21:20 % CD8 Cells 66 % (12-42) H 07/19/17 21:20 Absolute CD8 Count 135 cells/uL (180-1170) L 07/19/17 21:20 % CD19 Cells 13 % (6-29) 07/19/17 21:20 Absolute CD19 Count 32 cells/uL (110-660) L 07/19/17 21:20 Hepatitis A IgM Ab Non-reactive (NonReactive) 07/19/17 21:20 Hep Bs Antigen Non-reactive (Negative) 07/19/17 21:20 Hep B Core IgM Ab Non-reactive (NonReactive) 07/19/17 21:20 Hepatitis C Antibody Non-reactive (NonReactive) 07/19/17 21:20 HIV-1 RNA PCR copies/ml 214101 copies/mL (<20) H 07/19/17 21:20 HIV-1 RNA (PCR) log 5.52 Log cps/mL (<1.30) H 07/19/17 21:20 HIV 1&2 Antibody Rapid Reactive (Non React) 07/19/17 21:20 HIV P24 Antigen Non react (Non React) 07/19/17 21:20
[2017-07-26] MEDS: TYLENOL PO PRN (17:06)
[2017-07-26] MEDS: SODIUM CHLORIDE PO SCH ×2 (17:06→23:23)
[2017-07-26] MEDS: FLOMAX PO SCH (21:19)
[2017-07-26] MEDS: MAGIC MOUTHWASH PO SCH (21:19)
--- NOTE | 2017-07-27 08:24 | Progress Note ---
Assessment and Plan Assessment and plan: Patient is a 37-year-old man originally from [place] with a history of tobacco dependency who presented with fevers, sore throat, weight loss, abdominal pain and shortness of breath * 2v CXR reported as no acute findings * CT abd/pelvis w and w/o: IMPRESSION: There are infiltrates at the right lung base. There are no pleural effusions or pneumothoraces. There are no kidney stones. There is no hydronephrosis per. There is no bowel obstruction, colitis or enteritis. The appendix is normal.. There is no ascites or free air, abscess or adenopathy.. There is a ventral hernia containing fat only. * CT chest with contrast: IMPRESSION: The heart size is normal. There is no mediastinal or hilar lymphadenopathy. The lungs are well-expanded. 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 There are infiltrates at the right lung base. There is no pulmonary nodule or mass.. There is no pleural effusion or pneumothorax.. SEPSIS PNA: Infectious Disease is following, ivf and abx, follow cultures Doubt Tb. will obtain Hematology consult. Bone marrow biopsy. 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 Will discuss with ID about PCP prophylaxis. Not been ruled out for TB Oral thrush candidiasis: Treat with Diflucan Neutropenia was likely related to infection: Treated infection Acute kidney injury- Possible secondary to visible nephropathy. Patient received a contrast study recently also. 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 Hyponatremia: Persist possible SIADH, Nephrology following. Severe malnutrition: consult Scalping Machine Operator, encourage po intake Urinary retention; Maybe secondary to principal disease. Continue on flomax, urology eval outpatient of symptoms continue GERD: add PPI DVT prophylaxis: Subcutaneous Lovenox full code Plan discussed with patient. Continue isolation precaution History Interval history: Patient seen and examined in no acute distress this morning. GENERALIZED WEAKNESS AT THE BONES. Hospitalist Physical - Physical exam Narrative exam: VITAL SIGNS: Reviewed. GENERAL: The patient appeared malnourished with muscle wasting. Vital signs as documented. HEAD: No signs of head trauma. EYES: Pupils are equal. Extraocular motions intact. EARS: Hearing grossly intact. MOUTH: Oral thrush NECK: No adenopathy, no JVD. CHEST: Chest with diminished breath sounds bilaterally. No wheezes, rales, or rhonchi. CARDIAC: Regular rate and rhythm. S1 and S2, without murmurs, gallops, or rubs. VASCULAR: No Edema. Peripheral pulses normal and equal in all extremities. ABDOMEN: Soft, without detectable tenderness. No sign of distention. No rebound or guarding, and no masses palpated. Bowel Sounds normal. MUSCULOSKELETAL: Good range of motion of all major joints. Extremities without clubbing, cyanosis or edema. NEUROLOGIC EXAM: Alert and oriented x 3. No focal sensory or strength deficits. Speech normal. Follows commands. PSYCHIATRIC: Mood normal. SKIN: Some skin deformities and discoloration. - Constitutional Vitals: Temp Pulse Resp BP Pulse Ox 98.0 F 96 H 16 105/65 94 07/26/17 19:41 07/26/17 19:41 07/26/17 19:41 07/26/17 19:41 07/26/17 19:41 General appearance: Present: no acute distress, cachectic Results - Labs CBC & Chem 7: 07/27/17 10:02 07/27/17 10:48 Labs: Laboratory Last Values WBC 2.0 K/mm3 (4.5-11.0) L 07/26/17 03:32 RBC 4.94 M/mm3 (3.65-5.03) 07/26/17 03:32 Hgb 12.1 gm/dl (11.8-15.2) 07/26/17 03:32 Hct 36.1 % (35.5-45.6) 07/26/17 03:32 MCV 73 fl (84-94) L 07/26/17 03:32 MCH 25 pg (28-32) L 07/26/17 03:32 MCHC 34 % (32-34) 07/26/17 03:32 RDW 15.9 % (13.2-15.2) H 07/26/17 03:32 Plt Count 129 K/mm3 (140-440) L 07/26/17 03:32 Add Manual Diff Complete 07/20/17 05:22 Total Counted 100 07/20/17 05:22 Seg Neuts % (Manual) 82.0 % (40.0-70.0) H 07/20/17 05:22 Band Neutrophils % 7.0 % 07/20/17 05:22 Lymphocytes % (Manual) 8.0 % (13.4-35.0) L 07/20/17 05:22 Reactive Lymphs % (Man) 0 % 07/20/17 05:22 Monocytes % (Manual) 3.0 % (0.0-7.3) 07/20/17 05:22 Eosinophils % (Manual) 0 % (0.0-4.3) 07/20/17 05:22 Basophils % (Manual) 0 % (0.0-1.8) 07/20/17 05:22 Metamyelocytes % 0 % 07/20/17 05:22 Myelocytes % 0 % 07/20/17 05:22 Promyelocytes % 0 % 07/20/17 05:22 Blast Cells % 0 % 07/20/17 05:22 Nucleated RBC % Not Reportable 07/20/17 05:22 Seg Neutrophils # Man 1.3 K/mm3 (1.8-7.7) L 07/20/17 05:22 Band Neutrophils # 0.1 K/mm3 07/20/17 05:22 Abs Lymphs (Manual) 226 cells/uL (850-3900) L 07/19/17 21:20 Lymphocytes # (Manual) 0.1 K/mm3 (1.2-5.4) L 07/20/17 05:22 Abs React Lymphs (Man) 0.0 K/mm3 07/20/17 05:22 Monocytes # (Manual) 0.0 K/mm3 (0.0-0.8) 07/20/17 05:22 Eosinophils # (Manual) 0.0 K/mm3 (0.0-0.4) 07/20/17 05:22 Basophils # (Manual) 0.0 K/mm3 (0.0-0.1) 07/20/17 05:22 Metamyelocytes # 0.0 K/mm3 07/20/17 05:22 Myelocytes # 0.0 K/mm3 07/20/17 05:22 Promyelocytes # 0.0 K/mm3 07/20/17 05:22 Blast Cells # 0.0 K/mm3 07/20/17 05:22 WBC Morphology Not Reportable 07/20/17 05:22 Hypersegmented Neuts Not Reportable 07/20/17 05:22 Hyposegmented Neuts Not Reportable 07/20/17 05:22 Hypogranular Neuts Not Reportable 07/20/17 05:22 Smudge Cells Not Reportable 07/20/17 05:22 Toxic Granulation Not Reportable 07/20/17 05:22 Toxic Vacuolation Not Reportable 07/20/17 05:22 Dohle Bodies Not Reportable 07/20/17 05:22 Pelger-Huet Anomaly Not Reportable 07/20/17 05:22 Steffen Rods Not Reportable 07/20/17 05:22 Platelet Estimate Not Reportable 07/20/17 05:22 Clumped Platelets Not Reportable 07/20/17 05:22 Plt Clumps, EDTA Not Reportable 07/20/17 05:22 Large Platelets Not Reportable 07/20/17 05:22 Giant Platelets Not Reportable 07/20/17 05:22 Platelet Satelliting Not Reportable 07/20/17 05:22 Plt Morphology Comment Not Reportable 07/20/17 05:22 RBC Morphology Not Reportable 07/20/17 05:22 Dimorphic RBCs Not Reportable 07/20/17 05:22 Polychromasia Not Reportable 07/20/17 05:22 Hypochromasia 1+ 07/20/17 05:22 Poikilocytosis Not Reportable 07/20/17 05:22 Anisocytosis 1+ 07/20/17 05:22 Microcytosis Not Reportable 07/20/17 05:22 Macrocytosis Not Reportable 07/20/17 05:22 Spherocytes Not Reportable 07/20/17 05:22 Pappenheimer Bodies Not Reportable 07/20/17 05:22 Sickle Cells Not Reportable 07/20/17 05:22 Target Cells Not Reportable 07/20/17 05:22 Tear Drop Cells Not Reportable 07/20/17 05:22 Ovalocytes 2+ 07/20/17 05:22 Helmet Cells Not Reportable 07/20/17 05:22 [place] Bodies Not Reportable 07/20/17 05:22 [place] Rings Not Reportable 07/20/17 05:22 [place] Cells Not Reportable 07/20/17 05:22 Bite Cells Not Reportable 07/20/17 05:22 Crenated Cell Not Reportable 07/20/17 05:22 Elliptocytes Not Reportable 07/20/17 05:22 Acanthocytes (Spur) Not Reportable 07/20/17 05:22 Rouleaux Not Reportable 07/20/17 05:22 Hemoglobin C Crystals Not Reportable 07/20/17 05:22 Schistocytes Not Reportable 07/20/17 05:22 Malaria parasites Not Reportable 07/20/17 05:22 Ezekiel Bodies Not Reportable 07/20/17 05:22 Hem Pathologist Commnt No 07/20/17 05:22 PT 12.7 Sec. (12.2-14.9) 07/19/17 15:39 INR 0.91 (0.87-1.13) 07/19/17 15:39 APTT 31.2 Sec. (24.2-36.6) 07/19/17 15:39 Sodium 129 mmol/L (137-145) L 07/26/17 23:38 Potassium 4.6 mmol/L (3.6-5.0) 07/26/17 03:32 Chloride 88.2 mmol/L (98-107) L 07/26/17 03:32 Carbon Dioxide 18 mmol/L (22-30) L 07/26/17 03:32 Anion Gap 22 mmol/L 07/26/17 03:32 BUN 30 mg/dL (9-20) H 07/26/17 03:32 Creatinine 1.7 mg/dL (0.8-1.5) H 07/26/17 03:32 Estimated GFR 55 ml/min 07/26/17 03:32 BUN/Creatinine Ratio 18 % 07/26/17 03:32 Glucose 107 mg/dL (75-100) H 07/26/17 03:32 Hemoglobin A1c 6.0 % (4-6) 07/20/17 05:22 Osmolality 285 Mosm/kg 07/26/17 03:32 Lactic Acid 0.50 mmol/L (0.7-2.0) L 07/19/17 21:20 Calcium 8.5 mg/dL (8.4-10.2) 07/26/17 03:32 Phosphorus 3.60 mg/dL (2.5-4.5) 07/26/17 03:32 Total Bilirubin 0.40 mg/dL (0.1-1.2) 07/20/17 05:22 Direct Bilirubin 0.2 mg/dL (0-0.2) 07/19/17 15:43 Indirect Bilirubin 0.5 mg/dL 07/19/17 15:43 AST 44 units/L (5-40) H 07/20/17 05:22 ALT 16 units/L (7-56) 07/20/17 05:22 Alkaline Phosphatase 51 units/L (35-129) 07/20/17 05:22 C-Reactive Protein 2.10 mg/dL (0.00-1.30) H 07/19/17 21:20 Total Protein 7.0 g/dL (6.3-8.2) 07/20/17 05:22 Albumin 2.8 g/dL (3.9-5) L 07/20/17 05:22 Albumin/Globulin Ratio 0.7 % 07/20/17 05:22 TSH 5.450 mlU/mL (0.270-4.200) H 07/26/17 03:32 Urine Color Yellow (Yellow) 07/20/17 04:00 Urine Turbidity Clear (Clear) 07/20/17 04:00 Urine pH 6.0 (5.0-7.0) 07/20/17 04:00 Ur Specific [place] 1.030 (1.003-1.030) 07/20/17 04:00 Urine Protein <15 mg/dl mg/dL (Negative) 07/20/17 04:00 Urine Glucose (UA) Neg mg/dL (Negative) 07/20/17 04:00 Urine Ketones Neg mg/dL (Negative) 07/20/17 04:00 Urine Blood Neg (Negative) 07/20/17 04:00 Urine Nitrite Neg (Negative) 07/20/17 04:00 Urine Bilirubin Neg (Negative) 07/20/17 04:00 Urine Urobilinogen 2.0 mg/dL (<2.0) 07/20/17 04:00 Ur Leukocyte Esterase Neg (Negative) 07/20/17 04:00 Urine WBC (Auto) < 1.0 /HPF (0.0-6.0) 07/20/17 04:00 Urine RBC (Auto) 1.0 /HPF (0.0-6.0) 07/20/17 04:00 Urine Eosinophils None seen (None Seen) 07/26/17 08:48 Urine Osmolality 605 Mosm/kg 07/26/17 08:48 Urine Creatinine 219.3 mg/dL (0.1-20.0) H 07/26/17 08:48 Urine Sodium 36 mmol/L 07/26/17 08:48 Urine Total Protein 70 mg/dL (5-11.8) H 07/26/17 08:48 Lymph Enumerat CD4/CD8 0.02 (0.86-5.00) L 07/19/17 21:20 % CD3 Cells 73 % (57-85) 07/19/17 21:20 Absolute CD3 Count 164 cells/uL (840-3060) L 07/19/17 21:20 % CD4 Cells 1 % (30-61) L 07/19/17 21:20 Absolute CD4 Count 2 cells/uL (490-1740) L 07/19/17 21:20 % CD8 Cells 66 % (12-42) H 07/19/17 21:20 Absolute CD8 Count 135 cells/uL (180-1170) L 07/19/17 21:20 % CD19 Cells 13 % (6-29) 07/19/17 21:20 Absolute CD19 Count 32 cells/uL (110-660) L 07/19/17 21:20 Hepatitis A IgM Ab Non-reactive (NonReactive) 07/19/17 21:20 Hep Bs Antigen Non-reactive (Negative) 07/19/17 21:20 Hep B Core IgM Ab Non-reactive (NonReactive) 07/19/17 21:20 Hepatitis C Antibody Non-reactive (NonReactive) 07/19/17 21:20 HIV-1 RNA PCR copies/ml [id number] copies/mL (<20) H 07/19/17 21:20 HIV-1 RNA (PCR) log 5.52 Log cps/mL (<1.30) H 07/19/17 21:20 HIV 1&2 Antibody Rapid Reactive (Non React) 07/19/17 21:20 HIV P24 Antigen Non react (Non React) 07/19/17 21:20
[2017-07-27 08:28] LABS: Hematocrit 37.8 % (35.5-45.6); Hemoglobin 12.3 gm/dl (11.8-15.2); Mean Corpuscular HGB Conc 33 % (32-34); Mean Corpuscular Volume 75 fl (84-94); Red Blood Count 5.07 M/mm3 (3.65-5.03); Red Cell Distribution Width 16.2 % (13.2-15.2)
[2017-07-27 08:33] LABS: Mean Corpuscular Hemoglobin 24 pg (28-32)
[2017-07-27 08:37] LABS: BUN/Creatinine Ratio 15; Blood Urea Nitrogen 19 mg/dL (9-20); Calcium 7.9 mg/dL (8.4-10.2); Hemolysis Index 293
--- NOTE | 2017-07-27 09:38 | Gastroenterology Consultation ---
History of Present Illness - Reason for Consult Consult date: 07/27/17 odynopahgia Requesting physician: COOKIE LANGSTON - History of Present Illness Patient is a 37 y/o male originally from [place] with a PMH of HTN, DM, and tobacco dependency who presented to ED with c/o fever, sore throat, wt loss, abd pain, and SOB. He is currently on isolation precautions being treated for sepsis PNA, HIV with presumably AIDS, oral thrush candidiasis, neutropenia, and severe malnutrition. GI has been consulted for odynophagia. This morning pt was resting in bed w/o acute distress. He reports eating cereal for breakfast w/o odynophagia or dysphagia. Sore throat is improved with Diflucan. Currently w/o GI complaints such as abd pain, N/V, diarrhea, constipation, or signs of bleeding. Past History Past Medical History: diabetes, hypertension Past Surgical History: No surgical history Social history: smoking, other (homeless) Family history: hypertension Medications and Allergies Allergies Allergy/AdvReac Type Severity Reaction Status Date / Time No Known Allergies Allergy Verified 07/19/17 14:16 Home Medications Medication Instructions Recorded Confirmed Last Taken Type No Known Home Medications [No 07/19/17 07/19/17 Unknown History Reported Home Medications] Active Meds: Active Medications Acetaminophen (Tylenol) 650 mg PO Q4H PRN PRN Reason: Pain MILD(1-3)/Fever >100.5/OSMAN Last Admin: 07/26/17 17:06 Dose: 650 mg Bisacodyl (Dulcolax) 10 mg [place] QDAY PRN PRN Reason: Constipation unrelieved by MOM Enoxaparin Sodium (Lovenox) 40 mg SUB-Q QDAY@1000 LAW Last Admin: 07/26/17 10:52 Dose: 40 mg Fluconazole (Diflucan) 400 mg PO QDAY LAW Stop: 08/01/17 10:59 Last Admin: 07/26/17 10:52 Dose: 400 mg Hydromorphone HCl (Dilaudid) 0.5 mg IV Q3H PRN PRN Reason: Pain , Severe (7-10) Ceftriaxone Sodium 2 gm/ (Sodium Chloride) 20 mls @ 20 mls/10 min IV Q24HR LAW Stop: 07/27/17 10:09 Last Admin: 07/26/17 11:20 Dose: 20 mls/10 min Sodium Bicarbonate 25 meq/ (Sodium Chloride) 1,025 mls @ 125 mls/hr IV DIRECT [facility] Last Admin: 07/26/17 09:19 Dose: 125 mls/hr Lidocaine HCl (Magic Mouthwash) 15 ml PO TID [facility] Last Admin: 07/26/17 21:19 Dose: 15 ml Magnesium Hydroxide (Milk Of Magnesia) 30 ml PO Q4H PRN PRN Reason: Constipation Morphine Sulfate (Morphine) 2 mg IV Q4H PRN PRN Reason: Pain, Moderate (4-6) Ondansetron HCl (Zofran) 4 mg IV Q8H PRN PRN Reason: N/V unrelieved by Reglan Last Admin: 07/23/17 20:47 Dose: 4 mg Oxycodone/Acetaminophen (Percocet 5/325) 1 tab PO Q6H PRN PRN Reason: Pain, Moderate (4-6) Last Admin: 07/23/17 15:14 Dose: 1 tab Pantoprazole Sodium (Protonix) 40 mg PO QDAY [facility] Last Admin: 07/26/17 10:52 Dose: 40 mg Sodium Chloride (Sodium Chloride) 1 gm PO TID [facility] Last Admin: 07/26/17 23:23 Dose: 1 gm Tamsulosin HCl (Flomax) 0.4 mg PO QHS [facility] Last Admin: 07/26/17 21:19 Dose: 0.4 mg Zolpidem Tartrate (Ambien) 5 mg PO QHS PRN PRN Reason: Sleep Last Admin: 07/24/17 22:32 Dose: 5 mg Review of Systems - Review of Systems All systems: negative Ears, Nose, Throat: other (sore throat-improving) Gastrointestinal: other (no dysphagia or odynophagia), no abdominal pain, no nausea, no vomiting Exam - Constitutional Vital Signs: Temp Pulse Resp BP Pulse Ox 98.1 F 40 L 20 99/61 97 07/27/17 08:16 07/27/17 08:16 07/27/17 08:16 07/27/17 08:16 07/27/17 08:16 General appearance: no acute distress, other (thin appearing) - Respiratory Respiratory: bilateral: CTA (anterior) - Cardiovascular Rhythm: regular Heart Sounds: Present: S1 & S2 - Gastrointestinal General gastrointestinal: Present: soft, non-tender, non-distended, normal bowel sounds - Neurologic Neurological: alert and oriented x3 - Labs CBC & Chem 7: 07/27/17 08:06 07/27/17 08:06 Lab Results: Laboratory Results - last 24 hr 07/26/17 07/26/17 07/26/17 08:48 08:48 23:38 WBC RBC Hgb Hct MCV MCH MCHC RDW Sodium 129 L Potassium Chloride Carbon Dioxide Anion Gap BUN Creatinine Estimated GFR BUN/Creatinine Ratio Glucose Calcium Urine Eosinophils None seen Urine Osmolality 605 Urine Creatinine 219.3 H Urine Sodium 36 Urine Total Protein 70 H 07/27/17 07/27/17 07/27/17 08:06 08:06 08:06 WBC 1.1 L* RBC 5.07 H Hgb 12.3 Hct 37.8 MCV 75 L MCH 24 L MCHC 33 RDW 16.2 H Sodium 127 L 126 L Potassium 6.2 H* D Chloride 92.0 L Carbon Dioxide 19 L Anion Gap 21 BUN 19 Creatinine 1.3 Estimated GFR > 60 BUN/Creatinine Ratio 15 Glucose 98 Calcium 7.9 L Urine Eosinophils Urine Osmolality Urine Creatinine Urine Sodium Urine Total Protein Assessment and Plan 1.odynophagia -etiology- most likely 2/2 esophageal candidiasis -symptoms now improved with pt tolerating diet -currently w/o GI complaints -no recommendations for an EGD at this time -continue PPI and Diflucan -continue supportive care -will sign off, please call if needed
[2017-07-27 10:11] LABS: Platelet Count 106 K/mm3 (140-440)
[2017-07-27 10:19] LABS: Hemoglobin 12.1 gm/dl (11.8-15.2); Mean Corpuscular HGB Conc 33 % (32-34); Mean Corpuscular Volume 74 fl (84-94); Red Blood Count 4.98 M/mm3 (3.65-5.03); Red Cell Distribution Width 16.1 % (13.2-15.2)
[2017-07-27 10:27] LABS: Mean Corpuscular Hemoglobin 24 pg (28-32)
[2017-07-27 10:28] LABS: Platelet Count 98 K/mm3 (140-440)
[2017-07-27] MEDS ORDERED: LASIX IV NR (11:00)
[2017-07-27] MEDS ORDERED: D50W (25GM) Vial IV NR (11:00)
[2017-07-27 11:11] LABS: BUN/Creatinine Ratio 16; Blood Urea Nitrogen 19 mg/dL (9-20); Calcium 7.9 mg/dL (8.4-10.2); Hemolysis Index 7
--- NOTE | 2017-07-27 11:11 | Progress Note ---
Assessment and Plan Assessment: 1) Sepsis: still fever, tachycardic and hypotensive. Etiology -pneumonia 2) RLL Pneumonia: CXR neg. CT chest + RLL inflitrate. ? influenza ? CAP ?TB ? opportunistic -CRP 2.1 -influenza antigen neg - AFB x 3 negative 3) Oral candidiasis - better 4) Weight loss: from HIV / AIDS 5) Newly diagnosed HIV ? unknown CD4/VL. Cryptococcal antigen neg 6) Neutropenia/thrombocytopenia: worsening. from HIV ? MAC ? malignancy ? infection? Improving 7) Hyponatremia; better 8) Homeless 9) RADHA - better -Renal US negative Plan: -continue airborne isolation -patient is homeless with abnormal CT chest -follow up quantiferon TB gold, received -continue fluconazole po day 7 of 14 days -stop ceftriaxone -dependency case manager eval for retirement placement -noted RADHA, renall following -Still fever and worsening cytopenias - unclear source - blood cx neg, abd CT no lymphadenopathies ? still could be disseminated MAC. AFB-blood cx were sent but take 4-6 weeks to finalize. At this point in view of lack of outpatient monitoring, will keep until fever improves, if not then he will need bone marrow Bx Thank you Dr Le for your consultation, will follow up with you. Katlyn Arzate NP-C for Dr. Mishel Fry MD Infectious Diseases Specialist [facility] [place] [phone] O [phone] Subjective Date of service: 07/27/17 Principal diagnosis: leukopenia, fever, thrush Interval history: I am able to eat a little bit, no fever Microbiology: Blood cultures: 07/19 in progress Respiratory cultures: influenza negative 07/19 Cryptococcus antigen negative Urine culture: negative Current Antimicrobials: Ceftriaoxne 07/20 Diflucan 07/19 Previous Antimicrobials: Vancomycin Zosyn 07/20 levaquin 07/20 tamiflu07/19 bactrim 07/19 Objective - Exam Narrative Exam: General appearance: Alert in NAD, conversant Eyes: anicteric sclerae, moist conjunctivae; no lid-lag; PERRLA HENT: Atraumatic; oropharynx +marked thrush Neck: Trachea midline; supple, no thyromegaly or lymphadenopathy Lungs: scattered crackles demarcus CV: RRR s1 s2 Abdomen: Soft, non-tender; no masses or hepatosplenomegaly Extremities: No peripheral edema or extremity lymphadenopathy Skin: Normal temperature, turgor and texture; no rash, ulcers or subcutaneous nodules Psych: Appropriate affect, calm and cooperative Neuro: alert and oriented x 3. Moving all extermities Lines: No CVL / PICC - Constitutional Vitals: Vital Signs Temp Pulse Resp BP Pulse Ox 98.1 F 40 L 20 99/61 97 07/27/17 08:16 07/27/17 08:16 07/27/17 08:16 07/27/17 08:16 07/27/17 08:16 Temperature -Last 24 Hours Temperature 98.1 F Temperature 98.0 F Temperature 100.8 F Temperature 97.6 F - Labs CBC & Chem 7: 07/27/17 10:02 07/27/17 10:48 Labs: Abnormal lab results 07/26/17 07/26/17 07/27/17 Range/Units 08:48 23:38 08:06 WBC (4.5-11.0) K/mm3 RBC (3.65-5.03) M/mm3 MCV (84-94) fl MCH (28-32) pg RDW (13.2-15.2) % Plt Count (140-440) K/mm3 Sodium 129 L 127 L (137-145) mmol/L Potassium (3.6-5.0) mmol/L Chloride (98-107) mmol/L Carbon Dioxide (22-30) mmol/L Calcium (8.4-10.2) mg/dL Urine Creatinine 219.3 H (0.1-20.0) mg/dL Urine Total Protein 70 H (5-11.8) mg/dL 07/27/17 07/27/17 07/27/17 Range/Units 08:06 08:06 10:02 WBC 1.1 L* 1.5 L* (4.5-11.0) K/mm3 RBC 5.07 H (3.65-5.03) M/mm3 MCV 75 L 74 L (84-94) fl MCH 24 L 24 L (28-32) pg RDW 16.2 H 16.1 H (13.2-15.2) % Plt Count 106 L 98 L (140-440) K/mm3 Sodium 126 L (137-145) mmol/L Potassium 6.2 H* D (3.6-5.0) mmol/L Chloride 92.0 L (98-107) mmol/L Carbon Dioxide 19 L (22-30) mmol/L Calcium 7.9 L (8.4-10.2) mg/dL Urine Creatinine (0.1-20.0) mg/dL Urine Total Protein (5-11.8) mg/dL
[2017-07-27 11:15] LABS: Uric Acid 4.8 mg/dL (3.5-7.6)
--- NOTE | 2017-07-27 11:18 | Progress Note ---
Assessment and Plan (1) Neutropenia Current Visit: Yes Status: Acute Qualifiers: Neutropenia type: due to infection Qualified Code(s): D70.3 - Neutropenia due to infection Plan to address problem: On airborne precautions, evaluating for TB, additional labs pending Influenza negative As per ID management (2) Hyponatremia Current Visit: Yes Status: Acute Plan to address problem: improving will d/c salt tabs will switch IVF to 1/2 NS with NaHCO3 75 meq @ 75 cc/h cont fluid restriction (3) Acute renal failure (ARF) Current Visit: Yes Status: Acute Plan to address problem: Cr is improving IVF as abive Obtain daily weight Strict intake and output Morales Catheter: No (4) HIV (human immunodeficiency virus infection) Current Visit: Yes Status: Acute Plan to address problem: As per ID management (5) Metabolic acidosis Current Visit: Yes Status: Acute Plan to address problem: improving (6) Thrush Current Visit: Yes Status: Acute Plan to address problem: On Diflucan As per primary and ID service Subjective Date of service: 07/27/17 Principal diagnosis: leukopenia, fever, thrush Interval history: feels weak, denies chest pain Objective - Vital Signs Vital signs: Vital Signs - 12hr 07/27/17 08:16 Temperature 98.1 F Pulse Rate 40 L Respiratory 20 Rate Blood Pressure 99/61 O2 Sat by Pulse 97 Oximetry - General Appearance General appearance: well-developed, cachectic EENT: ATNC, PERRL, mucous membranes moist Neck: no JVD, no carotid bruit Respiratory: Present: Decreased Breath Sounds Cardiology: regular, S1S2 Gastrointestinal: normoactive bowel sounds, no tenderness, no distended Integumentary: no rash, warm and dry Neurologic: no focal deficit, no asterixis, alert and oriented x3 Musculoskeletal: other (no edema in BLE) Psychiatric: mood/affect appropriate, cooperative - Lab 07/27/17 10:02 07/27/17 10:48 Most recent lab results Calcium 7.9 mg/dL (8.4-10.2) L 07/27/17 10:48 Phosphorus 3.60 mg/dL (2.5-4.5) 07/26/17 03:32 Urine Creatinine 219.3 mg/dL (0.1-20.0) H 07/26/17 08:48 Urine Sodium 36 mmol/L 07/26/17 08:48 Urine Total Protein 70 mg/dL (5-11.8) H 07/26/17 08:48
[2017-07-27] MEDS ORDERED: CALCIUM GLUCONATE 2,000 MG in NACL 0.9% 100 ML IV ONE (11:30)
[2017-07-27] MEDS: MAGIC MOUTHWASH PO SCH ×3 (12:02→22:17)
[2017-07-27] MEDS: cefTRIAXone 2 GM in NACL 0.9% 20 ML IV SCH ×2 (12:02→12:06)
[2017-07-27] MEDS: PROTONIX PO SCH (12:03)
[2017-07-27] MEDS: DIFLUCAN PO SCH (12:03)
[2017-07-27] MEDS: LOVENOX SUB-Q SCH (12:03)
[2017-07-27] MEDS: SODIUM CHLORIDE PO SCH (12:04)
[2017-07-27] MEDS: NACL 0.45% 1000 ML 1,000 ML with SODIUM BICARBONATE 75 MEQ IV SCH (17:44)
[2017-07-27] MEDS: FLOMAX PO SCH (22:17)
[2017-07-28] MEDS: TYLENOL PO PRN (05:09)
[2017-07-28 05:46] LABS: HIV-1 Antibody Differentiation SEE SCANNED RESULTS; HIV-2 Antibody Differentiation SEE SCANNED RESULTS
[2017-07-28] MEDS: MAGIC MOUTHWASH PO SCH ×3 (08:00→20:03)
[2017-07-28 09:29] LABS: Hematocrit 32.6 % (35.5-45.6); Hemoglobin 10.9 gm/dl (11.8-15.2); Mean Corpuscular HGB Conc 33 % (32-34); Mean Corpuscular Volume 74 fl (84-94); Red Blood Count 4.43 M/mm3 (3.65-5.03); Red Cell Distribution Width 15.8 % (13.2-15.2)
[2017-07-28 09:31] LABS: Mean Corpuscular Hemoglobin 25 pg (28-32)
[2017-07-28 09:35] LABS: % Iron Saturation 25.29 %
[2017-07-28 09:38] LABS: INR 0.94 (0.87-1.13)
[2017-07-28 09:39] LABS: Partial Thromboplastin Time 32.1 Sec. (24.2-36.6)
[2017-07-28 09:40] LABS: BUN/Creatinine Ratio 12; Blood Urea Nitrogen 15 mg/dL (9-20); Calcium 7.6 mg/dL (8.4-10.2); Hemolysis Index 3
--- NOTE | 2017-07-28 09:48 | Hem/Onc Consultation ---
History of Present Illness - Reason for Consult Consult date: 07/28/17 - History of Present Illness Consult dictated. Agree with bone marrow biopsy. Labs ordered. Monitor counts carefully. At this time it seems the N cytopenia is from HIV. Rule out opportunistic infections. Transfuse as needed. Past History Past Medical History: diabetes, hypertension Past Surgical History: No surgical history Social history: smoking, other (homeless) Family history: hypertension Medications and Allergies Allergies Allergy/AdvReac Type Severity Reaction Status Date / Time No Known Allergies Allergy Verified 07/19/17 14:16 Home Medications Medication Instructions Recorded Confirmed Last Taken Type No Known Home Medications [No 07/19/17 07/19/17 Unknown History Reported Home Medications] Active Meds: Active Medications Acetaminophen (Tylenol) 650 mg PO Q4H PRN PRN Reason: Pain MILD(1-3)/Fever >100.5/OSMAN Last Admin: 07/28/17 05:09 Dose: 650 mg Bisacodyl (Dulcolax) 10 mg [place] QDAY PRN PRN Reason: Constipation unrelieved by MOM Enoxaparin Sodium (Lovenox) 40 mg SUB-Q QDAY@1000 [facility] Last Admin: 07/27/17 12:03 Dose: 40 mg Fentanyl (Sublimaze) 100 mcg IV ONCE ONE Stop: 07/28/17 09:36 Fluconazole (Diflucan) 400 mg PO QDAY [facility] Stop: 08/01/17 10:59 Last Admin: 07/27/17 12:03 Dose: 400 mg Hydromorphone HCl (Dilaudid) 0.5 mg IV Q3H PRN PRN Reason: Pain , Severe (7-10) Sodium Bicarbonate 75 meq/ (Sodium Chloride) 1,075 mls @ 75 mls/hr IV DIRECT [facility] Last Admin: 07/27/17 17:44 Dose: 75 mls/hr Lidocaine HCl (Magic Mouthwash) 15 ml PO TID [facility] Last Admin: 07/27/17 22:17 Dose: 15 ml Magnesium Hydroxide (Milk Of Magnesia) 30 ml PO Q4H PRN PRN Reason: Constipation Midazolam HCl (Versed) 5 mg IV ONCE ONE Stop: 07/28/17 09:36 Morphine Sulfate (Morphine) 2 mg IV Q4H PRN PRN Reason: Pain, Moderate (4-6) Ondansetron HCl (Zofran) 4 mg IV Q8H PRN PRN Reason: N/V unrelieved by Reglan Last Admin: 07/23/17 20:47 Dose: 4 mg Oxycodone/Acetaminophen (Percocet 5/325) 1 tab PO Q6H PRN PRN Reason: Pain, Moderate (4-6) Last Admin: 07/23/17 15:14 Dose: 1 tab Pantoprazole Sodium (Protonix) 40 mg PO QDAY [facility] Last Admin: 07/27/17 12:03 Dose: 40 mg Tamsulosin HCl (Flomax) 0.4 mg PO QHS LAW Last Admin: 07/27/17 22:17 Dose: 0.4 mg Zolpidem Tartrate (Ambien) 5 mg PO QHS PRN PRN Reason: Sleep Last Admin: 07/24/17 22:32 Dose: 5 mg Exam - Constitutional Vitals: Last Vital Signs Temp 101.5 F H 07/28/17 06:09 Pulse 116 H 07/28/17 04:37 Resp 20 07/28/17 04:37 BP 111/53 07/28/17 04:37 Pulse Ox 98 07/28/17 04:37 Results - Labs lab Results: Laboratory Results - last 24 hr 07/19/17 07/19/17 07/27/17 21:20 21:20 08:06 WBC RBC Hgb Hct MCV MCH MCHC RDW Plt Count 106 L Percent Retic PT INR APTT Sodium Potassium Chloride Carbon Dioxide Anion Gap BUN Creatinine Estimated GFR BUN/Creatinine Ratio Glucose Uric Acid Calcium Iron TIBC % Saturation Transferrin Lactate Dehydrogenase Total Creatine Kinase Free T4 HIV DNA Qual (PCR) See scanned result HIV-1 Antibody See scanned results HIV-2 Ab (Immunoblot) See scanned results Schistocytes Smear 07/27/17 07/27/17 07/27/17 10:02 10:02 10:40 WBC 1.5 L* RBC 4.98 Hgb 12.1 Hct 37.0 MCV 74 L MCH 24 L MCHC 33 RDW 16.1 H Plt Count 98 L Percent Retic PT INR APTT Sodium Potassium Chloride Carbon Dioxide Anion Gap BUN Creatinine Estimated GFR BUN/Creatinine Ratio Glucose Uric Acid 4.8 Calcium Iron TIBC % Saturation Transferrin Lactate Dehydrogenase 498 H Total Creatine Kinase 43 L Free T4 HIV DNA Qual (PCR) HIV-1 Antibody HIV-2 Ab (Immunoblot) Schistocytes Smear 1+ 07/27/17 07/28/17 07/28/17 10:48 09:03 09:03 WBC RBC Hgb Hct MCV MCH MCHC RDW Plt Count Percent Retic PT INR APTT Sodium 129 L 129 L Potassium 4.5 D Chloride 92.8 L Carbon Dioxide 21 L Anion Gap 20 BUN 19 Creatinine 1.2 Estimated GFR > 60 BUN/Creatinine Ratio 16 Glucose 115 H Uric Acid Calcium 7.9 L Iron TIBC % Saturation Transferrin Lactate Dehydrogenase Total Creatine Kinase Free T4 1.08 HIV DNA Qual (PCR) HIV-1 Antibody HIV-2 Ab (Immunoblot) Schistocytes Smear 07/28/17 07/28/17 07/28/17 09:03 09:03 09:03 WBC 1.3 L* RBC 4.43 Hgb 10.9 L Hct 32.6 L MCV 74 L MCH 25 L MCHC 33 RDW 15.8 H Plt Count Percent Retic 0.55 L PT INR APTT Sodium 128 L Potassium 3.9 Chloride 92.9 L Carbon Dioxide 22 Anion Gap 17 BUN 15 Creatinine 1.3 Estimated GFR > 60 BUN/Creatinine Ratio 12 Glucose 99 Uric Acid Calcium 7.6 L Iron 43 L TIBC 170 L % Saturation 25.29 Transferrin 143 L Lactate Dehydrogenase Total Creatine Kinase Free T4 HIV DNA Qual (PCR) HIV-1 Antibody HIV-2 Ab (Immunoblot) Schistocytes Smear 07/28/17 09:03 WBC RBC Hgb Hct MCV MCH MCHC RDW Plt Count Percent Retic PT 13.0 INR 0.94 APTT 32.1 Sodium Potassium Chloride Carbon Dioxide Anion Gap BUN Creatinine Estimated GFR BUN/Creatinine Ratio Glucose Uric Acid Calcium Iron TIBC % Saturation Transferrin Lactate Dehydrogenase Total Creatine Kinase Free T4 HIV DNA Qual (PCR) HIV-1 Antibody HIV-2 Ab (Immunoblot) Schistocytes Smear
[2017-07-28] MEDS: NACL 0.45% 1000 ML 1,000 ML with SODIUM BICARBONATE 75 MEQ IV SCH (10:00)
[2017-07-28 10:26] LABS: Band Neutrophils # (Manual) 0.1 K/mm3; Basophils % (Manual) 0 % (0.0-1.8); Monocytes % (Manual) 0 % (0.0-7.3); Total Cells Counted 50
[2017-07-28 10:27] LABS: Anisocytosis 1+; Ovalocytes 1+; Poikilocytosis 2+; Schistocytes Rare; Tear Drop Cells Few
[2017-07-28 10:29] LABS: Platelet Count 109 K/mm3 (140-440); Platelet Estimate Cons
--- NOTE | 2017-07-28 10:47 | Progress Note ---
Assessment and Plan Assessment: 1) Sepsis: still fever, tachycardic and hypotensive. Etiology -pneumonia, ? PCP , ?disseminated MAC 2) RLL Pneumonia: CXR neg. CT chest + RLL inflitrate. ? influenza ? CAP ?TB ? opportunistic -CRP 2.1 -influenza antigen neg - AFB x 3 negative 3) Oral candidiasis - better 4) Weight loss: from HIV / AIDS 5) Newly diagnosed HIV ? unknown CD4/VL. Cryptococcal antigen neg 6) Neutropenia/thrombocytopenia: worsening. from HIV ? MAC ? malignancy ? infection? Improving 7) Hyponatremia; better 8) Homeless 9) RADHA - better -Renal US negative 10) Advanced AIDS; CD4 =2, VL [id number] Plan: -pulmonary consult in view of persistent fever -IR guided bone marrow bx for MAC, fungal, and malignancy -hematology following -needs bone marrow bx -add bactrim Iv -continue airborne isolation -patient is homeless with abnormal CT chest -follow up quantiferon TB gold, received -continue fluconazole po day 8 of 14 days -case management assistant eval for penitentiary placement -renal following Katlyn Arzate NP-c will round on Monday Thank you Dr Le for your consultation, will follow up with you. RUPAL MaravillaC for Dr. Mishel Fry MD Infectious Diseases Specialist [facility] M [phone] O [phone] Subjective Date of service: 07/28/17 Principal diagnosis: leukopenia, fever, thrush Interval history: I am able to eat a little bit, now with fever Microbiology: Blood cultures: 07/19 Respiratory cultures: influenza negative 07/19 Cryptococcus antigen negative Urine culture: negative Current Antimicrobials: Diflucan 07/19 Previous Antimicrobials: Vancomycin Zosyn 07/20 levaquin 07/20 tamiflu07/19 bactrim 07/19 Ceftriaoxne 07/20 Objective - Exam Narrative Exam: General appearance: Alert in NAD, conversant Eyes: anicteric sclerae, moist conjunctivae; no lid-lag; PERRLA HENT: Atraumatic; oropharynx +marked thrush Neck: Trachea midline; supple, no thyromegaly or lymphadenopathy Lungs: scattered crackles demarcus CV: RRR s1 s2 Abdomen: Soft, non-tender; no masses or hepatosplenomegaly Extremities: No peripheral edema or extremity lymphadenopathy Skin: Normal temperature, turgor and texture; no rash, ulcers or subcutaneous nodules Psych: Appropriate affect, calm and cooperative Neuro: alert and oriented x 3. Moving all extermities Lines: No CVL / PICC - Constitutional Vitals: Vital Signs Temp Pulse Resp BP Pulse Ox 101.5 F H 116 H 20 111/53 98 07/28/17 06:09 07/28/17 04:37 07/28/17 04:37 07/28/17 04:37 07/28/17 04:37 Temperature -Last 24 Hours Temperature 101.5 F Temperature 103.1 F Temperature 98.8 F Temperature 98.7 F - Labs CBC & Chem 7: 07/28/17 09:03 07/28/17 09:03 Labs: Abnormal lab results 07/27/17 07/27/17 07/28/17 Range/Units 10:40 10:48 09:03 WBC (4.5-11.0) K/mm3 Hgb (11.8-15.2) gm/dl Hct (35.5-45.6) % MCV (84-94) fl MCH (28-32) pg RDW (13.2-15.2) % Plt Count (140-440) K/mm3 Seg Neutrophils # Man (1.8-7.7) K/mm3 Lymphocytes # (Manual) (1.2-5.4) K/mm3 Percent Retic (0.78-2.58) % Sodium 129 L 129 L (137-145) mmol/L Chloride 92.8 L (98-107) mmol/L Carbon Dioxide 21 L (22-30) mmol/L Glucose 115 H (75-100) mg/dL Calcium 7.9 L (8.4-10.2) mg/dL Iron (49-181) ug/dL TIBC (250-450) mcg/dL Transferrin (180-329) mg/dl Ferritin (13.0-400.0) ng/mL Lactate Dehydrogenase 498 H (91-180) units/L Total Creatine Kinase 43 L (55-170) units/L 07/28/17 07/28/17 07/28/17 Range/Units 09:03 09:03 09:03 WBC 1.3 L* (4.5-11.0) K/mm3 Hgb 10.9 L (11.8-15.2) gm/dl Hct 32.6 L (35.5-45.6) % MCV 74 L (84-94) fl MCH 25 L (28-32) pg RDW 15.8 H (13.2-15.2) % Plt Count 109 L (140-440) K/mm3 Seg Neutrophils # Man 0.9 L (1.8-7.7) K/mm3 Lymphocytes # (Manual) 0.2 L (1.2-5.4) K/mm3 Percent Retic 0.55 L (0.78-2.58) % Sodium 128 L (137-145) mmol/L Chloride 92.9 L (98-107) mmol/L Carbon Dioxide (22-30) mmol/L Glucose (75-100) mg/dL Calcium 7.6 L (8.4-10.2) mg/dL Iron 43 L (49-181) ug/dL TIBC 170 L (250-450) mcg/dL Transferrin 143 L (180-329) mg/dl Ferritin (13.0-400.0) ng/mL Lactate Dehydrogenase (91-180) units/L Total Creatine Kinase (55-170) units/L 07/28/17 Range/Units 09:03 WBC (4.5-11.0) K/mm3 Hgb (11.8-15.2) gm/dl Hct (35.5-45.6) % MCV (84-94) fl MCH (28-32) pg RDW (13.2-15.2) % Plt Count (140-440) K/mm3 Seg Neutrophils # Man (1.8-7.7) K/mm3 Lymphocytes # (Manual) (1.2-5.4) K/mm3 Percent Retic (0.78-2.58) % Sodium (137-145) mmol/L Chloride (98-107) mmol/L Carbon Dioxide (22-30) mmol/L Glucose (75-100) mg/dL Calcium (8.4-10.2) mg/dL Iron (49-181) ug/dL TIBC (250-450) mcg/dL Transferrin (180-329) mg/dl Ferritin 20706.0 H (13.0-400.0) ng/mL Lactate Dehydrogenase (91-180) units/L Total Creatine Kinase (55-170) units/L
--- NOTE | 2017-07-28 10:53 | Consultation ---
REASON FOR CONSULTATION: Pancytopenia. HISTORY OF PRESENT ILLNESS: The patient is a 37-year-old male who is a [place] of [place]. He has had no past medical history except for smoking abuse, but presented with generalized weakness, weight loss of about 10 pounds, progressive shortness of breath. He during his hospital course underwent HIV testing and was positive with a high viral load and low CD4 count. He also on admission was found to be neutropenic with a white count of 1.7. He has had evidence of continued neutropenia, today's white count is 1.3, platelets have dropped, today's are pending. Yesterday was 98. Hemoglobin is 10.9. Hematology consult was called. The patient complains of weakness. He also has had a fever. The patient is difficult to get information, but he also has been started on antibiotics in the form of ceftriaxone. The patient's bone marrow biopsy has also been ordered by Dr. Browne. The patient denied any previous history of any obvious diseases. He has never had HIV tested in the past. SOCIAL HISTORY: Positive for tobacco abuse. PHYSICAL EXAMINATION: GENERAL: The patient is a weak looking man. HEENT: Examination reveals evidence of thrush in the mouth. CHEST: Crackles bilaterally at the bases. ABDOMEN: Soft. EXTREMITIES: No clubbing, cyanosis, or edema. SKIN: Dry. NEUROLOGIC: He seems to be quiet, but answering appropriately. PERTINENT LABORATORY DATA: The patient's white count is 1.3. Differential is pending. Hemoglobin 10.9, platelets are pending. His MCV is 74. OTHER PERTINENT LABS: Retic count 0.55. Sodium 128, creatinine 1.3. He has had fluctuations in his creatinine level, currently showing improvement. His percent saturation is 25.29, transferrin 143, TIBC 170. ASSESSMENT: Pancytopenia in this patient with recently diagnosed human immunodeficiency virus, possibly acquired immunodeficiency syndrome with a low CD4 count and a very high viral load in this 37-year-old male. RECOMMENDATION AND PLAN: At this time, we will follow him. Agree with bone marrow biopsy with cultures and histology. We will support him with transfusions as necessary. If counts go lower, may need to give growth factor support. JOB# [id number] S/NTS
--- NOTE | 2017-07-28 11:00 | Progress Note ---
Assessment and Plan (1) Pancytopenia Current Visit: Yes Status: Acute Qualifiers: Neutropenia type: due to infection Qualified Code(s): D70.3 - Neutropenia due to infection Plan to address problem: hematology consult requested scheduled for BMB (2) Hyponatremia Current Visit: Yes Status: Acute Plan to address problem: will d/c IVF and start NaCl tabs 2 grams TID cont fluid restriction (3) Acute renal failure (ARF) Current Visit: Yes Status: Acute Plan to address problem: resolved (4) HIV (human immunodeficiency virus infection) Current Visit: Yes Status: Acute Plan to address problem: As per ID management (5) Metabolic acidosis Current Visit: Yes Status: Acute Plan to address problem: will d/c bicarb gtt (6) Thrush Current Visit: Yes Status: Acute Plan to address problem: On Diflucan As per primary and ID service Subjective Date of service: 07/28/17 Principal diagnosis: leukopenia, fever, thrush Interval history: remains to feel weak Objective - Vital Signs Vital signs: Vital Signs - 12hr 07/28/17 07/28/17 04:37 06:09 Temperature 103.1 F H 101.5 F H Pulse Rate 116 H Respiratory 20 Rate Blood Pressure 111/53 O2 Sat by Pulse 98 Oximetry - General Appearance General appearance: well-developed, cachectic EENT: ATNC, PERRL, mucous membranes moist Neck: no JVD, no carotid bruit Respiratory: Present: Clear to Ascultation. Absent: Rales, Ronchi Cardiology: regular, S1S2 Gastrointestinal: normoactive bowel sounds, no tenderness, no distended Integumentary: no rash, warm and dry Neurologic: no focal deficit, no asterixis, alert and oriented x3 Musculoskeletal: deferred Psychiatric: mood/affect appropriate, cooperative - Lab 07/28/17 09:03 07/28/17 09:03 Most recent lab results Calcium 7.6 mg/dL (8.4-10.2) L 07/28/17 09:03 Phosphorus 3.60 mg/dL (2.5-4.5) 07/26/17 03:32 Urine Creatinine 219.3 mg/dL (0.1-20.0) H 07/26/17 08:48 Urine Sodium 36 mmol/L 07/26/17 08:48 Urine Total Protein 70 mg/dL (5-11.8) H 07/26/17 08:48
[2017-07-28] MEDS ORDERED: SUBLIMAZE IV NR (11:30)
[2017-07-28] MEDS ORDERED: VERSED IV NR (11:30)
--- NOTE | 2017-07-28 11:43 | Cat Scan Report ---
CT BIOPSY BONE MARROW: HISTORY: Fever, pancytopenia. DESCRIPTION OF PROCEDURE: Informed consent was obtained. Sterile technique was utilized. Conscious sedation was accomplished with Versed and fentanyl. The patient was sedated for 15 minutes. Independent cardiorespiratory monitoring by RN. Intra-observer time of [address] guidance, an introducer needle was advanced into the right posterior iliac bone. 4 aspirations and one 11-gauge bone core was obtained. Pathology was present to handle the sample. The patient tolerated the procedure without difficulty. IMPRESSION: Successful CT-guided bone marrow biopsy.
[2017-07-28] MEDS: PROTONIX PO SCH (14:13)
[2017-07-28] MEDS: LOVENOX SUB-Q SCH (14:13)
[2017-07-28] MEDS: DIFLUCAN PO SCH (14:13)
[2017-07-28] MEDS: SODIUM CHLORIDE PO SCH ×2 (14:14→20:05)
--- NOTE | 2017-07-28 16:42 | Progress Note ---
Assessment and Plan Assessment and Plan Assessment and plan: Patient is a 37-year-old man originally from [place] with a history of tobacco dependency who presented with fevers, sore throat, weight loss, abdominal pain and shortness of breath SEPSIS PNA: Infectious Disease is following, ivf and abx, follow cultures Doubt Tb. will obtain Hematology consult. Bone marrow biopsy. 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 Will discuss with ID about PCP prophylaxis. Not been ruled out for TB Oral thrush candidiasis: Treat with Diflucan Neutropenia was likely related to infection: Treated infection Acute kidney injury- Possible secondary to visible nephropathy. Patient received a contrast study recently also. We'll start on IV fluids we'll check renal ultrasound if no improvement will consult urology stage settings painter Hyperkalemia-corrected RLL Aspiration pneumonia: iv abx, r/o TB Tobacco dependancy: certified credit counselor on stopping-15 MINS SPENT. Hyponatremia: Persist possible SIADH, Nephrology following. Severe malnutrition: consult Mysql Developer, encourage po intake Urinary retention; Maybe secondary to principal disease. Continue on flomax, urology eval outpatient of symptoms continue GERD: add PPI DVT prophylaxis: Subcutaneous Lovenox full code Plan discussed with patient. Continue isolation precaution Subjective Date of service: 07/28/17 Principal diagnosis: leukopenia, fever, thrush Interval history: Afebrile,Feeling better Objective - Constitutional Vitals: Vital Signs - 12hr 07/28/17 07/28/17 07/28/17 06:09 09:19 10:50 Temperature 101.5 F H 97.9 F Pulse Rate 90 Pulse Rate [ Intra-Procedure ] Pulse Rate [ Post-Procedure] Pulse Rate [Pre 89 -Procedure] Respiratory 18 Rate Respiratory Rate [Intra- Procedure] Respiratory Rate [Post- Procedure] Respiratory 16 Rate [Pre- Procedure] Blood Pressure 99/65 Blood Pressure [Intra- Procedure] Blood Pressure [Post-Procedure ] Blood Pressure 101/71 [Pre-Procedure] O2 Sat by Pulse 100 Oximetry O2 Sat by Pulse Oximetry [ Intra-Procedure ] O2 Sat by Pulse Oximetry [Post -Procedure] O2 Sat by Pulse 100 Oximetry [Pre- Procedure] 07/28/17 07/28/17 07/28/17 11:07 11:10 11:27 Temperature Pulse Rate Pulse Rate [ 97 H 99 H Intra-Procedure ] Pulse Rate [ 97 H Post-Procedure] Pulse Rate [Pre -Procedure] Respiratory Rate Respiratory 14 14 Rate [Intra- Procedure] Respiratory 12 Rate [Post- Procedure] Respiratory Rate [Pre- Procedure] Blood Pressure Blood Pressure 83/47 88/50 [Intra- Procedure] Blood Pressure 75/37 [Post-Procedure ] Blood Pressure [Pre-Procedure] O2 Sat by Pulse Oximetry O2 Sat by Pulse 100 100 Oximetry [ Intra-Procedure ] O2 Sat by Pulse 97 Oximetry [Post -Procedure] O2 Sat by Pulse Oximetry [Pre- Procedure] 07/28/17 11:32 Temperature Pulse Rate Pulse Rate [ Intra-Procedure ] Pulse Rate [ 103 H Post-Procedure] Pulse Rate [Pre -Procedure] Respiratory Rate Respiratory Rate [Intra- Procedure] Respiratory 12 Rate [Post- Procedure] Respiratory Rate [Pre- Procedure] Blood Pressure Blood Pressure [Intra- Procedure] Blood Pressure 82/37 [Post-Procedure ] Blood Pressure [Pre-Procedure] O2 Sat by Pulse Oximetry O2 Sat by Pulse Oximetry [ Intra-Procedure ] O2 Sat by Pulse 97 Oximetry [Post -Procedure] O2 Sat by Pulse Oximetry [Pre- Procedure] General appearance: Present: no acute distress, well-nourished - EENT Eyes: PERRL, EOM intact ENT: hearing intact, clear oral mucosa Ears: bilateral: normal - Neck Neck: supple, normal ROM - Respiratory Respiratory effort: normal Respiratory: bilateral: CTA - Breasts Breasts: normal - Cardiovascular Rhythm: regular Heart Sounds: Present: S1 & S2. Absent: gallop, rub Extremities: pulses intact, No edema, normal color, Full ROM - Gastrointestinal General gastrointestinal: Present: soft, non-tender, non-distended, normal bowel sounds - Genitourinary Male genitourinary: normal - Integumentary Integumentary: clear, warm, dry - Musculoskeletal Musculoskeletal: 1, strength equal bilaterally - Neurologic Neurologic: moves all extremities - Psychiatric Psychiatric: memory intact, appropriate mood/affect, intact judgment & insight - Labs CBC & Chem 7: 07/29/17 04:31 07/29/17 04:31 Labs: Abnormal lab results 07/28/17 07/28/17 07/28/17 Range/Units 09:03 09:03 09:03 WBC 1.3 L* (4.5-11.0) K/mm3 Hgb 10.9 L (11.8-15.2) gm/dl Hct 32.6 L (35.5-45.6) % MCV 74 L (84-94) fl MCH 25 L (28-32) pg RDW 15.8 H (13.2-15.2) % Plt Count 109 L (140-440) K/mm3 Seg Neutrophils # Man 0.9 L (1.8-7.7) K/mm3 Lymphocytes # (Manual) 0.2 L (1.2-5.4) K/mm3 Percent Retic 0.55 L (0.78-2.58) % Sodium 129 L 128 L (137-145) mmol/L Chloride 92.9 L (98-107) mmol/L Calcium 7.6 L (8.4-10.2) mg/dL Iron (49-181) ug/dL TIBC (250-450) mcg/dL Transferrin (180-329) mg/dl Ferritin (13.0-400.0) ng/mL 07/28/17 07/28/17 Range/Units 09:03 09:03 WBC (4.5-11.0) K/mm3 Hgb (11.8-15.2) gm/dl Hct (35.5-45.6) % MCV (84-94) fl MCH (28-32) pg RDW (13.2-15.2) % Plt Count (140-440) K/mm3 Seg Neutrophils # Man (1.8-7.7) K/mm3 Lymphocytes # (Manual) (1.2-5.4) K/mm3 Percent Retic (0.78-2.58) % Sodium (137-145) mmol/L Chloride (98-107) mmol/L Calcium (8.4-10.2) mg/dL Iron 43 L (49-181) ug/dL TIBC 170 L (250-450) mcg/dL Transferrin 143 L (180-329) mg/dl Ferritin 69692.0 H (13.0-400.0) ng/mL
[2017-07-28] MEDS: D5W IV SCH ×2 (18:20→18:21)
[2017-07-28] MEDS: BACTRIM IV SCH ×2 (18:20→18:21)
[2017-07-28] MEDS: FLOMAX PO SCH (22:04)
[2017-07-29] MEDS: D5W IV SCH ×5 (00:21→23:11)
[2017-07-29] MEDS: BACTRIM IV SCH ×5 (00:21→23:11)
[2017-07-29 04:54] LABS: Hematocrit 32.6 % (35.5-45.6); Hemoglobin 10.9 gm/dl (11.8-15.2); Mean Corpuscular HGB Conc 33 % (32-34); Mean Corpuscular Hemoglobin 24 pg (28-32); Mean Corpuscular Volume 73 fl (84-94); Platelet Count 74 K/mm3 (140-440); Red Blood Count 4.48 M/mm3 (3.65-5.03); Red Cell Distribution Width 16.5 % (13.2-15.2)
[2017-07-29 06:22] LABS: Band Neutrophils # (Manual) 0.3 K/mm3; Basophils % (Manual) 0 % (0.0-1.8); Total Cells Counted 50
[2017-07-29 06:23] LABS: Anisocytosis 1+; Hypochromasia 1+; Ovalocytes 1+; Platelet Estimate Consistent w Auto; Tear Drop Cells Rare
[2017-07-29] MEDS: SODIUM CHLORIDE PO SCH ×3 (10:14→20:20)
[2017-07-29] MEDS: MAGIC MOUTHWASH PO SCH ×3 (10:15→20:15)
[2017-07-29] MEDS: LOVENOX SUB-Q SCH (10:17)
[2017-07-29] MEDS: DIFLUCAN PO SCH (10:17)
[2017-07-29] MEDS: PROTONIX PO SCH (10:17)
--- NOTE | 2017-07-29 10:28 | Hem/Onc Progress Note ---
Assessment and Plan - Patient Problems (1) Pancytopenia Current Visit: Yes Status: Acute Plan to address problem: This is probably due to HIV/AIDS. Watch ANC , if it drops can sonsider neupogen. If platelets drop below 20K or if bleeding consider transfusion. Subjective Date of service: 07/29/17 Interval history: No new complains. Objective - Constitutional Vitals: Last Vital Signs Temp 100.5 F H 07/29/17 08:03 Pulse 98 H 07/28/17 19:09 Resp 18 07/29/17 08:03 BP 97/50 07/29/17 08:03 Pulse Ox 96 07/28/17 19:09 - EENT Eyes: PERRL ENT: hearing intact - Neck Neck: supple - Respiratory Respiratory effort: Positive: normal - Labs Lab Results: Laboratory Results - last 24 hr 07/28/17 07/28/17 07/29/17 09:03 09:03 04:31 WBC RBC Hgb Hct MCV MCH MCHC RDW Plt Count 109 L Eos % (Auto) Add Manual Diff Complete Total Counted 50 Seg Neuts % (Manual) 70.0 Band Neutrophils % 6.0 Lymphocytes % (Manual) 18.0 Reactive Lymphs % (Man) 4.0 Monocytes % (Manual) 0 Eosinophils % (Manual) 2.0 Basophils % (Manual) 0 Metamyelocytes % 0 Myelocytes % 0 Promyelocytes % 0 Blast Cells % 0 Nucleated RBC % Not Reportable Seg Neutrophils # Man 0.9 L Band Neutrophils # 0.1 Lymphocytes # (Manual) 0.2 L Abs React Lymphs (Man) 0.1 Monocytes # (Manual) 0.0 Eosinophils # (Manual) 0.0 Basophils # (Manual) 0.0 Metamyelocytes # 0.0 Myelocytes # 0.0 Promyelocytes # 0.0 Blast Cells # 0.0 WBC Morphology Not Reportable Hypersegmented Neuts Not Reportable Hyposegmented Neuts Not Reportable Hypogranular Neuts Not Reportable Smudge Cells Not Reportable Toxic Granulation Not Reportable Toxic Vacuolation Not Reportable Dohle Bodies Not Reportable Pelger-Huet Anomaly Not Reportable Steffen Rods Not Reportable Platelet Estimate Cons Clumped Platelets Not Reportable Plt Clumps, EDTA Not Reportable Large Platelets Not Reportable Giant Platelets Not Reportable Platelet Satelliting Not Reportable Plt Morphology Comment Not Reportable RBC Morphology Not Reportable Dimorphic RBCs Not Reportable Polychromasia Not Reportable Hypochromasia Not Reportable Poikilocytosis 2+ Anisocytosis 1+ Microcytosis Not Reportable Macrocytosis Not Reportable Spherocytes Not Reportable Pappenheimer Bodies Not Reportable Sickle Cells Not Reportable Target Cells Not Reportable Tear Drop Cells Few Ovalocytes 1+ Helmet Cells Not Reportable Collins-[place] Bodies Not Reportable Parlin Rings Not Reportable [place] Cells Not Reportable Bite Cells Not Reportable Crenated Cell Not Reportable Elliptocytes 1+ Acanthocytes (Spur) Not Reportable Rouleaux Not Reportable Hemoglobin C Crystals Not Reportable Schistocytes Rare Malaria parasites Not Reportable Ezekiel Bodies Not Reportable Hem Pathologist Commnt No Sodium 129 L Ferritin 22714.0 H Lactate Dehydrogenase 07/29/17 07/29/17 04:31 04:31 WBC 1.7 L* RBC 4.48 Hgb 10.9 L Hct 32.6 L MCV 73 L MCH 24 L MCHC 33 RDW 16.5 H Plt Count 74 L Eos % (Auto) Hollow Tile Partition Erector Add Manual Diff Complete Total Counted 50 Seg Neuts % (Manual) 50.0 Band Neutrophils % 18.0 Lymphocytes % (Manual) 12.0 L Reactive Lymphs % (Man) 0 Monocytes % (Manual) 4.0 Eosinophils % (Manual) 16.0 H Basophils % (Manual) 0 Metamyelocytes % 0 Myelocytes % 0 Promyelocytes % 0 Blast Cells % 0 Nucleated RBC % Not Reportable Seg Neutrophils # Man 0.9 L Band Neutrophils # 0.3 Lymphocytes # (Manual) 0.2 L Abs React Lymphs (Man) 0.0 Monocytes # (Manual) 0.1 Eosinophils # (Manual) 0.3 Basophils # (Manual) 0.0 Metamyelocytes # 0.0 Myelocytes # 0.0 Promyelocytes # 0.0 Blast Cells # 0.0 WBC Morphology Not Reportable Hypersegmented Neuts Not Reportable Hyposegmented Neuts Not Reportable Hypogranular Neuts Not Reportable Smudge Cells Not Reportable Toxic Granulation Not Reportable Toxic Vacuolation Not Reportable Dohle Bodies Not Reportable Pelger-Huet Anomaly Not Reportable Steffen Rods Not Reportable Platelet Estimate Consistent w auto Clumped Platelets Not Reportable Plt Clumps, EDTA Not Reportable Large Platelets Not Reportable Giant Platelets Not Reportable Platelet Satelliting Not Reportable Plt Morphology Comment Not Reportable RBC Morphology Not Reportable Dimorphic RBCs Not Reportable Polychromasia Not Reportable Hypochromasia 1+ Poikilocytosis Not Reportable Anisocytosis 1+ Microcytosis Not Reportable Macrocytosis Not Reportable Spherocytes Not Reportable Pappenheimer Bodies Not Reportable Sickle Cells Not Reportable Target Cells Not Reportable Tear Drop Cells Rare Ovalocytes 1+ Helmet Cells Not Reportable Collins-[place] Bodies Not Reportable Parlin Rings Not Reportable [place] Cells Not Reportable Bite Cells Not Reportable Crenated Cell Not Reportable Elliptocytes 1+ Acanthocytes (Spur) Not Reportable Rouleaux Not Reportable Hemoglobin C Crystals Not Reportable Schistocytes Not Reportable Malaria parasites Not Reportable Ezekiel Bodies Not Reportable Hem Pathologist Commnt No Sodium Ferritin Lactate Dehydrogenase 577 H
--- NOTE | 2017-07-29 16:19 | Progress Note ---
Assessment and Plan Assessment and Plan Assessment and plan: Patient is a 37-year-old man originally from [place] with a history of tobacco dependency who presented with fevers, sore throat, weight loss, abdominal pain and shortness of breath SEPSIS PNA: Infectious Disease is following, ivf and abx, follow cultures Doubt Tb. will obtain Hematology consult. Bone marrow biopsy. 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 Will discuss with ID about PCP prophylaxis. Not been ruled out for TB Oral thrush candidiasis: Treat with Diflucan Neutropenia was likely related to infection: Treated infection Acute kidney injury- Possible secondary to vascular nephropathy. Patient received a contrast study recently also. We'll start on IV fluids we'll check renal ultrasound if no improvement will consult urology supervisor framing mill Hyperkalemia-corrected RLL Aspiration pneumonia: iv abx, r/o TB Tobacco dependancy: juvenile counselor on stopping-15 MINS SPENT. Hyponatremia: Persist possible SIADH, Nephrology following. Severe malnutrition: consult Pharmacy Buyer, encourage po intake GERD: add PPI DVT prophylaxis: Subcutaneous Lovenox full code Plan discussed with patient. Continue isolation precaution Subjective Date of service: 07/29/17 Principal diagnosis: leukopenia, fever, thrush Interval history: Afebrile,Feeling better Objective - Constitutional Vitals: Vital Signs - 12hr 07/29/17 08:03 Temperature 100.5 F H Respiratory 18 Rate Blood Pressure 97/50 General appearance: Present: no acute distress, well-nourished - EENT Eyes: PERRL, EOM intact ENT: hearing intact, clear oral mucosa Ears: bilateral: normal - Neck Neck: supple, normal ROM - Respiratory Respiratory effort: normal Respiratory: bilateral: CTA - Breasts Breasts: normal - Cardiovascular Rhythm: regular Heart Sounds: Present: S1 & S2. Absent: gallop, rub Extremities: pulses intact, No edema, normal color, Full ROM - Gastrointestinal General gastrointestinal: Present: soft, non-tender, non-distended, normal bowel sounds - Genitourinary Male genitourinary: normal - Integumentary Integumentary: clear, warm, dry - Musculoskeletal Musculoskeletal: 1, strength equal bilaterally - Neurologic Neurologic: moves all extremities - Psychiatric Psychiatric: memory intact, appropriate mood/affect, intact judgment & insight - Labs CBC & Chem 7: 07/29/17 04:31 07/29/17 04:31 Labs: Abnormal lab results 07/29/17 07/29/17 07/29/17 Range/Units 04:31 04:31 04:31 WBC 1.7 L* (4.5-11.0) K/mm3 Hgb 10.9 L (11.8-15.2) gm/dl Hct 32.6 L (35.5-45.6) % MCV 73 L (84-94) fl MCH 24 L (28-32) pg RDW 16.5 H (13.2-15.2) % Plt Count 74 L (140-440) K/mm3 Lymphocytes % (Manual) 12.0 L (13.4-35.0) % Eosinophils % (Manual) 16.0 H (0.0-4.3) % Seg Neutrophils # Man 0.9 L (1.8-7.7) K/mm3 Lymphocytes # (Manual) 0.2 L (1.2-5.4) K/mm3 Sodium 129 L (137-145) mmol/L Lactate Dehydrogenase 577 H (91-180) units/L
--- NOTE | 2017-07-29 18:29 | Progress Note ---
Assessment and Plan - Patient Problems (1) Pancytopenia Current Visit: Yes Status: Acute Plan to address problem: On airborne precautions, evaluating for TB, labs pending Influenza negative On rocephin and diflucan S/p CT guided Bone Marrow biopsy on 07/28/17 ID started on bactrim IV, will need to monitor renal function closely As per ID, Hem/Onc management (2) Hyponatremia Current Visit: Yes Status: Acute Plan to address problem: Labs reviewed, serum sodium level was 129 today, yesterday's serum sodium level was 128 Maintain fluid restriction of 1 liter per day Continue on sodium chloride tablet 2 g orally three times a day Plan discussed with Dr Amezcua (3) Acute renal failure (ARF) Current Visit: Yes Status: Acute Plan to address problem: No BMP today Renally dose medications S/p renal ultrasound showed no hydronephrosis Obtain daily weight Strict intake and output Morales Catheter: No Renal plan discussed with Dr Amezcua Continue supportive therapy (4) HIV (human immunodeficiency virus infection) Current Visit: Yes Status: Acute Plan to address problem: As per ID management (5) Thrush Current Visit: Yes Status: Acute Plan to address problem: On Diflucan As per primary and ID service (6) Pneumonia Current Visit: Yes Status: Acute Plan to address problem: On rocephin ID on board, follow up recs Subjective Date of service: 07/29/17 Principal diagnosis: leukopenia, fever, thrush Interval history: Patient reports his cellphone was gone when he came out of the bathroom. Spoke with nursing staff who are aware. No family at bedside. Objective - Vital Signs Vital signs: Vital Signs - 12hr 07/29/17 07/29/17 08:03 14:43 Temperature 100.5 F H 99.1 F Respiratory 18 14 Rate Blood Pressure 97/50 96/46 - General Appearance General appearance: other (awake, alert, no acute distress) EENT: ATNC Neck: no JVD Respiratory: Present: Other (Lung sounds decreased bilaterally, unlabored) Cardiology: regular, S1S2 Gastrointestinal: normoactive bowel sounds, no tenderness Integumentary: warm and dry Neurologic: alert and oriented x3 Musculoskeletal: other (no edema to both lower extremities) Psychiatric: mood/affect appropriate - Lab 07/29/17 04:31 07/29/17 04:31 Most recent lab results Calcium 7.6 mg/dL (8.4-10.2) L 07/28/17 09:03 Phosphorus 3.60 mg/dL (2.5-4.5) 07/26/17 03:32 Urine Creatinine 219.3 mg/dL (0.1-20.0) H 07/26/17 08:48 Urine Sodium 36 mmol/L 07/26/17 08:48 Urine Total Protein 70 mg/dL (5-11.8) H 07/26/17 08:48
[2017-07-29] MEDS: FLOMAX PO SCH (22:14)
[2017-07-30] MEDS: BACTRIM IV SCH ×3 (07:00→18:58)
[2017-07-30] MEDS: D5W IV SCH ×3 (07:00→18:58)
[2017-07-30] MEDS: MAGIC MOUTHWASH PO SCH ×3 (10:55→21:00)
[2017-07-30] MEDS: SODIUM CHLORIDE PO SCH ×3 (10:55→21:00)
[2017-07-30] MEDS: PROTONIX PO SCH (10:57)
[2017-07-30] MEDS: LOVENOX SUB-Q SCH (10:57)
[2017-07-30] MEDS: DIFLUCAN PO SCH (10:58)
--- NOTE | 2017-07-30 12:33 | Hem/Onc Progress Note ---
Assessment and Plan - Patient Problems (1) Pancytopenia Current Visit: Yes Status: Acute Plan to address problem: REcheck CBC today. If WBC drops will consider neupogen Subjective Date of service: 07/30/17 Interval history: Resting comfortably. No new complains. Objective - Constitutional Vitals: Last Vital Signs Temp 98.2 F 07/30/17 07:52 Pulse 104 H 07/30/17 07:52 Resp 14 07/30/17 07:52 BP 101/50 07/30/17 07:52 Pulse Ox 97 07/30/17 07:52 - EENT ENT: hearing intact - Neck Neck: supple - Respiratory Respiratory effort: Positive: normal - Labs Lab Results: Laboratory Results - last 24 hr 07/26/17 07/28/17 04:30 09:03 Total Cortisol 12.8 TB (QFT) Gold In Tube Negative TB Test (QFT) Nil 1.69 TB Test Mitogen - Nil 1.11 TB Test Antigen - Nil 0.38
--- NOTE | 2017-07-30 15:23 | Progress Note ---
Assessment and Plan - Patient Problems (1) Pancytopenia Current Visit: Yes Status: Acute Plan to address problem: On airborne precautions, evaluating for TB Hem/onc repeating CBC, considering neupogen Influenza negative On rocephin and diflucan S/p CT guided Bone Marrow biopsy on 07/28/17 ID started on bactrim IV, will need to monitor renal function closely As per ID, Hem/Onc management (2) Hyponatremia Current Visit: Yes Status: Acute Plan to address problem: BMP pending today Maintain fluid restriction of 1 liter per day Currently on sodium chloride tablet 2 g orally three times a day Plan discussed with Dr Amezcua (3) Acute renal failure (ARF) Current Visit: Yes Status: Acute Plan to address problem: BMP pending today Renally dose medications S/p renal ultrasound showed no hydronephrosis Obtain daily weight Strict intake and output Morales Catheter: No Renal plan discussed with Dr Amezcua Continue supportive therapy (4) HIV (human immunodeficiency virus infection) Current Visit: Yes Status: Acute Plan to address problem: As per ID management (5) Thrush Current Visit: Yes Status: Acute Plan to address problem: On Diflucan As per primary and ID service (6) Pneumonia Current Visit: Yes Status: Acute Plan to address problem: On rocephin ID on board, follow up recs Subjective Date of service: 07/30/17 Principal diagnosis: leukopenia, fever, thrush Interval history: Patient reports feeling cool in his room, patient voiced concern again about his missing cellphone from yesterday, staff aware. No family at bedside. Objective - Vital Signs Vital signs: Vital Signs - 12hr 07/30/17 07/30/17 07:52 14:15 Temperature 98.2 F Pulse Rate 104 H Respiratory 14 Rate Blood Pressure 101/50 O2 Sat by Pulse 97 97 Oximetry - General Appearance General appearance: other (awake, alert, no acute distress) EENT: ATNC Neck: no JVD Respiratory: Present: Other (Lung sounds decreased bilaterally, unlabored) Cardiology: regular, S1S2 Gastrointestinal: normoactive bowel sounds, no tenderness Integumentary: warm and dry Neurologic: alert and oriented x3 Musculoskeletal: other (no edema to both lower extremities) Psychiatric: mood/affect appropriate, cooperative - Lab 07/29/17 04:31 07/29/17 04:31 Most recent lab results Calcium 7.6 mg/dL (8.4-10.2) L 07/28/17 09:03 Phosphorus 3.60 mg/dL (2.5-4.5) 07/26/17 03:32 Urine Creatinine 219.3 mg/dL (0.1-20.0) H 07/26/17 08:48 Urine Sodium 36 mmol/L 07/26/17 08:48 Urine Total Protein 70 mg/dL (5-11.8) H 07/26/17 08:48
--- NOTE | 2017-07-30 18:17 | Progress Note ---
Assessment and Plan Assessment and Plan Assessment and plan: Patient is a 37-year-old man originally from [facility] with a history of tobacco dependency who presented with fevers, sore throat, weight loss, abdominal pain and shortness of breath SEPSIS PNA: Infectious Disease is following, ivf and abx, follow cultures Doubt Tb. Hematology consult appreciated. Bone marrow biopsy. 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 Will discuss with ID about PCP prophylaxis. Not been ruled out for TB Oral thrush candidiasis: Treat with Diflucan Neutropenia was likely related to infection: Treat infection .Sec to HIV.Neupogen if necessary Acute kidney injury- Possible secondary to visible nephropathy. Patient received a contrast study recently also. 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 Hyponatremia: Persist possible SIADH, Nephrology following.on 2 gm Sodium tablets tid Recheck labs Severe malnutrition: consult Preparation Plant Repairer, encourage po intake Urinary retention; Maybe secondary to principal disease. Continue on flomax, urology eval outpatient of symptoms continue GERD: add PPI DVT prophylaxis: Subcutaneous Lovenox full code Plan discussed with patient. Continue isolation precaution Subjective Date of service: 07/30/17 Principal diagnosis: leukopenia, fever, thrush Interval history: Afebrile,Feeling better Objective - Constitutional Vitals: Vital Signs - 12hr 07/30/17 07/30/17 07/30/17 07:52 14:15 15:39 Temperature 98.2 F 98.8 F Pulse Rate 104 H Respiratory 14 14 Rate Blood Pressure 101/50 100/49 O2 Sat by Pulse 97 97 Oximetry General appearance: Present: no acute distress, well-nourished - EENT Eyes: PERRL, EOM intact ENT: hearing intact, clear oral mucosa Ears: bilateral: normal - Neck Neck: supple, normal ROM - Respiratory Respiratory effort: normal Respiratory: bilateral: CTA - Breasts Breasts: normal - Cardiovascular Rhythm: regular Heart Sounds: Present: S1 & S2. Absent: gallop, rub Extremities: pulses intact, No edema, normal color, Full ROM - Gastrointestinal General gastrointestinal: Present: soft, non-tender, non-distended, normal bowel sounds - Genitourinary Male genitourinary: normal - Integumentary Integumentary: clear, warm, dry - Musculoskeletal Musculoskeletal: 1, strength equal bilaterally - Neurologic Neurologic: moves all extremities - Psychiatric Psychiatric: memory intact, appropriate mood/affect, intact judgment & insight - Labs CBC & Chem 7: 07/29/17 04:31 0218 04:31 Labs: * 2v CXR reported as no acute findings * CT abd/pelvis w and w/o: IMPRESSION: There are infiltrates at the right lung base. There are no pleural effusions or pneumothoraces. There are no kidney stones. There is no hydronephrosis . There is no bowel obstruction, colitis or enteritis. The appendix is normal.. There is no ascites or free air, abscess or adenopathy.. There is a ventral hernia containing fat only. * CT chest with contrast: IMPRESSION: The heart size is normal. There is no mediastinal or hilar lymphadenopathy. The lungs are well-expanded. 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 There are infiltrates at the right lung base. There is no pulmonary nodule or mass.. There is no pleural effusion or pneumothorax.. - Imaging and cardiology Other: report reviewed, other
[2017-07-30] MEDS: TYLENOL PO PRN (18:59)
[2017-07-30] MEDS: FLOMAX PO SCH (21:25)
[2017-07-31] MEDS: BACTRIM IV SCH ×4 (01:00→22:06)
[2017-07-31] MEDS: D5W IV SCH ×4 (01:00→22:06)
--- NOTE | 2017-07-31 08:15 | Progress Note ---
Assessment and Plan Patient is a 37-year-old man originally from [place] with a history of tobacco dependency who presented with fevers, sore throat, weight loss, abdominal pain and shortness of breath SEPSIS PNA: Infectious Disease is following, ivf and abx, follow cultures Doubt Tb. Hematology consult appreciated. Bone marrow biopsy. 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 AFB Cx pending Oral thrush candidiasis: Treat with Diflucan Neutropenia was likely related to infection: Treat infection .Sec to HIV.Neupogen if necessary Acute kidney injury- Possible secondary to visible nephropathy. Patient received a contrast study recently also. We'll start on IV fluids we'll check renal ultrasound if no improvement will consult urology healthcare science specialist Hyperkalemia-corrected RLL Aspiration pneumonia: iv abx, r/o TB Tobacco dependancy: counsellors on stopping-15 MINS SPENT. 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 Continue on flomax, urology eval outpatient of symptoms continue GERD: add PPI DVT prophylaxis: Subcutaneous Lovenox full code Plan discussed with patient. Continue isolation precaution Subjective Date of service: 07/31/17 Principal diagnosis: leukopenia, fever, thrush, HIV/AIDS Interval history: No new complaint. Denies any cough, chest pain or shortness of breath Objective - Constitutional Vitals: Vital Signs - 12hr 07/30/17 07/30/17 07/31/17 21:57 22:00 00:00 Temperature 99.4 F Pulse Rate 92 H Respiratory 17 Rate Respiratory 18 Rate [denies] Blood Pressure 94/43 O2 Sat by Pulse 98 98 Oximetry 07/31/17 08:00 Temperature Pulse Rate Respiratory Rate Respiratory Rate [denies] Blood Pressure O2 Sat by Pulse 95 Oximetry General appearance: Present: no acute distress, cachectic, other (oral candidiasis) - EENT Eyes: PERRL, EOM intact - Neck Neck: supple, normal ROM - Respiratory Respiratory effort: normal Respiratory: bilateral: diminished - Cardiovascular Rhythm: regular Heart Sounds: Present: S1 & S2. Absent: gallop, rub Extremities: pulses intact, No edema, normal color, Full ROM - Gastrointestinal General gastrointestinal: Present: soft, non-tender, non-distended, normal bowel sounds - Integumentary Integumentary: clear, warm, dry - Musculoskeletal Musculoskeletal: 1, strength equal bilaterally - Neurologic Neurologic: moves all extremities - Psychiatric Psychiatric: memory intact, appropriate mood/affect, intact judgment & insight - Labs CBC & Chem 7: 07/29/17 04:31 07/29/17 04:31
--- NOTE | 2017-07-31 09:21 | Hem/Onc Progress Note ---
Assessment and Plan awaiting bmbx and labs cont to follow Subjective Date of service: 07/31/17 Interval history: pt feels fair worried about losing his wallet Objective - Constitutional Vitals: Last Vital Signs Temp 98.2 F 07/31/17 07:39 Pulse 92 H 07/30/17 21:57 Resp 19 07/31/17 07:39 BP 99/52 07/31/17 07:39 Pulse Ox 95 07/31/17 08:00 General appearance: no acute distress - Neck Neck: supple - Respiratory Respiratory effort: Positive: normal - Cardiovascular Rhythm: regular Extremities: No edema - Gastrointestinal General gastrointestinal: Present: soft
[2017-07-31] MEDS: DIFLUCAN PO SCH (09:56)
[2017-07-31] MEDS: LOVENOX SUB-Q SCH (09:56)
[2017-07-31] MEDS: MAGIC MOUTHWASH PO SCH ×3 (09:56→22:06)
[2017-07-31] MEDS: SODIUM CHLORIDE PO SCH ×3 (10:00→22:05)
[2017-07-31] MEDS: PROTONIX PO SCH (10:00)
--- NOTE | 2017-07-31 10:54 | Progress Note ---
<KATLYN ARZATE - Last Filed: 07/31/17 13:52> Assessment and Plan Assessment: 1) Sepsis: fever is better.still tachycardic and hypotensive. Etiology - pneumonia, ? PCP, ?disseminated MAC 2) RLL Pneumonia: CXR neg. CT chest + RLL inflitrate. ? influenza ? CAP ?TB ? opportunistic -CRP 2.1 -influenza antigen neg - AFB x 3 negative -TB QFR negative 3) Oral candidiasis - worsening 4) Weight loss: from HIV / AIDS 5) Newly diagnosed HIV ? unknown CD4/VL. Cryptococcal antigen neg 6) Neutropenia/thrombocytopenia: worsening. from HIV ? MAC ? malignancy ? infection? Improving 7) Hyponatremia; stable 8) Homeless 9) RADHA - better -Renal US negative 10) Advanced AIDS; CD4 =2, VL [id number] Plan: -f/u IR guided bone marrow bx for MAC, fungal, and malignancy result -hematology following -continue bactrim Iv day 4 of 21 -stop airbone precaution -continue fluconazole po day 10 of 14 days -caseworker protective services eval for half-way placement -renal following Thank you Dr Le for your consultation, will follow up with you. Katlyn Arzate NP-C for Dr. Mishel Fry MD Infectious Diseases Specialist [facility] M [phone] O [phone] Subjective Date of service: 07/31/17 Principal diagnosis: leukopenia, fever, thrush Interval history: I am so upset this morning as my cell phone is missing, no fever Microbiology: Blood cultures: 07/19 Respiratory cultures: influenza negative 07/19 Cryptococcus antigen negative Urine culture: negative Current Antimicrobials: Diflucan 07/19 Previous Antimicrobials: Vancomycin Zosyn 07/20 levaquin 07/20 tamiflu07/19 bactrim 07/19 Ceftriaoxne 07/20 Objective - Exam Narrative Exam: General appearance: Alert in NAD, conversant Eyes: anicteric sclerae, moist conjunctivae; no lid-lag; PERRLA HENT: Atraumatic; oropharynx +marked thrush Neck: Trachea midline; supple, no thyromegaly or lymphadenopathy Lungs: scattered crackles demarcus CV: RRR s1 s2 Abdomen: Soft, non-tender; no masses or hepatosplenomegaly Extremities: No peripheral edema or extremity lymphadenopathy Skin: Normal temperature, turgor and texture; no rash, ulcers or subcutaneous nodules Psych: Appropriate affect, calm and cooperative Neuro: alert and oriented x 3. Moving all extermities Lines: No CVL / PICC - Constitutional Vitals: Vital Signs Temp Pulse Resp BP Pulse Ox 98.2 F 92 H 19 99/52 95 18 07:39 07/30/17 21:57 07/31/17 07:39 07/31/17 07:39 07/31/17 08:00 Temperature -Last 24 Hours Temperature 98.2 F Temperature 99.4 F Temperature 98.8 F - Labs CBC & Chem 7: 07/29/17 04:31 07/29/17 04:31 <MISHEL ARBOLEDA - Last Filed: 07/31/17 16:21> Assessment and Plan I have personally interviewed and examined patient and agree with LOG ROPER Nballu report. Overall better, fever broke after adding bactrim IV. F/U BM biopsy. Upon discharge will do bactrim DS 2 tab po TID total 21 days> TB was ruled out. Mishel Geronimo MD Objective - Constitutional Vitals: Vital Signs Temp Pulse Resp BP Pulse Ox 98.2 F 92 H 19 99/52 95 07/31/17 07:39 07/30/17 21:57 07/31/17 07:39 07/31/17 07:39 07/31/17 08:00 Temperature -Last 24 Hours Temperature 98.2 F Temperature 99.4 F - Labs CBC & Chem 7: 07/29/17 04:31 07/29/17 04:31
--- NOTE | 2017-07-31 11:10 | Progress Note ---
Assessment and Plan - Patient Problems (1) Acute renal failure (ARF) Current Visit: Yes Status: Acute Plan to address problem: No new labs noted for today Obtain CBC and CMP Obtain daily weights Avoid Nephrotoxic agents Renally dose medications Monitor renal function closely (2) HIV (human immunodeficiency virus infection) Current Visit: Yes Status: Acute Plan to address problem: As per Infectious Disease (3) Thrush Current Visit: Yes Status: Acute Plan to address problem: On Flucanozole as per ID (4) Metabolic acidosis Current Visit: Yes Status: Acute Plan to address problem: Resolved (5) Hyponatremia Current Visit: Yes Status: Acute Plan to address problem: Stable- Sodium level 129 on last lab On Salt tablets 2 gram TID Fluid restriction of 1 liter per day (6) Pancytopenia Current Visit: Yes Status: Acute Plan to address problem: S/p CT guided Bone Marrow biopsy on 07/28/17 As per Hematology (7) Pneumonia Current Visit: Yes Status: Acute Plan to address problem: On IV Bactrim Negative for TB As per ID Subjective Date of service: 07/31/17 Principal diagnosis: leukopenia, fever, thrush Interval history: Patient seen lying in bed. TB negative. Off airborne precautions. Objective - Vital Signs Vital signs: Vital Signs - 12hr 07/31/17 07/31/17 07/31/17 00:00 07:39 08:00 Temperature 98.2 F Respiratory 19 Rate Respiratory 18 Rate [denies] Blood Pressure 99/52 O2 Sat by Pulse 95 Oximetry - General Appearance General appearance: well-developed, appears stated age EENT: ATNC, PERRL, hearing intact, vision intact Neck: no JVD, supple Respiratory: Present: Decreased Breath Sounds Cardiology: regular, S1S2 Gastrointestinal: normoactive bowel sounds Integumentary: warm and dry, other (Lips are dry) Neurologic: alert and oriented x3 Musculoskeletal: other (No edema) - Lab 07/29/17 04:31 07/29/17 04:31 Most recent lab results Calcium 7.6 mg/dL (8.4-10.2) L 07/28/17 09:03 Phosphorus 3.60 mg/dL (2.5-4.5) 07/26/17 03:32 Urine Creatinine 219.3 mg/dL (0.1-20.0) H 07/26/17 08:48 Urine Sodium 36 mmol/L 07/26/17 08:48 Urine Total Protein 70 mg/dL (5-11.8) H 07/26/17 08:48
[2017-07-31] MEDS: FLOMAX PO SCH (22:05)
[2017-08-01] MEDS: BACTRIM IV SCH ×3 (01:06→11:51)
[2017-08-01] MEDS: D5W IV SCH ×3 (01:06→11:51)
--- NOTE | 2017-08-01 09:20 | Hem/Onc Progress Note ---
Assessment and Plan Bone marrow pending. It has been sent to an outside source. I have explained to the patient that he needs to get his labs drawn for us to know where he stands. Subjective Date of service: 08/01/17 Interval history: pt feels fair worried about losing his wallet. He, according to the nurse has been refusing lab draws. Patient states that they are not able to draw labs on him. Objective - Constitutional Vitals: Last Vital Signs Temp 98.6 F 08/01/17 08:42 Pulse 86 08/01/17 08:42 Resp 16 08/01/17 08:42 BP 93/57 08/01/17 08:42 Pulse Ox 96 08/01/17 08:42 Pain Intensity (0-10): denies any pain General appearance: mild distress Performance status: 3-limited selfcare - Neck Neck: supple - Respiratory Respiratory effort: Positive: normal - Cardiovascular Rhythm: regular Extremities: No edema - Gastrointestinal General gastrointestinal: Present: soft
[2017-08-01] MEDS: MAGIC MOUTHWASH PO SCH ×3 (10:18→20:52)
[2017-08-01] MEDS: SODIUM CHLORIDE PO SCH ×3 (10:23→20:52)
[2017-08-01] MEDS: DIFLUCAN PO SCH (10:23)
[2017-08-01] MEDS: PROTONIX PO SCH (10:23)
[2017-08-01] MEDS: LOVENOX SUB-Q SCH (10:24)
--- NOTE | 2017-08-01 10:59 | Progress Note ---
Assessment and Plan Assessment: 1) Sepsis: Better. Still hypotensive. Etiology -pneumonia, ? PCP, ? disseminated MAC 2) RLL Pneumonia: CXR neg. CT chest + RLL inflitrate. ? influenza ? CAP ?TB ? opportunistic -CRP 2.1 -influenza antigen neg - AFB x 3 negative -TB QFR negative 3) Oral candidiasis - worsening 4) Weight loss: from HIV / AIDS 5) Newly diagnosed HIV ? unknown CD4/VL. Cryptococcal antigen neg 6) Neutropenia/thrombocytopenia: worsening. from HIV ? MAC ? malignancy ? infection? Improving 7) Hyponatremia; stable 8) Homeless 9) RADHA - better -Renal US negative 10) Advanced AIDS; CD4 =2, VL [id number] Plan: -f/u IR guided bone marrow bx for MAC, fungal, and malignancy result -hematology following -stop bactrim Iv -stop fluconazole -case packer eval for group home placement -renal following -Upon discharge will do bactrim DS 2 tab po TID total 21 days we will sign off Thank you Dr Le for your consultation, will follow up with you. Katlyn Arzate NP-C for Dr. Mishel Fry MD Infectious Diseases Specialist [facility] M [phone] O [phone] Subjective Date of service: 08/01/17 Principal diagnosis: leukopenia, fever, thrush, HIV/AIDS Interval history: Very sleepy, no fever Microbiology: Blood cultures: 07/19 Respiratory cultures: influenza negative 07/19 Cryptococcus antigen negative Urine culture: negative Current Antimicrobials: Diflucan 07/19 Previous Antimicrobials: Vancomycin Zosyn 07/20 levaquin 07/20 tamiflu07/19 bactrim 07/19 Ceftriaoxne 07/20 Objective - Exam Narrative Exam: General appearance: Alert in NAD, conversant Eyes: anicteric sclerae, moist conjunctivae; no lid-lag; PERRLA HENT: Atraumatic; oropharynx +marked thrush Neck: Trachea midline; supple, no thyromegaly or lymphadenopathy Lungs: scattered crackles demarcus CV: RRR s1 s2 Abdomen: Soft, non-tender; no masses or hepatosplenomegaly Extremities: No peripheral edema or extremity lymphadenopathy Skin: Normal temperature, turgor and texture; no rash, ulcers or subcutaneous nodules Psych: Appropriate affect, calm and cooperative Neuro: alert and oriented x 3. Moving all extermities Lines: No CVL / PICC - Constitutional Vitals: Vital Signs Temp Pulse Resp BP Pulse Ox 98.6 F 86 16 93/57 96 08/01/17 08:42 08/01/17 08:42 08/01/17 08:42 08/01/17 08:42 08/01/17 08:42 Temperature -Last 24 Hours Temperature 98.6 F Temperature 99.1 F Temperature 98.0 F - Labs CBC & Chem 7: 07/29/17 04:31 07/29/17 04:31
--- NOTE | 2017-08-01 12:22 | Progress Note ---
Assessment and Plan - Patient Problems (1) Acute renal failure (ARF) Current Visit: Yes Status: Acute Plan to address problem: No new labs noted for today Obtain CBC and CMP Obtain daily weights Avoid Nephrotoxic agents Renally dose medications Monitor renal function closely (2) HIV (human immunodeficiency virus infection) Current Visit: Yes Status: Acute Plan to address problem: As per Infectious Disease (3) Thrush Current Visit: Yes Status: Acute Plan to address problem: On Flucanozole as per ID (4) Metabolic acidosis Current Visit: Yes Status: Acute Plan to address problem: Resolved (5) Hyponatremia Current Visit: Yes Status: Acute Plan to address problem: Stable- Sodium level 129 on last lab On Salt tablets 2 gram TID Fluid restriction of 1 liter per day (6) Pancytopenia Current Visit: Yes Status: Acute Plan to address problem: S/p CT guided Bone Marrow biopsy on 07/28/17 As per Hematology (7) Pneumonia Current Visit: Yes Status: Acute Plan to address problem: On IV Bactrim Negative for TB As per ID Subjective Date of service: 08/01/17 Principal diagnosis: leukopenia, fever, thrush, HIV/AIDS Interval history: Patient seen lying in bed. Refusing daily labs. Objective - Vital Signs Vital signs: Vital Signs - 12hr 08/01/17 08:42 Temperature 98.6 F Pulse Rate 86 Respiratory 16 Rate Blood Pressure 93/57 O2 Sat by Pulse 96 Oximetry - General Appearance General appearance: well-developed, appears stated age EENT: ATNC, PERRL, hearing intact, vision intact Neck: no JVD, supple Respiratory: Present: Decreased Breath Sounds Cardiology: regular, S1S2 Gastrointestinal: normoactive bowel sounds Integumentary: warm and dry Neurologic: alert and oriented x3 Musculoskeletal: other (No edema) Psychiatric: cooperative - Lab 07/29/17 04:31 07/29/17 04:31 Most recent lab results Calcium 7.6 mg/dL (8.4-10.2) L 07/28/17 09:03 Phosphorus 3.60 mg/dL (2.5-4.5) 07/26/17 03:32 Urine Creatinine 219.3 mg/dL (0.1-20.0) H 07/26/17 08:48 Urine Sodium 36 mmol/L 07/26/17 08:48 Urine Total Protein 70 mg/dL (5-11.8) H 07/26/17 08:48
--- NOTE | 2017-08-01 16:33 | Progress Note ---
Hospitalist Physical - Constitutional Vitals: Temp Pulse Resp BP Pulse Ox 98.6 F 86 16 93/57 96 08/01/17 08:42 08/01/17 08:42 08/01/17 08:42 08/01/17 08:42 08/01/17 08:42 General appearance: Present: no acute distress, cachectic, other (oral candidiasis) Results - Labs CBC & Chem 7: 07/29/17 04:31 07/29/17 04:31 Labs: Laboratory Last Values WBC 1.7 K/mm3 (4.5-11.0) L* 07/29/17 04:31 RBC 4.48 M/mm3 (3.65-5.03) 07/29/17 04:31 Hgb 10.9 gm/dl (11.8-15.2) L 07/29/17 04:31 Hct 32.6 % (35.5-45.6) L 07/29/17 04:31 MCV 73 fl (84-94) L 07/29/17 04:31 MCH 24 pg (28-32) L 07/29/17 04:31 MCHC 33 % (32-34) 07/29/17 04:31 RDW 16.5 % (13.2-15.2) H 07/29/17 04:31 Plt Count 74 K/mm3 (140-440) L 07/29/17 04:31 Eos % (Auto) Cook Syrup Maker 07/29/17 04:31 Add Manual Diff Complete 07/29/17 04:31 Total Counted 50 07/29/17 04:31 Seg Neuts % (Manual) 50.0 % (40.0-70.0) 07/29/17 04:31 Band Neutrophils % 18.0 % 07/29/17 04:31 Lymphocytes % (Manual) 12.0 % (13.4-35.0) L 07/29/17 04:31 Reactive Lymphs % (Man) 0 % 07/29/17 04:31 Monocytes % (Manual) 4.0 % (0.0-7.3) 07/29/17 04:31 Eosinophils % (Manual) 16.0 % (0.0-4.3) H 07/29/17 04:31 Basophils % (Manual) 0 % (0.0-1.8) 07/29/17 04:31 Metamyelocytes % 0 % 07/29/17 04:31 Myelocytes % 0 % 07/29/17 04:31 Promyelocytes % 0 % 07/29/17 04:31 Blast Cells % 0 % 07/29/17 04:31 Nucleated RBC % Not Reportable 07/29/17 04:31 Seg Neutrophils # Man 0.9 K/mm3 (1.8-7.7) L 07/29/17 04:31 Band Neutrophils # 0.3 K/mm3 07/29/17 04:31 Abs Lymphs (Manual) 226 cells/uL (850-3900) L 07/19/17 21:20 Lymphocytes # (Manual) 0.2 K/mm3 (1.2-5.4) L 07/29/17 04:31 Abs React Lymphs (Man) 0.0 K/mm3 07/29/17 04:31 Monocytes # (Manual) 0.1 K/mm3 (0.0-0.8) 07/29/17 04:31 Eosinophils # (Manual) 0.3 K/mm3 (0.0-0.4) 07/29/17 04:31 Basophils # (Manual) 0.0 K/mm3 (0.0-0.1) 07/29/17 04:31 Metamyelocytes # 0.0 K/mm3 07/29/17 04:31 Myelocytes # 0.0 K/mm3 07/29/17 04:31 Promyelocytes # 0.0 K/mm3 07/29/17 04:31 Blast Cells # 0.0 K/mm3 07/29/17 04:31 WBC Morphology Not Reportable 07/29/17 04:31 Hypersegmented Neuts Not Reportable 07/29/17 04:31 Hyposegmented Neuts Not Reportable 07/29/17 04:31 Hypogranular Neuts Not Reportable 07/29/17 04:31 Smudge Cells Not Reportable 07/29/17 04:31 Toxic Granulation Not Reportable 07/29/17 04:31 Toxic Vacuolation Not Reportable 07/29/17 04:31 Dohle Bodies Not Reportable 07/29/17 04:31 Pelger-Huet Anomaly Not Reportable 07/29/17 04:31 Steffen Rods Not Reportable 07/29/17 04:31 Platelet Estimate Consistent w auto 07/29/17 04:31 Clumped Platelets Not Reportable 07/29/17 04:31 Plt Clumps, EDTA Not Reportable 07/29/17 04:31 Large Platelets Not Reportable 07/29/17 04:31 Giant Platelets Not Reportable 07/29/17 04:31 Platelet Satelliting Not Reportable 07/29/17 04:31 Plt Morphology Comment Not Reportable 07/29/17 04:31 RBC Morphology Not Reportable 07/29/17 04:31 Dimorphic RBCs Not Reportable 07/29/17 04:31 Polychromasia Not Reportable 07/29/17 04:31 Hypochromasia 1+ 07/29/17 04:31 Poikilocytosis Not Reportable 07/29/17 04:31 Anisocytosis 1+ 07/29/17 04:31 Microcytosis Not Reportable 07/29/17 04:31 Macrocytosis Not Reportable 07/29/17 04:31 Spherocytes Not Reportable 07/29/17 04:31 Pappenheimer Bodies Not Reportable 07/29/17 04:31 Sickle Cells Not Reportable 07/29/17 04:31 Target Cells Not Reportable 07/29/17 04:31 Tear Drop Cells Rare 07/29/17 04:31 Ovalocytes 1+ 07/29/17 04:31 Helmet Cells Not Reportable 07/29/17 04:31 Collins-Bruni Bodies Not Reportable 07/29/17 04:31 [place] Rings Not Reportable 07/29/17 04:31 Marychuy Cells Not Reportable 07/29/17 04:31 Bite Cells Not Reportable 07/29/17 04:31 Crenated Cell Not Reportable 07/29/17 04:31 Elliptocytes 1+ 07/29/17 04:31 Acanthocytes (Spur) Not Reportable 07/29/17 04:31 Rouleaux Not Reportable 07/29/17 04:31 Hemoglobin C Crystals Not Reportable 07/29/17 04:31 Schistocytes Not Reportable 07/29/17 04:31 Malaria parasites Not Reportable 07/29/17 04:31 Percent Retic 0.55 % (0.78-2.58) L 07/28/17 09:03 Ezekiel Bodies Not Reportable 07/29/17 04:31 Hem Pathologist Commnt No 07/29/17 04:31 PT 13.0 Sec. (12.2-14.9) 07/28/17 09:03 INR 0.94 (0.87-1.13) 07/28/17 09:03 APTT 32.1 Sec. (24.2-36.6) 07/28/17 09:03 Sodium 129 mmol/L (137-145) L 07/29/17 04:31 Potassium 3.9 mmol/L (3.6-5.0) 07/28/17 09:03 Chloride 92.9 mmol/L (98-107) L 07/28/17 09:03 Carbon Dioxide 22 mmol/L (22-30) 07/28/17 09:03 Anion Gap 17 mmol/L 07/28/17 09:03 BUN 15 mg/dL (9-20) 07/28/17 09:03 Creatinine 1.3 mg/dL (0.8-1.5) 07/28/17 09:03 Estimated GFR > 60 ml/min 07/28/17 09:03 BUN/Creatinine Ratio 12 % 07/28/17 09:03 Glucose 99 mg/dL (75-100) 07/28/17 09:03 Hemoglobin A1c 6.0 % (4-6) 07/20/17 05:22 Osmolality 285 Mosm/kg 07/26/17 03:32 Lactic Acid 0.50 mmol/L (0.7-2.0) L 07/19/17 21:20 Uric Acid 4.8 mg/dL (3.5-7.6) 07/27/17 10:40 Calcium 7.6 mg/dL (8.4-10.2) L 07/28/17 09:03 Phosphorus 3.60 mg/dL (2.5-4.5) 07/26/17 03:32 Iron 43 ug/dL (49-181) L 07/28/17 09:03 TIBC 170 mcg/dL (250-450) L 07/28/17 09:03 % Saturation 25.29 % 07/28/17 09:03 Transferrin 143 mg/dl (180-329) L 07/28/17 09:03 Ferritin 37385.0 ng/mL (13.0-400.0) H 07/28/17 09:03 Total Bilirubin 0.40 mg/dL (0.1-1.2) 07/20/17 05:22 Direct Bilirubin 0.2 mg/dL (0-0.2) 07/19/17 15:43 Indirect Bilirubin 0.5 mg/dL 07/19/17 15:43 AST 44 units/L (5-40) H 07/20/17 05:22 ALT 16 units/L (7-56) 07/20/17 05:22 Alkaline Phosphatase 51 units/L (35-129) 07/20/17 05:22 Lactate Dehydrogenase 577 units/L (91-180) H 07/29/17 04:31 Total Creatine Kinase 43 units/L (55-170) L 07/27/17 10:40 C-Reactive Protein 2.10 mg/dL (0.00-1.30) H 07/19/17 21:20 Total Protein 7.0 g/dL (6.3-8.2) 07/20/17 05:22 Albumin 2.8 g/dL (3.9-5) L 07/20/17 05:22 Albumin/Globulin Ratio 0.7 % 07/20/17 05:22 Vitamin B12 468.5 pg/mL (211-911) 07/28/17 09:03 Folate 8.07 ng/mL (7.3-26.0) 07/28/17 09:03 TSH 5.450 mlU/mL (0.270-4.200) H 07/26/17 03:32 Free T4 1.08 ng/dL (0.76-1.46) 07/28/17 09:03 Total Cortisol 12.8 mcg/dL () 07/28/17 09:03 Urine Color Yellow (Yellow) 07/20/17 04:00 Urine Turbidity Clear (Clear) 07/20/17 04:00 Urine pH 6.0 (5.0-7.0) 07/20/17 04:00 Ur Specific [place] 1.030 (1.003-1.030) 07/20/17 04:00 Urine Protein <15 mg/dl mg/dL (Negative) 07/20/17 04:00 Urine Glucose (UA) Neg mg/dL (Negative) 07/20/17 04:00 Urine Ketones Neg mg/dL (Negative) 07/20/17 04:00 Urine Blood Neg (Negative) 07/20/17 04:00 Urine Nitrite Neg (Negative) 07/20/17 04:00 Urine Bilirubin Neg (Negative) 07/20/17 04:00 Urine Urobilinogen 2.0 mg/dL (<2.0) 07/20/17 04:00 Ur Leukocyte Esterase Neg (Negative) 07/20/17 04:00 Urine WBC (Auto) < 1.0 /HPF (0.0-6.0) 07/20/17 04:00 Urine RBC (Auto) 1.0 /HPF (0.0-6.0) 07/20/17 04:00 Urine Eosinophils None seen (None Seen) 07/26/17 08:48 Urine Osmolality 605 Mosm/kg 07/26/17 08:48 Urine Creatinine 219.3 mg/dL (0.1-20.0) H 07/26/17 08:48 Urine Sodium 36 mmol/L 07/26/17 08:48 Urine Total Protein 70 mg/dL (5-11.8) H 07/26/17 08:48 Lymph Enumerat CD4/CD8 0.02 (0.86-5.00) L 07/19/17 21:20 % CD3 Cells 73 % (57-85) 07/19/17 21:20 Absolute CD3 Count 164 cells/uL (840-3060) L 07/19/17 21:20 % CD4 Cells 1 % (30-61) L 07/19/17 21:20 Absolute CD4 Count 2 cells/uL (490-1740) L 07/19/17 21:20 % CD8 Cells 66 % (12-42) H 07/19/17 21:20 Absolute CD8 Count 135 cells/uL (180-1170) L 07/19/17 21:20 % CD19 Cells 13 % (6-29) 07/19/17 21:20 Absolute CD19 Count 32 cells/uL (110-660) L 07/19/17 21:20 Hepatitis A IgM Ab Non-reactive (NonReactive) 07/19/17 21:20 Hep Bs Antigen Non-reactive (Negative) 07/19/17 21:20 Hep B Core IgM Ab Non-reactive (NonReactive) 07/19/17 21:20 Hepatitis C Antibody Non-reactive (NonReactive) 07/19/17 21:20 HIV DNA Qual (PCR) See scanned result 07/19/17 21:20 HIV-1 Antibody See scanned results 07/19/17 21:20 HIV-1 RNA PCR copies/ml 268177 copies/mL (<20) H 07/19/17 21:20 HIV-1 RNA (PCR) log 5.52 Log cps/mL (<1.30) H 07/19/17 21:20 HIV-2 Ab (Immunoblot) See scanned results 07/19/17 21:20 HIV 1&2 Antibody Rapid Reactive (Non React) 07/19/17 21:20 HIV P24 Antigen Non react (Non React) 07/19/17 21:20 Schistocytes Smear 1+ 07/27/17 10:02 TB (QFT) Gold In Tube Negative (Negative) 07/26/17 04:30 TB Test (QFT) Nil 1.69 IU/mL 07/26/17 04:30 TB Test Mitogen - Nil 1.11 IU/mL 07/26/17 04:30 TB Test Antigen - Nil 0.38 IU/mL 07/26/17 04:30
[2017-08-01] MEDS: FLOMAX PO SCH (22:41)
[2017-08-01] MEDS: BACTRIM DS PO SCH (22:41)
--- NOTE | 2017-08-01 23:10 | Progress Note ---
Assessment and Plan Assessment and plan: Patient is a 37-year-old man originally from [place] with a history of tobacco dependency who presented with fevers, sore throat, weight loss, abdominal pain and shortness of breath * 2v CXR reported as no acute findings * CT abd/pelvis w and w/o: IMPRESSION: There are infiltrates at the right lung base. There are no pleural effusions or pneumothoraces. There are no kidney stones. There is no hydronephrosis per. There is no bowel obstruction, colitis or enteritis. The appendix is normal.. There is no ascites or free air, abscess or adenopathy.. There is a ventral hernia containing fat only. * CT chest with contrast: IMPRESSION: The heart size is normal. There is no mediastinal or hilar lymphadenopathy. The lungs are well-expanded. 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 There are infiltrates at the right lung base. There is no pulmonary nodule or mass.. There is no pleural effusion or pneumothorax.. SEPSIS PNA: Infectious Disease is following, ivf and abx, cultures with no growth. 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 on bactrim. Oral thrush candidiasis: Treat with Diflucan Neutropenia was likely related to infection: Treated infection Acute kidney injury- Possible secondary to visible nephropathy. Resolved Hyperkalemia-corrected RLL Aspiration pneumonia: iv abx, no evdence of TB Tobacco dependancy: dianetic counselor on stopping-15 MINS SPENT. Hyponatremia: Persist possible SIADH, Nephrology following. Severe malnutrition: consult Safety Engineer Pressure Vessels, encourage po intake Urinary retention; Maybe secondary to principal disease. Continue on flomax, urology eval outpatient of symptoms continue GERD: add PPI DVT prophylaxis: Subcutaneous Lovenox full code Plan discussed with patient. History Interval history: Patient seen and examined in no acute distress this morning. Hospitalist Physical - Physical exam Narrative exam: VITAL SIGNS: Reviewed. GENERAL: The patient appeared malnourished with muscle wasting. Vital signs as documented. HEAD: No signs of head trauma. EYES: Pupils are equal. Extraocular motions intact. EARS: Hearing grossly intact. MOUTH: Oral thrush NECK: No adenopathy, no JVD. CHEST: Chest with diminished breath sounds bilaterally. No wheezes, rales, or rhonchi. CARDIAC: Regular rate and rhythm. S1 and S2, without murmurs, gallops, or rubs. VASCULAR: No Edema. Peripheral pulses normal and equal in all extremities. ABDOMEN: Soft, without detectable tenderness. No sign of distention. No rebound or guarding, and no masses palpated. Bowel Sounds normal. MUSCULOSKELETAL: Good range of motion of all major joints. Extremities without clubbing, cyanosis or edema. NEUROLOGIC EXAM: Alert and oriented x 3. No focal sensory or strength deficits. Speech normal. Follows commands. PSYCHIATRIC: Mood normal. SKIN: Some skin deformities and discoloration. - Constitutional Vitals: Temp Pulse Resp BP Pulse Ox 98.7 F 82 16 87/49 98 08/01/17 18:03 08/01/17 18:03 08/01/17 18:03 08/01/17 18:03 08/01/17 18:03 General appearance: Present: no acute distress, cachectic, other (oral candidiasis) Results - Labs CBC & Chem 7: 07/29/17 04:31 07/29/17 04:31 Labs: Laboratory Last Values WBC 1.7 K/mm3 (4.5-11.0) L* 07/29/17 04:31 RBC 4.48 M/mm3 (3.65-5.03) 07/29/17 04:31 Hgb 10.9 gm/dl (11.8-15.2) L 07/29/17 04:31 Hct 32.6 % (35.5-45.6) L 07/29/17 04:31 MCV 73 fl (84-94) L 07/29/17 04:31 MCH 24 pg (28-32) L 07/29/17 04:31 MCHC 33 % (32-34) 07/29/17 04:31 RDW 16.5 % (13.2-15.2) H 07/29/17 04:31 Plt Count 74 K/mm3 (140-440) L 07/29/17 04:31 Eos % (Auto) Bulk Station Agent 07/29/17 04:31 Add Manual Diff Complete 07/29/17 04:31 Total Counted 50 07/29/17 04:31 Seg Neuts % (Manual) 50.0 % (40.0-70.0) 07/29/17 04:31 Band Neutrophils % 18.0 % 02/03/18 04:31 Lymphocytes % (Manual) 12.0 % (13.4-35.0) L 07/29/17 04:31 Reactive Lymphs % (Man) 0 % 07/29/17 04:31 Monocytes % (Manual) 4.0 % (0.0-7.3) 07/29/17 04:31 Eosinophils % (Manual) 16.0 % (0.0-4.3) H 07/29/17 04:31 Basophils % (Manual) 0 % (0.0-1.8) 07/29/17 04:31 Metamyelocytes % 0 % 07/29/17 04:31 Myelocytes % 0 % 07/29/17 04:31 Promyelocytes % 0 % 07/29/17 04:31 Blast Cells % 0 % 07/29/17 04:31 Nucleated RBC % Not Reportable 07/29/17 04:31 Seg Neutrophils # Man 0.9 K/mm3 (1.8-7.7) L 07/29/17 04:31 Band Neutrophils # 0.3 K/mm3 07/29/17 04:31 Abs Lymphs (Manual) 226 cells/uL (850-3900) L 07/19/17 21:20 Lymphocytes # (Manual) 0.2 K/mm3 (1.2-5.4) L 07/29/17 04:31 Abs React Lymphs (Man) 0.0 K/mm3 07/29/17 04:31 Monocytes # (Manual) 0.1 K/mm3 (0.0-0.8) 07/29/17 04:31 Eosinophils # (Manual) 0.3 K/mm3 (0.0-0.4) 07/29/17 04:31 Basophils # (Manual) 0.0 K/mm3 (0.0-0.1) 07/29/17 04:31 Metamyelocytes # 0.0 K/mm3 07/29/17 04:31 Myelocytes # 0.0 K/mm3 07/29/17 04:31 Promyelocytes # 0.0 K/mm3 07/29/17 04:31 Blast Cells # 0.0 K/mm3 07/29/17 04:31 WBC Morphology Not Reportable 07/29/17 04:31 Hypersegmented Neuts Not Reportable 07/29/17 04:31 Hyposegmented Neuts Not Reportable 07/29/17 04:31 Hypogranular Neuts Not Reportable 07/29/17 04:31 Smudge Cells Not Reportable 07/29/17 04:31 Toxic Granulation Not Reportable 07/29/17 04:31 Toxic Vacuolation Not Reportable 07/29/17 04:31 Dohle Bodies Not Reportable 07/29/17 04:31 Pelger-Huet Anomaly Not Reportable 07/29/17 04:31 Steffen Rods Not Reportable 07/29/17 04:31 Platelet Estimate Consistent w auto 07/29/17 04:31 Clumped Platelets Not Reportable 07/29/17 04:31 Plt Clumps, EDTA Not Reportable 07/29/17 04:31 Large Platelets Not Reportable 07/29/17 04:31 Giant Platelets Not Reportable 07/29/17 04:31 Platelet Satelliting Not Reportable 07/29/17 04:31 Plt Morphology Comment Not Reportable 07/29/17 04:31 RBC Morphology Not Reportable 07/29/17 04:31 Dimorphic RBCs Not Reportable 07/29/17 04:31 Polychromasia Not Reportable 07/29/17 04:31 Hypochromasia 1+ 07/29/17 04:31 Poikilocytosis Not Reportable 07/29/17 04:31 Anisocytosis 1+ 07/29/17 04:31 Microcytosis Not Reportable 07/29/17 04:31 Macrocytosis Not Reportable 07/29/17 04:31 Spherocytes Not Reportable 07/29/17 04:31 Pappenheimer Bodies Not Reportable 07/29/17 04:31 Sickle Cells Not Reportable 07/29/17 04:31 Target Cells Not Reportable 07/29/17 04:31 Tear Drop Cells Rare 07/29/17 04:31 Ovalocytes 1+ 07/29/17 04:31 Helmet Cells Not Reportable 07/29/17 04:31 Collins-Casa Bodies Not Reportable 07/29/17 04:31 [place] Rings Not Reportable 07/29/17 04:31 Marychuy Cells Not Reportable 07/29/17 04:31 Bite Cells Not Reportable 07/29/17 04:31 Crenated Cell Not Reportable 07/29/17 04:31 Elliptocytes 1+ 07/29/17 04:31 Acanthocytes (Spur) Not Reportable 07/29/17 04:31 Rouleaux Not Reportable 07/29/17 04:31 Hemoglobin C Crystals Not Reportable 07/29/17 04:31 Schistocytes Not Reportable 07/29/17 04:31 Malaria parasites Not Reportable 07/29/17 04:31 Percent Retic 0.55 % (0.78-2.58) L 07/28/17 09:03 Ezekiel Bodies Not Reportable 07/29/17 04:31 Hem Pathologist Commnt No 07/29/17 04:31 PT 13.0 Sec. (12.2-14.9) 07/28/17 09:03 INR 0.94 (0.87-1.13) 07/28/17 09:03 APTT 32.1 Sec. (24.2-36.6) 07/28/17 09:03 Sodium 129 mmol/L (137-145) L 07/29/17 04:31 Potassium 3.9 mmol/L (3.6-5.0) 07/28/17 09:03 Chloride 92.9 mmol/L (98-107) L 07/28/17 09:03 Carbon Dioxide 22 mmol/L (22-30) 07/28/17 09:03 Anion Gap 17 mmol/L 07/28/17 09:03 BUN 15 mg/dL (9-20) 07/28/17 09:03 Creatinine 1.3 mg/dL (0.8-1.5) 07/28/17 09:03 Estimated GFR > 60 ml/min 07/28/17 09:03 BUN/Creatinine Ratio 12 % 07/28/17 09:03 Glucose 99 mg/dL (75-100) 07/28/17 09:03 Hemoglobin A1c 6.0 % (4-6) 07/20/17 05:22 Osmolality 285 Mosm/kg 07/26/17 03:32 Lactic Acid 0.50 mmol/L (0.7-2.0) L 07/19/17 21:20 Uric Acid 4.8 mg/dL (3.5-7.6) 07/27/17 10:40 Calcium 7.6 mg/dL (8.4-10.2) L 07/28/17 09:03 Phosphorus 3.60 mg/dL (2.5-4.5) 07/26/17 03:32 Iron 43 ug/dL (49-181) L 07/28/17 09:03 TIBC 170 mcg/dL (250-450) L 07/28/17 09:03 % Saturation 25.29 % 07/28/17 09:03 Transferrin 143 mg/dl (180-329) L 07/28/17 09:03 Ferritin 60086.0 ng/mL (13.0-400.0) H 07/28/17 09:03 Total Bilirubin 0.40 mg/dL (0.1-1.2) 07/20/17 05:22 Direct Bilirubin 0.2 mg/dL (0-0.2) 07/19/17 15:43 Indirect Bilirubin 0.5 mg/dL 07/19/17 15:43 AST 44 units/L (5-40) H 07/20/17 05:22 ALT 16 units/L (7-56) 07/20/17 05:22 Alkaline Phosphatase 51 units/L (35-129) 07/20/17 05:22 Lactate Dehydrogenase 577 units/L (91-180) H 07/29/17 04:31 Total Creatine Kinase 43 units/L (55-170) L 07/27/17 10:40 C-Reactive Protein 2.10 mg/dL (0.00-1.30) H 07/19/17 21:20 Total Protein 7.0 g/dL (6.3-8.2) 07/20/17 05:22 Albumin 2.8 g/dL (3.9-5) L 07/20/17 05:22 Albumin/Globulin Ratio 0.7 % 07/20/17 05:22 Vitamin B12 468.5 pg/mL (211-911) 07/28/17 09:03 Folate 8.07 ng/mL (7.3-26.0) 07/28/17 09:03 TSH 5.450 mlU/mL (0.270-4.200) H 07/26/17 03:32 Free T4 1.08 ng/dL (0.76-1.46) 07/28/17 09:03 Total Cortisol 12.8 mcg/dL () 07/28/17 09:03 Urine Color Yellow (Yellow) 07/20/17 04:00 Urine Turbidity Clear (Clear) 07/20/17 04:00 Urine pH 6.0 (5.0-7.0) 07/20/17 04:00 Ur Specific [place] 1.030 (1.003-1.030) 07/20/17 04:00 Urine Protein <15 mg/dl mg/dL (Negative) 07/20/17 04:00 Urine Glucose (UA) Neg mg/dL (Negative) 07/20/17 04:00 Urine Ketones Neg mg/dL (Negative) 07/20/17 04:00 Urine Blood Neg (Negative) 07/20/17 04:00 Urine Nitrite Neg (Negative) 07/20/17 04:00 Urine Bilirubin Neg (Negative) 07/20/17 04:00 Urine Urobilinogen 2.0 mg/dL (<2.0) 07/20/17 04:00 Ur Leukocyte Esterase Neg (Negative) 07/20/17 04:00 Urine WBC (Auto) < 1.0 /HPF (0.0-6.0) 07/20/17 04:00 Urine RBC (Auto) 1.0 /HPF (0.0-6.0) 07/20/17 04:00 Urine Eosinophils None seen (None Seen) 07/26/17 08:48 Urine Osmolality 605 Mosm/kg 07/26/17 08:48 Urine Creatinine 219.3 mg/dL (0.1-20.0) H 07/26/17 08:48 Urine Sodium 36 mmol/L 07/26/17 08:48 Urine Total Protein 70 mg/dL (5-11.8) H 07/26/17 08:48 Lymph Enumerat CD4/CD8 0.02 (0.86-5.00) L 07/19/17 21:20 % CD3 Cells 73 % (57-85) 07/19/17 21:20 Absolute CD3 Count 164 cells/uL (840-3060) L 07/19/17 21:20 % CD4 Cells 1 % (30-61) L 07/19/17 21:20 Absolute CD4 Count 2 cells/uL (490-1740) L 07/19/17 21:20 % CD8 Cells 66 % (12-42) H 07/19/17 21:20 Absolute CD8 Count 135 cells/uL (180-1170) L 07/19/17 21:20 % CD19 Cells 13 % (6-29) 07/19/17 21:20 Absolute CD19 Count 32 cells/uL (110-660) L 07/19/17 21:20 Hepatitis A IgM Ab Non-reactive (NonReactive) 07/19/17 21:20 Hep Bs Antigen Non-reactive (Negative) 07/19/17 21:20 Hep B Core IgM Ab Non-reactive (NonReactive) 07/19/17 21:20 Hepatitis C Antibody Non-reactive (NonReactive) 07/19/17 21:20 HIV DNA Qual (PCR) See scanned result 07/19/17 21:20 HIV-1 Antibody See scanned results 07/19/17 21:20 HIV-1 RNA PCR copies/ml 477130 copies/mL (<20) H 07/19/17 21:20 HIV-1 RNA (PCR) log 5.52 Log cps/mL (<1.30) H 07/19/17 21:20 HIV-2 Ab (Immunoblot) See scanned results 07/19/17 21:20 HIV 1&2 Antibody Rapid Reactive (Non React) 07/19/17 21:20 HIV P24 Antigen Non react (Non React) 07/19/17 21:20 Schistocytes Smear 1+ 07/27/17 10:02 TB (QFT) Gold In Tube Negative (Negative) 07/26/17 04:30 TB Test (QFT) Nil 1.69 IU/mL 07/26/17 04:30 TB Test Mitogen - Nil 1.11 IU/mL 07/26/17 04:30 TB Test Antigen - Nil 0.38 IU/mL 07/26/17 04:30
[2017-08-02] MEDS: BACTRIM DS PO SCH ×3 (06:27→21:50)
[2017-08-02] MEDS: SODIUM CHLORIDE PO SCH ×3 (08:00→20:40)
[2017-08-02] MEDS: MAGIC MOUTHWASH PO SCH ×3 (08:00→20:39)
[2017-08-02 08:14] LABS: Hematocrit 32.5 % (35.5-45.6); Hemoglobin 10.7 gm/dl (11.8-15.2); Mean Corpuscular HGB Conc 33 % (32-34); Mean Corpuscular Volume 73 fl (84-94); Red Blood Count 4.43 M/mm3 (3.65-5.03); Red Cell Distribution Width 16.4 % (13.2-15.2)
[2017-08-02 08:21] LABS: Mean Corpuscular Hemoglobin 24 pg (28-32)
[2017-08-02 08:42] LABS: BUN/Creatinine Ratio 9; Blood Urea Nitrogen 11 mg/dL (9-20); Calcium 8.2 mg/dL (8.4-10.2); Hemolysis Index 1
[2017-08-02 09:13] LABS: Anisocytosis 2+; Basophils % (Manual) 0 % (0.0-1.8); Hypochromasia 1+; Ovalocytes 2+; Platelet Estimate Consistent w Auto; Schistocytes 1+; Total Cells Counted 100
[2017-08-02 09:14] LABS: Platelet Count 129 K/mm3 (140-440)
--- NOTE | 2017-08-02 09:38 | Hem/Onc Progress Note ---
Assessment and Plan cbC improved. Awaiting final bone marrow pathology. We will discuss with pathologist. Continue supportive care Subjective Date of service: 08/02/17 Interval history: pt feels fair worried about losing his wallet. Feels better. He is off isolation. Objective - Exam Narrative Exam: Looks better - Constitutional Vitals: Last Vital Signs Temp 98.0 F 08/02/17 07:11 Pulse 82 08/02/17 07:11 Resp 16 08/02/17 07:11 BP 91/51 08/02/17 07:11 Pulse Ox 100 08/02/17 07:11 Pain Intensity (0-10): denies any pain General appearance: no acute distress - Neck Neck: supple - Respiratory Respiratory: bilateral: diminished - Cardiovascular Rhythm: regular Extremities: No edema - Gastrointestinal General gastrointestinal: Present: soft - Labs Lab Results: Laboratory Results - last 24 hr 08/02/17 08/02/17 08/02/17 07:44 07:44 07:44 WBC 2.0 L RBC 4.43 Hgb 10.7 L Hct 32.5 L MCV 73 L MCH 24 L MCHC 33 RDW 16.4 H Plt Count 129 L Eos % (Auto) Check Grader Add Manual Diff Complete Total Counted 100 Seg Neutrophils % Check Grader Seg Neuts % (Manual) 15.0 L Band Neutrophils % 2.0 Lymphocytes % (Manual) 18.0 Reactive Lymphs % (Man) 0 Monocytes % (Manual) 11.0 H Eosinophils % (Manual) 53.0 H Basophils % (Manual) 0 Metamyelocytes % 1.0 Myelocytes % 0 Promyelocytes % 0 Blast Cells % 0 Nucleated RBC % Not Reportable Seg Neutrophils # Man 0.3 L Band Neutrophils # 0.0 Lymphocytes # (Manual) 0.4 L Abs React Lymphs (Man) 0.0 Monocytes # (Manual) 0.2 Eosinophils # (Manual) 1.1 H Basophils # (Manual) 0.0 Metamyelocytes # 0.0 Myelocytes # 0.0 Promyelocytes # 0.0 Blast Cells # 0.0 WBC Morphology Not Reportable Hypersegmented Neuts Not Reportable Hyposegmented Neuts Not Reportable Hypogranular Neuts Not Reportable Smudge Cells Not Reportable Toxic Granulation Not Reportable Toxic Vacuolation Not Reportable Dohle Bodies Not Reportable Pelger-Huet Anomaly Not Reportable Steffen Rods Not Reportable Platelet Estimate Consistent w auto Clumped Platelets Not Reportable Plt Clumps, EDTA Not Reportable Large Platelets Not Reportable Giant Platelets Not Reportable Platelet Satelliting Not Reportable Plt Morphology Comment Not Reportable RBC Morphology Not Reportable Dimorphic RBCs Not Reportable Polychromasia Not Reportable Hypochromasia 1+ Poikilocytosis Not Reportable Anisocytosis 2+ Microcytosis Not Reportable Macrocytosis Not Reportable Spherocytes Not Reportable Pappenheimer Bodies Not Reportable Sickle Cells Not Reportable Target Cells Not Reportable Tear Drop Cells Not Reportable Ovalocytes 2+ Helmet Cells Not Reportable [place] Bodies Not Reportable [place] Rings Not Reportable [place] Cells Not Reportable Bite Cells Not Reportable Crenated Cell Not Reportable Elliptocytes Not Reportable Acanthocytes (Spur) Not Reportable Rouleaux Not Reportable Hemoglobin C Crystals Not Reportable Schistocytes 1+ Malaria parasites Not Reportable Ezekiel Bodies Not Reportable Hem Pathologist Commnt No Sodium 131 L Potassium 4.6 Chloride 94.6 L Carbon Dioxide 21 L Anion Gap 20 BUN 11 Creatinine 1.2 Estimated GFR > 60 BUN/Creatinine Ratio 9 Glucose 97 Calcium 8.2 L Lactate Dehydrogenase 395 H
[2017-08-02] MEDS: LOVENOX SUB-Q SCH (10:46)
[2017-08-02] MEDS: PROTONIX PO SCH (10:48)
--- NOTE | 2017-08-02 10:48 | Progress Note ---
Assessment and Plan Assessment: 1) Sepsis: Better. Still hypotensive. Etiology -pneumonia, ? PCP, ? disseminated MAC 2) RLL Pneumonia: CXR neg. CT chest + RLL inflitrate. ? influenza ? CAP ?TB ? opportunistic -CRP 2.1 -influenza antigen neg - AFB x 3 negative -TB QFR negative 3) Oral candidiasis - better 4) Weight loss: from HIV / AIDS 5) Newly diagnosed HIV ? unknown CD4/VL. Cryptococcal antigen neg 6) Neutropenia/thrombocytopenia: resolving from HIV ? MAC ? malignancy ? infection? Improving 7) Hyponatremia; stable 8) Homeless 9) RADHA - better -Renal US negative 10) Advanced AIDS; CD4 =2, VL [id number] Plan: -f/u IR guided bone marrow bx for MAC, fungal, and malignancy result -hematology following -nurse outreach case manager eval for alf placement -renal following -Upon discharge will do bactrim DS 2 tab po TID total 21 days until 08/09 and bactrim DS 1 tap po daily until CD 4 greater than 200 -start azithromycin 1200 mg po weekly until CD 4 is greater than [address] Le for your consultation, will follow up with you. Katlyn Arzate NP-C for Dr. Mishel Fry MD Infectious Diseases Specialist [facility] M [phone] O [phone] Subjective Date of service: 08/02/17 Principal diagnosis: leukopenia, fever, thrush, HIV/AIDS Interval history: sitting up in the chair eating breakfast and stated that he feels better today than he had felt in a long time, no fever Microbiology: Blood cultures: 07/19 Respiratory cultures: influenza negative 07/19 Cryptococcus antigen negative Urine culture: negative Current Antimicrobials: Diflucan 07/19 Previous Antimicrobials: Vancomycin Zosyn 07/20 levaquin 07/20 tamiflu07/19 bactrim 07/19 Ceftriaoxne 07/20 Objective - Exam Narrative Exam: General appearance: Alert in NAD, conversant Eyes: anicteric sclerae, moist conjunctivae; no lid-lag; PERRLA HENT: Atraumatic; oropharynx +marked thrush Neck: Trachea midline; supple, no thyromegaly or lymphadenopathy Lungs: scattered crackles demarcus CV: RRR s1 s2 Abdomen: Soft, non-tender; no masses or hepatosplenomegaly Extremities: No peripheral edema or extremity lymphadenopathy Skin: Normal temperature, turgor and texture; no rash, ulcers or subcutaneous nodules Psych: Appropriate affect, calm and cooperative Neuro: alert and oriented x 3. Moving all extermities Lines: No CVL / PICC - Constitutional Vitals: Vital Signs Temp Pulse Resp BP Pulse Ox 98.0 F 82 16 91/51 100 08/02/17 07:11 08/02/17 07:11 08/02/17 07:11 08/02/17 07:11 08/02/17 07:11 Temperature -Last 24 Hours Temperature 98.0 F Temperature 98.4 F Temperature 98.7 F - Labs CBC & Chem 7: 08/02/17 07:44 08/02/17 07:44 Labs: Abnormal lab results 08/02/17 08/02/17 08/02/17 Range/Units 07:44 07:44 07:44 WBC 2.0 L (4.5-11.0) K/mm3 Hgb 10.7 L (11.8-15.2) gm/dl Hct 32.5 L (35.5-45.6) % MCV 73 L (84-94) fl MCH 24 L (28-32) pg RDW 16.4 H (13.2-15.2) % Plt Count 129 L (140-440) K/mm3 Seg Neuts % (Manual) 15.0 L (40.0-70.0) % Monocytes % (Manual) 11.0 H (0.0-7.3) % Eosinophils % (Manual) 53.0 H (0.0-4.3) % Seg Neutrophils # Man 0.3 L (1.8-7.7) K/mm3 Lymphocytes # (Manual) 0.4 L (1.2-5.4) K/mm3 Eosinophils # (Manual) 1.1 H (0.0-0.4) K/mm3 Sodium 131 L (137-145) mmol/L Chloride 94.6 L (98-107) mmol/L Carbon Dioxide 21 L (22-30) mmol/L Calcium 8.2 L (8.4-10.2) mg/dL Lactate Dehydrogenase 395 H (91-180) units/L
--- NOTE | 2017-08-02 13:06 | Progress Note ---
Assessment and Plan - Patient Problems (1) Acute renal failure (ARF) Current Visit: Yes Status: Acute Plan to address problem: Renal labs reviewed. Serum creatinine 1.2, stable. Avoid Nephrotoxic agents Renally dose medications Monitor I/O's Encouraged po hydration We will sign off. Please reconsult if need us. (2) HIV (human immunodeficiency virus infection) Current Visit: Yes Status: Acute Plan to address problem: Per ID-"Upon discharge will do bactrim DS 2 tab po TID total 21 days until and bactrim DS 1 tap po daily until CD 4 greater than 200 "Start Azithromycin 1200 mg po weekly until CD 4 is greater than 200" As per Infectious Disease (3) Thrush Current Visit: Yes Status: Acute Plan to address problem: S/P Flucanozole treatment per ID (4) Hyponatremia Current Visit: Yes Status: Acute Plan to address problem: Stable- Sodium level 131 today On Salt tablets 2 gram TID Fluid restriction of 1 liter per day (5) Pancytopenia Current Visit: Yes Status: Acute Plan to address problem: S/p CT guided Bone Marrow biopsy on 07/28/17 As per Hematology (6) Pneumonia Current Visit: Yes Status: Acute Plan to address problem: On IV Bactrim Negative for TB As per ID Subjective Date of service: 08/02/17 Principal diagnosis: leukopenia, fever, thrush, HIV/AIDS Interval history: Awake and alert. No new events overnight. Objective - Vital Signs Vital signs: Vital Signs - 12hr 08/02/17 08/02/17 07:11 12:31 Temperature 98.0 F Pulse Rate 82 Respiratory 16 Rate Blood Pressure 91/51 O2 Sat by Pulse 100 96 Oximetry - General Appearance General appearance: well-developed, appears stated age EENT: ATNC, PERRL, hearing intact, vision intact Neck: no JVD, supple Respiratory: Present: Clear to Ascultation Cardiology: regular, S1S2 Gastrointestinal: normoactive bowel sounds Integumentary: warm and dry Neurologic: alert and oriented x3 Musculoskeletal: other (No edema) Psychiatric: cooperative - Lab 08/02/17 07:44 08/02/17 07:44 Most recent lab results Calcium 8.2 mg/dL (8.4-10.2) L 08/02/17 07:44 Phosphorus 3.60 mg/dL (2.5-4.5) 07/26/17 03:32 Urine Creatinine 219.3 mg/dL (0.1-20.0) H 07/26/17 08:48 Urine Sodium 36 mmol/L 07/26/17 08:48 Urine Total Protein 70 mg/dL (5-11.8) H 07/26/17 08:48
--- NOTE | 2017-08-02 15:41 | Progress Note ---
Assessment and Plan Assessment and plan: Patient is a 37-year-old man originally from [place] with a history of tobacco dependency who presented with fevers, sore throat, weight loss, abdominal pain and shortness of breath * 2v CXR reported as no acute findings * CT abd/pelvis w and w/o: IMPRESSION: There are infiltrates at the right lung base. There are no pleural effusions or pneumothoraces. There are no kidney stones. There is no hydronephrosis per. There is no bowel obstruction, colitis or enteritis. The appendix is normal.. There is no ascites or free air, abscess or adenopathy.. There is a ventral hernia containing fat only. * CT chest with contrast: IMPRESSION: The heart size is normal. There is no mediastinal or hilar lymphadenopathy. The lungs are well-expanded. 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 There are infiltrates at the right lung base. There is no pulmonary nodule or mass.. There is no pleural effusion or pneumothorax.. SEPSIS PNA: Infectious Disease is following, ivf and abx, cultures with no growth. 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 on bactrim. Oral thrush candidiasis: Treat with Diflucan Neutropenia was likely related to infection: Treated infection Acute kidney injury- Possible secondary to visible nephropathy. Resolved Hyperkalemia-corrected RLL Aspiration pneumonia: iv abx, no evidence of TB Tobacco dependancy: public relations counselor on stopping-15 MINS SPENT. Hyponatremia: Persist possible SIADH, Nephrology following. Severe malnutrition: consult Forest Officer, encourage po intake Urinary retention; Maybe secondary to principal disease. Continue on flomax, urology eval outpatient of symptoms continue GERD: add PPI Thrombocytopenia: Stable DVT prophylaxis: Subcutaneous Lovenox full code Plan discussed with patient. Pathology reports. History Interval history: Patient seen and examined in no acute distress this morning. He reports ambulating with improvement in previously noted leg pain. still unable to stand and urinate but does that well without difficulty while sitting. Hospitalist Physical - Physical exam Narrative exam: VITAL SIGNS: Reviewed. GENERAL: The patient appeared malnourished with muscle wasting. Vital signs as documented. HEAD: No signs of head trauma. EYES: Pupils are equal. Extraocular motions intact. EARS: Hearing grossly intact. MOUTH: Oral thrush NECK: No adenopathy, no JVD. CHEST: Chest with diminished breath sounds bilaterally. No wheezes, rales, or rhonchi. CARDIAC: Regular rate and rhythm. S1 and S2, without murmurs, gallops, or rubs. VASCULAR: No Edema. Peripheral pulses normal and equal in all extremities. ABDOMEN: Soft, without detectable tenderness. No sign of distention. No rebound or guarding, and no masses palpated. Bowel Sounds normal. MUSCULOSKELETAL: Good range of motion of all major joints. Extremities without clubbing, cyanosis or edema. NEUROLOGIC EXAM: Alert and oriented x 3. No focal sensory or strength deficits. Speech normal. Follows commands. PSYCHIATRIC: Mood normal. SKIN: Some skin deformities and discoloration. - Constitutional Vitals: Temp Pulse Resp BP Pulse Ox 98.0 F 82 16 91/51 96 08/02/17 07:11 08/02/17 07:11 08/02/17 07:11 08/02/17 07:11 08/02/17 12:31 General appearance: Present: no acute distress, cachectic, other (oral candidiasis) Results - Labs CBC & Chem 7: 08/02/17 07:44 08/02/17 07:44 Labs: Laboratory Last Values WBC 2.0 K/mm3 (4.5-11.0) L 08/02/17 07:44 RBC 4.43 M/mm3 (3.65-5.03) 08/02/17 07:44 Hgb 10.7 gm/dl (11.8-15.2) L 08/02/17 07:44 Hct 32.5 % (35.5-45.6) L 08/02/17 07:44 MCV 73 fl (84-94) L 08/02/17 07:44 MCH 24 pg (28-32) L 08/02/17 07:44 MCHC 33 % (32-34) 08/02/17 07:44 RDW 16.4 % (13.2-15.2) H 08/02/17 07:44 Plt Count 129 K/mm3 (140-440) L 08/02/17 07:44 Eos % (Auto) Sap Pp Consultant 08/02/17 07:44 Add Manual Diff Complete 08/02/17 07:44 Total Counted 100 08/02/17 07:44 Seg Neutrophils % Sap Pp Consultant 08/02/17 07:44 Seg Neuts % (Manual) 15.0 % (40.0-70.0) L 08/02/17 07:44 Band Neutrophils % 2.0 % 08/02/17 07:44 Lymphocytes % (Manual) 18.0 % (13.4-35.0) 08/02/17 07:44 Reactive Lymphs % (Man) 0 % 08/02/17 07:44 Monocytes % (Manual) 11.0 % (0.0-7.3) H 08/02/17 07:44 Eosinophils % (Manual) 53.0 % (0.0-4.3) H 08/02/17 07:44 Basophils % (Manual) 0 % (0.0-1.8) 08/02/17 07:44 Metamyelocytes % 1.0 % 08/02/17 07:44 Myelocytes % 0 % 08/02/17 07:44 Promyelocytes % 0 % 08/02/17 07:44 Blast Cells % 0 % 08/02/17 07:44 Nucleated RBC % Not Reportable 08/02/17 07:44 Seg Neutrophils # Man 0.3 K/mm3 (1.8-7.7) L 08/02/17 07:44 Band Neutrophils # 0.0 K/mm3 08/02/17 07:44 Abs Lymphs (Manual) 226 cells/uL (850-3900) L 07/19/17 21:20 Lymphocytes # (Manual) 0.4 K/mm3 (1.2-5.4) L 08/02/17 07:44 Abs React Lymphs (Man) 0.0 K/mm3 08/02/17 07:44 Monocytes # (Manual) 0.2 K/mm3 (0.0-0.8) 08/02/17 07:44 Eosinophils # (Manual) 1.1 K/mm3 (0.0-0.4) H 08/02/17 07:44 Basophils # (Manual) 0.0 K/mm3 (0.0-0.1) 08/02/17 07:44 Metamyelocytes # 0.0 K/mm3 08/02/17 07:44 Myelocytes # 0.0 K/mm3 08/02/17 07:44 Promyelocytes # 0.0 K/mm3 08/02/17 07:44 Blast Cells # 0.0 K/mm3 08/02/17 07:44 WBC Morphology Not Reportable 08/02/17 07:44 Hypersegmented Neuts Not Reportable 08/02/17 07:44 Hyposegmented Neuts Not Reportable 08/02/17 07:44 Hypogranular Neuts Not Reportable 08/02/17 07:44 Smudge Cells Not Reportable 08/02/17 07:44 Toxic Granulation Not Reportable 08/02/17 07:44 Toxic Vacuolation Not Reportable 08/02/17 07:44 Dohle Bodies Not Reportable 08/02/17 07:44 Pelger-Huet Anomaly Not Reportable 08/02/17 07:44 Steffen Rods Not Reportable 08/02/17 07:44 Platelet Estimate Consistent w auto 08/02/17 07:44 Clumped Platelets Not Reportable 08/02/17 07:44 Plt Clumps, EDTA Not Reportable 08/02/17 07:44 Large Platelets Not Reportable 08/02/17 07:44 Giant Platelets Not Reportable 08/02/17 07:44 Platelet Satelliting Not Reportable 08/02/17 07:44 Plt Morphology Comment Not Reportable 08/02/17 07:44 RBC Morphology Not Reportable 08/02/17 07:44 Dimorphic RBCs Not Reportable 08/02/17 07:44 Polychromasia Not Reportable 08/02/17 07:44 Hypochromasia 1+ 08/02/17 07:44 Poikilocytosis Not Reportable 08/02/17 07:44 Anisocytosis 2+ 08/02/17 07:44 Microcytosis Not Reportable 08/02/17 07:44 Macrocytosis Not Reportable 08/02/17 07:44 Spherocytes Not Reportable 08/02/17 07:44 Pappenheimer Bodies Not Reportable 08/02/17 07:44 Sickle Cells Not Reportable 08/02/17 07:44 Target Cells Not Reportable 08/02/17 07:44 Tear Drop Cells Not Reportable 08/02/17 07:44 Ovalocytes 2+ 08/02/17 07:44 Helmet Cells Not Reportable 08/02/17 07:44 Collins-Orion Bodies Not Reportable 08/02/17 07:44 [place] Rings Not Reportable 08/02/17 07:44 Hartman Cells Not Reportable 08/02/17 07:44 Bite Cells Not Reportable 08/02/17 07:44 Crenated Cell Not Reportable 08/02/17 07:44 Elliptocytes Not Reportable 08/02/17 07:44 Acanthocytes (Spur) Not Reportable 08/02/17 07:44 Rouleaux Not Reportable 08/02/17 07:44 Hemoglobin C Crystals Not Reportable 08/02/17 07:44 Schistocytes 1+ 08/02/17 07:44 Malaria parasites Not Reportable 08/02/17 07:44 Percent Retic 0.55 % (0.78-2.58) L 07/28/17 09:03 Ezekiel Bodies Not Reportable 08/02/17 07:44 Hem Pathologist Commnt No 08/02/17 07:44 PT 13.0 Sec. (12.2-14.9) 07/28/17 09:03 INR 0.94 (0.87-1.13) 07/28/17 09:03 APTT 32.1 Sec. (24.2-36.6) 07/28/17 09:03 Sodium 131 mmol/L (137-145) L 08/02/17 07:44 Potassium 4.6 mmol/L (3.6-5.0) 08/02/17 07:44 Chloride 94.6 mmol/L (98-107) L 08/02/17 07:44 Carbon Dioxide 21 mmol/L (22-30) L 08/02/17 07:44 Anion Gap 20 mmol/L 08/02/17 07:44 BUN 11 mg/dL (9-20) 08/02/17 07:44 Creatinine 1.2 mg/dL (0.8-1.5) 08/02/17 07:44 Estimated GFR > 60 ml/min 08/02/17 07:44 BUN/Creatinine Ratio 9 % 08/02/17 07:44 Glucose 97 mg/dL (75-100) 08/02/17 07:44 Hemoglobin A1c 6.0 % (4-6) 07/20/17 05:22 Osmolality 285 Mosm/kg 07/26/17 03:32 Lactic Acid 0.50 mmol/L (0.7-2.0) L 07/19/17 21:20 Uric Acid 4.8 mg/dL (3.5-7.6) 07/27/17 10:40 Calcium 8.2 mg/dL (8.4-10.2) L 08/02/17 07:44 Phosphorus 3.60 mg/dL (2.5-4.5) 07/26/17 03:32 Iron 43 ug/dL (49-181) L 07/28/17 09:03 TIBC 170 mcg/dL (250-450) L 07/28/17 09:03 % Saturation 25.29 % 07/28/17 09:03 Transferrin 143 mg/dl (180-329) L 07/28/17 09:03 Ferritin 92661.0 ng/mL (13.0-400.0) H 07/28/17 09:03 Total Bilirubin 0.40 mg/dL (0.1-1.2) 07/20/17 05:22 Direct Bilirubin 0.2 mg/dL (0-0.2) 07/19/17 15:43 Indirect Bilirubin 0.5 mg/dL 07/19/17 15:43 AST 44 units/L (5-40) H 07/20/17 05:22 ALT 16 units/L (7-56) 07/20/17 05:22 Alkaline Phosphatase 51 units/L (35-129) 07/20/17 05:22 Lactate Dehydrogenase 395 units/L (91-180) H 08/02/17 07:44 Total Creatine Kinase 43 units/L (55-170) L 07/27/17 10:40 C-Reactive Protein 2.10 mg/dL (0.00-1.30) H 07/19/17 21:20 Total Protein 7.0 g/dL (6.3-8.2) 07/20/17 05:22 Albumin 2.8 g/dL (3.9-5) L 07/20/17 05:22 Albumin/Globulin Ratio 0.7 % 07/20/17 05:22 Vitamin B12 468.5 pg/mL (211-911) 07/28/17 09:03 Folate 8.07 ng/mL (7.3-26.0) 07/28/17 09:03 TSH 5.450 mlU/mL (0.270-4.200) H 07/26/17 03:32 Free T4 1.08 ng/dL (0.76-1.46) 07/28/17 09:03 Total Cortisol 12.8 mcg/dL () 07/28/17 09:03 Urine Color Yellow (Yellow) 07/20/17 04:00 Urine Turbidity Clear (Clear) 07/20/17 04:00 Urine pH 6.0 (5.0-7.0) 07/20/17 04:00 Ur Specific [place] 1.030 (1.003-1.030) 07/20/17 04:00 Urine Protein <15 mg/dl mg/dL (Negative) 07/20/17 04:00 Urine Glucose (UA) Neg mg/dL (Negative) 07/20/17 04:00 Urine Ketones Neg mg/dL (Negative) 07/20/17 04:00 Urine Blood Neg (Negative) 07/20/17 04:00 Urine Nitrite Neg (Negative) 07/20/17 04:00 Urine Bilirubin Neg (Negative) 07/20/17 04:00 Urine Urobilinogen 2.0 mg/dL (<2.0) 07/20/17 04:00 Ur Leukocyte Esterase Neg (Negative) 07/20/17 04:00 Urine WBC (Auto) < 1.0 /HPF (0.0-6.0) 07/20/17 04:00 Urine RBC (Auto) 1.0 /HPF (0.0-6.0) 07/20/17 04:00 Urine Eosinophils None seen (None Seen) 07/26/17 08:48 Urine Osmolality 605 Mosm/kg 07/26/17 08:48 Urine Creatinine 219.3 mg/dL (0.1-20.0) H 07/26/17 08:48 Urine Sodium 36 mmol/L 07/26/17 08:48 Urine Total Protein 70 mg/dL (5-11.8) H 07/26/17 08:48 Lymph Enumerat CD4/CD8 0.02 (0.86-5.00) L 07/19/17 21:20 % CD3 Cells 73 % (57-85) 07/19/17 21:20 Absolute CD3 Count 164 cells/uL (840-3060) L 07/19/17 21:20 % CD4 Cells 1 % (30-61) L 07/19/17 21:20 Absolute CD4 Count 2 cells/uL (490-1740) L 07/19/17 21:20 % CD8 Cells 66 % (12-42) H 07/19/17 21:20 Absolute CD8 Count 135 cells/uL (180-1170) L 07/19/17 21:20 % CD19 Cells 13 % (6-29) 07/19/17 21:20 Absolute CD19 Count 32 cells/uL (110-660) L 07/19/17 21:20 Hepatitis A IgM Ab Non-reactive (NonReactive) 07/19/17 21:20 Hep Bs Antigen Non-reactive (Negative) 07/19/17 21:20 Hep B Core IgM Ab Non-reactive (NonReactive) 07/19/17 21:20 Hepatitis C Antibody Non-reactive (NonReactive) 07/19/17 21:20 HIV DNA Qual (PCR) See scanned result 07/19/17 21:20 HIV-1 Antibody See scanned results 07/19/17 21:20 HIV-1 RNA PCR copies/ml 188988 copies/mL (<20) H 07/19/17 21:20 HIV-1 RNA (PCR) log 5.52 Log cps/mL (<1.30) H 07/19/17 21:20 HIV-2 Ab (Immunoblot) See scanned results 07/19/17 21:20 HIV 1&2 Antibody Rapid Reactive (Non React) 07/19/17 21:20 HIV P24 Antigen Non react (Non React) 07/19/17 21:20 Schistocytes Smear 1+ 07/27/17 10:02 TB (QFT) Gold In Tube Negative (Negative) 07/26/17 04:30 TB Test (QFT) Nil 1.69 IU/mL 07/26/17 04:30 TB Test Mitogen - Nil 1.11 IU/mL 07/26/17 04:30 TB Test Antigen - Nil 0.38 IU/mL 07/26/17 04:30
[2017-08-02] MEDS: FLOMAX PO SCH (21:50)
[2017-08-03] MEDS: BACTRIM DS PO SCH ×3 (06:15→22:36)
[2017-08-03] MEDS: SODIUM CHLORIDE PO SCH ×3 (08:00→20:53)
[2017-08-03] MEDS ORDERED: ZITHROMAX PO SCH (10:00)
[2017-08-03] MEDS: PROTONIX PO SCH (10:07)
[2017-08-03] MEDS: LOVENOX SUB-Q SCH (10:08)
[2017-08-03] MEDS: MAGIC MOUTHWASH PO SCH ×3 (10:09→20:53)
[2017-08-03 10:44] LABS: BUN/Creatinine Ratio 10; Blood Urea Nitrogen 12 mg/dL (9-20); Calcium 8.2 mg/dL (8.4-10.2); Hemolysis Index 16
--- NOTE | 2017-08-03 10:45 | Progress Note ---
Assessment and Plan Assessment: 1) Sepsis: Better. mild hypotensive. Etiology -pneumonia, ? PCP, ?disseminated MAC 2) RLL Pneumonia: CXR neg. CT chest + RLL inflitrate. ? influenza ? CAP ?TB ? opportunistic -CRP 2.1 -influenza antigen neg - AFB x 3 negative -TB QFR negative 3) Oral candidiasis - better 4) Weight loss: from HIV / AIDS 5) Newly diagnosed HIV ? unknown CD4/VL. Cryptococcal antigen neg 6) Neutropenia/thrombocytopenia: resolving from HIV ? MAC ? malignancy ? infection? Improving 7) Hyponatremia; stable 8) Homeless 9) RADHA - better -Renal US negative 10) Advanced AIDS; CD4 =2, VL [id number] Plan: -f/u IR guided bone marrow bx for MAC, fungal, and malignancy result -hematology following -continue bactrim po -disease case manager eval for correction placement -renal following -Upon discharge will do bactrim DS 2 tab po TID total 21 days until 08/09 and bactrim DS 1 tap po daily until CD 4 greater than 200 -continue azithromycin 1200 mg po weekly until CD 4 is greater than [address] Le for your consultation, will follow up with you. Katlyn Arzate NP-C for Dr. Mishel Fry MD Infectious Diseases Specialist [facility] M [phone] O [phone] Subjective Date of service: 08/03/17 Principal diagnosis: leukopenia, fever, thrush, HIV/AIDS Interval history: I am feeling fine, no fever Microbiology: Blood cultures: 07/19 Respiratory cultures: influenza negative 07/19 Cryptococcus antigen negative Urine culture: negative Current Antimicrobials: Bactrim Azithromycin 08/02 Previous Antimicrobials: Vancomycin Zosyn 07/20 levaquin 07/20 tamiflu07/19 diflucan 07/19 Ceftriaoxne 07/20 Objective - Exam Narrative Exam: General appearance: Alert in NAD, conversant Eyes: anicteric sclerae, moist conjunctivae; no lid-lag; PERRLA HENT: Atraumatic; oropharynx +marked thrush, lips cracked and peeling Neck: Trachea midline; supple, no thyromegaly or lymphadenopathy Lungs: diminished breath sounds CV: RRR s1 s2 Abdomen: Soft, non-tender; no masses or hepatosplenomegaly Extremities: No peripheral edema or extremity lymphadenopathy Skin: Normal temperature, dry and ashy Psych: Appropriate affect, calm and cooperative Neuro: alert and oriented x 3. Moving all extermities Lines: No CVL / PICC - Constitutional Vitals: Vital Signs Temp Pulse Resp BP Pulse Ox 98.0 F 91 H 20 101/60 100 08/03/17 07:42 08/03/17 07:42 08/03/17 07:42 08/03/17 07:42 08/03/17 07:42 Temperature -Last 24 Hours Temperature 98.0 F Temperature 98.7 F Temperature 98.4 F - Labs CBC & Chem 7: 08/02/17 07:44 08/03/17 10:22
[2017-08-03 15:41] LABS: Hematocrit 31.8 % (35.5-45.6); Hemoglobin 10.3 gm/dl (11.8-15.2); Mean Corpuscular HGB Conc 32 % (32-34); Mean Corpuscular Volume 74 fl (84-94); Platelet Count 150 K/mm3 (140-440); Red Blood Count 4.27 M/mm3 (3.65-5.03); Red Cell Distribution Width 16.9 % (13.2-15.2)
[2017-08-03 15:52] LABS: Mean Corpuscular Hemoglobin 24 pg (28-32)
[2017-08-03 18:12] LABS: Total Cells Counted 50
[2017-08-03 18:16] LABS: Anisocytosis 1+; Hypochromasia 1+; Schistocytes Few
[2017-08-03 18:17] LABS: Burr Cells Few; Platelet Estimate Consistent w Auto
[2017-08-03] MEDS: FLOMAX PO SCH (22:36)
--- NOTE | 2017-08-03 22:57 | Progress Note ---
Assessment and Plan Assessment and plan: Patient is a 37-year-old man originally from [place] with a history of tobacco dependency who presented with fevers, sore throat, weight loss, abdominal pain and shortness of breath * 2v CXR reported as no acute findings * CT abd/pelvis w and w/o: IMPRESSION: There are infiltrates at the right lung base. There are no pleural effusions or pneumothoraces. There are no kidney stones. There is no hydronephrosis per. There is no bowel obstruction, colitis or enteritis. The appendix is normal.. There is no ascites or free air, abscess or adenopathy.. There is a ventral hernia containing fat only. * CT chest with contrast: IMPRESSION: The heart size is normal. There is no mediastinal or hilar lymphadenopathy. The lungs are well-expanded. 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 There are infiltrates at the right lung base. There is no pulmonary nodule or mass.. There is no pleural effusion or pneumothorax.. SEPSIS PNA: Infectious Disease is following, ivf and abx, cultures with no growth. 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 on bactrim. Oral thrush candidiasis: Treat with Diflucan Neutropenia was likely related to infection: Treated infection Acute kidney injury- Possible secondary to visible nephropathy. Resolved Hyperkalemia-corrected RLL Aspiration pneumonia: iv abx, no evidence of TB Tobacco dependancy: direct care counselor on stopping-15 MINS SPENT. Hyponatremia: Persist possible SIADH, Nephrology following. Severe malnutrition: consult School Secretary, encourage po intake Urinary retention; Maybe secondary to principal disease. Continue on flomax, urology eval outpatient of symptoms continue GERD: add PPI Thrombocytopenia: Stable-Improved DVT prophylaxis: Subcutaneous Lovenox full code Plan discussed with patient. awaiting final Pathology reports.Patient is homeless which makes disposition a problem considering need to advise on pathology reports. History Interval history: Patient seen and examined in no acute distress this morning. Hospitalist Physical - Physical exam Narrative exam: VITAL SIGNS: Reviewed. GENERAL: The patient appeared malnourished with muscle wasting. Vital signs as documented. HEAD: No signs of head trauma. EYES: Pupils are equal. Extraocular motions intact. EARS: Hearing grossly intact. MOUTH: Oral thrush NECK: No adenopathy, no JVD. CHEST: Chest with diminished breath sounds bilaterally. No wheezes, rales, or rhonchi. CARDIAC: Regular rate and rhythm. S1 and S2, without murmurs, gallops, or rubs. VASCULAR: No Edema. Peripheral pulses normal and equal in all extremities. ABDOMEN: Soft, without detectable tenderness. No sign of distention. No rebound or guarding, and no masses palpated. Bowel Sounds normal. MUSCULOSKELETAL: Good range of motion of all major joints. Extremities without clubbing, cyanosis or edema. NEUROLOGIC EXAM: Alert and oriented x 3. No focal sensory or strength deficits. Speech normal. Follows commands. PSYCHIATRIC: Mood normal. SKIN: Some skin deformities and discoloration. - Constitutional Vitals: Temp Pulse Resp BP Pulse Ox 97.5 F L 88 18 94/60 100 08/03/17 15:40 08/03/17 15:41 08/03/17 15:40 08/03/17 15:40 08/03/17 15:41 General appearance: Present: no acute distress, cachectic, other (oral candidiasis) Results - Labs CBC & Chem 7: 08/03/17 15:14 08/03/17 10:22 Labs: Laboratory Last Values WBC 2.3 K/mm3 (4.5-11.0) L 08/03/17 15:14 RBC 4.27 M/mm3 (3.65-5.03) 08/03/17 15:14 Hgb 10.3 gm/dl (11.8-15.2) L 08/03/17 15:14 Hct 31.8 % (35.5-45.6) L 08/03/17 15:14 MCV 74 fl (84-94) L 08/03/17 15:14 MCH 24 pg (28-32) L 08/03/17 15:14 MCHC 32 % (32-34) 08/03/17 15:14 RDW 16.9 % (13.2-15.2) H 08/03/17 15:14 Plt Count 150 K/mm3 (140-440) 08/03/17 15:14 Eos % (Auto) Apiarist 08/03/17 15:14 Add Manual Diff Complete 08/03/17 15:14 Total Counted 50 08/03/17 15:14 Seg Neutrophils % Apiarist 08/03/17 15:14 Seg Neuts % (Manual) 30.0 % (40.0-70.0) L 08/03/17 15:14 Band Neutrophils % 2.0 % 08/03/17 15:14 Lymphocytes % (Manual) 14.0 % (13.4-35.0) 08/03/17 15:14 Reactive Lymphs % (Man) 0 % 08/03/17 15:14 Monocytes % (Manual) 8.0 % (0.0-7.3) H 08/03/17 15:14 Eosinophils % (Manual) 44.0 % (0.0-4.3) H 08/03/17 15:14 Basophils % (Manual) 2.0 % (0.0-1.8) H 08/03/17 15:14 Metamyelocytes % 0 % 08/03/17 15:14 Myelocytes % 0 % 08/03/17 15:14 Promyelocytes % 0 % 08/03/17 15:14 Blast Cells % 0 % 08/03/17 15:14 Nucleated RBC % Not Reportable 08/03/17 15:14 Seg Neutrophils # Man 0.7 K/mm3 (1.8-7.7) L 08/03/17 15:14 Band Neutrophils # 0.0 K/mm3 08/03/17 15:14 Abs Lymphs (Manual) 226 cells/uL (850-3900) L 07/19/17 21:20 Lymphocytes # (Manual) 0.3 K/mm3 (1.2-5.4) L 08/03/17 15:14 Abs React Lymphs (Man) 0.0 K/mm3 08/03/17 15:14 Monocytes # (Manual) 0.2 K/mm3 (0.0-0.8) 08/03/17 15:14 Eosinophils # (Manual) 1.0 K/mm3 (0.0-0.4) H 08/03/17 15:14 Basophils # (Manual) 0.0 K/mm3 (0.0-0.1) 08/03/17 15:14 Metamyelocytes # 0.0 K/mm3 08/03/17 15:14 Myelocytes # 0.0 K/mm3 08/03/17 15:14 Promyelocytes # 0.0 K/mm3 08/03/17 15:14 Blast Cells # 0.0 K/mm3 08/03/17 15:14 WBC Morphology Not Reportable 08/03/17 15:14 Hypersegmented Neuts Not Reportable 08/03/17 15:14 Hyposegmented Neuts Not Reportable 08/03/17 15:14 Hypogranular Neuts Not Reportable 08/03/17 15:14 Smudge Cells Not Reportable 08/03/17 15:14 Toxic Granulation Not Reportable 08/03/17 15:14 Toxic Vacuolation Not Reportable 08/03/17 15:14 Dohle Bodies Not Reportable 08/03/17 15:14 Pelger-Huet Anomaly Not Reportable 08/03/17 15:14 Steffen Rods Not Reportable 08/03/17 15:14 Platelet Estimate Consistent w auto 08/03/17 15:14 Clumped Platelets Not Reportable 08/03/17 15:14 Plt Clumps, EDTA Not Reportable 08/03/17 15:14 Large Platelets Not Reportable 08/03/17 15:14 Giant Platelets Not Reportable 08/03/17 15:14 Platelet Satelliting Not Reportable 08/03/17 15:14 Plt Morphology Comment Not Reportable 08/03/17 15:14 RBC Morphology Not Reportable 08/03/17 15:14 Dimorphic RBCs Not Reportable 08/03/17 15:14 Polychromasia Not Reportable 08/03/17 15:14 Hypochromasia 1+ 08/03/17 15:14 Poikilocytosis Not Reportable 08/03/17 15:14 Anisocytosis 1+ 08/03/17 15:14 Microcytosis Not Reportable 08/03/17 15:14 Macrocytosis Not Reportable 08/03/17 15:14 Spherocytes Not Reportable 08/03/17 15:14 Pappenheimer Bodies Not Reportable 08/03/17 15:14 Sickle Cells Not Reportable 08/03/17 15:14 Target Cells Not Reportable 08/03/17 15:14 Tear Drop Cells Not Reportable 08/03/17 15:14 Ovalocytes Not Reportable 08/03/17 15:14 Helmet Cells Not Reportable 08/03/17 15:14 Collins-[place]ora Bodies Not Reportable 08/03/17 15:14 [place] Rings Not Reportable 08/03/17 15:14 [place] Cells Few 08/03/17 15:14 Bite Cells Not Reportable 08/03/17 15:14 Crenated Cell Not Reportable 08/03/17 15:14 Elliptocytes 2+ 08/03/17 15:14 Acanthocytes (Spur) Not Reportable 08/03/17 15:14 Rouleaux Not Reportable 08/03/17 15:14 Hemoglobin C Crystals Not Reportable 08/03/17 15:14 Schistocytes Few 08/03/17 15:14 Malaria parasites Not Reportable 08/03/17 15:14 Percent Retic 0.55 % (0.78-2.58) L 07/28/17 09:03 Ezekiel Bodies Not Reportable 08/03/17 15:14 Hem Pathologist Commnt No 08/03/17 15:14 PT 13.0 Sec. (12.2-14.9) 07/28/17 09:03 INR 0.94 (0.87-1.13) 07/28/17 09:03 APTT 32.1 Sec. (24.2-36.6) 07/28/17 09:03 Sodium 130 mmol/L (137-145) L 08/03/17 10:22 Potassium 4.7 mmol/L (3.6-5.0) 08/03/17 10:22 Chloride 98.7 mmol/L (98-107) 08/03/17 10:22 Carbon Dioxide 19 mmol/L (22-30) L 08/03/17 10:22 Anion Gap 17 mmol/L 08/03/17 10:22 BUN 12 mg/dL (9-20) 08/03/17 10:22 Creatinine 1.2 mg/dL (0.8-1.5) 08/03/17 10:22 Estimated GFR > 60 ml/min 08/03/17 10:22 BUN/Creatinine Ratio 10 % 08/03/17 10:22 Glucose 101 mg/dL (75-100) H 08/03/17 10:22 Hemoglobin A1c 6.0 % (4-6) 07/20/17 05:22 Osmolality 285 Mosm/kg 07/26/17 03:32 Lactic Acid 0.50 mmol/L (0.7-2.0) L 07/19/17 21:20 Uric Acid 4.8 mg/dL (3.5-7.6) 07/27/17 10:40 Calcium 8.2 mg/dL (8.4-10.2) L 08/03/17 10:22 Phosphorus 3.60 mg/dL (2.5-4.5) 07/26/17 03:32 Iron 43 ug/dL (49-181) L 07/28/17 09:03 TIBC 170 mcg/dL (250-450) L 07/28/17 09:03 % Saturation 25.29 % 07/28/17 09:03 Transferrin 143 mg/dl (180-329) L 07/28/17 09:03 Ferritin 63542.0 ng/mL (13.0-400.0) H 07/28/17 09:03 Total Bilirubin 0.40 mg/dL (0.1-1.2) 07/20/17 05:22 Direct Bilirubin 0.2 mg/dL (0-0.2) 07/19/17 15:43 Indirect Bilirubin 0.5 mg/dL 07/19/17 15:43 AST 44 units/L (5-40) H 07/20/17 05:22 ALT 16 units/L (7-56) 07/20/17 05:22 Alkaline Phosphatase 51 units/L (35-129) 07/20/17 05:22 Lactate Dehydrogenase 404 units/L (91-180) H 08/03/17 10:22 Total Creatine Kinase 43 units/L (55-170) L 07/27/17 10:40 C-Reactive Protein 2.10 mg/dL (0.00-1.30) H 07/19/17 21:20 Total Protein 7.0 g/dL (6.3-8.2) 07/20/17 05:22 Albumin 2.8 g/dL (3.9-5) L 07/20/17 05:22 Albumin/Globulin Ratio 0.7 % 07/20/17 05:22 Vitamin B12 468.5 pg/mL (211-911) 07/28/17 09:03 Folate 8.07 ng/mL (7.3-26.0) 07/28/17 09:03 TSH 5.450 mlU/mL (0.270-4.200) H 07/26/17 03:32 Free T4 1.08 ng/dL (0.76-1.46) 07/28/17 09:03 Total Cortisol 12.8 mcg/dL () 07/28/17 09:03 Urine Color Yellow (Yellow) 07/20/17 04:00 Urine Turbidity Clear (Clear) 07/20/17 04:00 Urine pH 6.0 (5.0-7.0) 07/20/17 04:00 Ur Specific Hailey 1.030 (1.003-1.030) 07/20/17 04:00 Urine Protein <15 mg/dl mg/dL (Negative) 07/20/17 04:00 Urine Glucose (UA) Neg mg/dL (Negative) 07/20/17 04:00 Urine Ketones Neg mg/dL (Negative) 07/20/17 04:00 Urine Blood Neg (Negative) 07/20/17 04:00 Urine Nitrite Neg (Negative) 07/20/17 04:00 Urine Bilirubin Neg (Negative) 07/20/17 04:00 Urine Urobilinogen 2.0 mg/dL (<2.0) 07/20/17 04:00 Ur Leukocyte Esterase Neg (Negative) 07/20/17 04:00 Urine WBC (Auto) < 1.0 /HPF (0.0-6.0) 07/20/17 04:00 Urine RBC (Auto) 1.0 /HPF (0.0-6.0) 07/20/17 04:00 Urine Eosinophils None seen (None Seen) 07/26/17 08:48 Urine Osmolality 605 Mosm/kg 07/26/17 08:48 Urine Creatinine 219.3 mg/dL (0.1-20.0) H 07/26/17 08:48 Urine Sodium 36 mmol/L 07/26/17 08:48 Urine Total Protein 70 mg/dL (5-11.8) H 07/26/17 08:48 Lymph Enumerat CD4/CD8 0.02 (0.86-5.00) L 07/19/17 21:20 % CD3 Cells 73 % (57-85) 07/19/17 21:20 Absolute CD3 Count 164 cells/uL (840-3060) L 07/19/17 21:20 % CD4 Cells 1 % (30-61) L 07/19/17 21:20 Absolute CD4 Count 2 cells/uL (490-1740) L 07/19/17 21:20 % CD8 Cells 66 % (12-42) H 07/19/17 21:20 Absolute CD8 Count 135 cells/uL (180-1170) L 07/19/17 21:20 % CD19 Cells 13 % (6-29) 07/19/17 21:20 Absolute CD19 Count 32 cells/uL (110-660) L 07/19/17 21:20 Hepatitis A IgM Ab Non-reactive (NonReactive) 07/19/17 21:20 Hep Bs Antigen Non-reactive (Negative) 07/19/17 21:20 Hep B Core IgM Ab Non-reactive (NonReactive) 07/19/17 21:20 Hepatitis C Antibody Non-reactive (NonReactive) 07/19/17 21:20 HIV DNA Qual (PCR) See scanned result 07/19/17 21:20 HIV-1 Antibody See scanned results 07/19/17 21:20 HIV-1 RNA PCR copies/ml 342756 copies/mL (<20) H 07/19/17 21:20 HIV-1 RNA (PCR) log 5.52 Log cps/mL (<1.30) H 07/19/17 21:20 HIV-2 Ab (Immunoblot) See scanned results 07/19/17 21:20 HIV 1&2 Antibody Rapid Reactive (Non React) 07/19/17 21:20 HIV P24 Antigen Non react (Non React) 07/19/17 21:20 Schistocytes Smear 1+ 07/27/17 10:02 TB (QFT) Gold In Tube Negative (Negative) 07/26/17 04:30 TB Test (QFT) Nil 1.69 IU/mL 07/26/17 04:30 TB Test Mitogen - Nil 1.11 IU/mL 07/26/17 04:30 TB Test Antigen - Nil 0.38 IU/mL 07/26/17 04:30
[2017-08-04] MEDS: BACTRIM DS PO SCH ×3 (06:40→23:52)
--- NOTE | 2017-08-04 09:14 | Hem/Onc Progress Note ---
Assessment and Plan cbC improved. Awaiting final bone marrow pathology. Subjective Date of service: 08/04/17 Interval history: pt feels fair Feels better but complains of difficulty urinating Objective - Constitutional Vitals: Last Vital Signs Temp 97.9 F 08/04/17 07:37 Pulse 91 H 08/04/17 07:37 Resp 18 08/04/17 07:37 BP 96/66 08/04/17 07:37 Pulse Ox 100 08/04/17 07:37 Pain Intensity (0-10): denies any pain General appearance: no acute distress - Neck Neck: supple - Respiratory Respiratory effort: Positive: normal Respiratory: bilateral: diminished - Cardiovascular Rhythm: regular Extremities: No edema - Gastrointestinal General gastrointestinal: Present: soft - Labs Lab Results: Laboratory Results - last 24 hr 08/03/17 08/03/17 08/03/17 10:22 10:22 15:14 WBC 2.3 L RBC 4.27 Hgb 10.3 L Hct 31.8 L MCV 74 L MCH 24 L MCHC 32 RDW 16.9 H Plt Count 150 Eos % (Auto) Packing Machine Tender Add Manual Diff Complete Total Counted 50 Seg Neutrophils % Packing Machine Tender Seg Neuts % (Manual) 30.0 L Band Neutrophils % 2.0 Lymphocytes % (Manual) 14.0 Reactive Lymphs % (Man) 0 Monocytes % (Manual) 8.0 H Eosinophils % (Manual) 44.0 H Basophils % (Manual) 2.0 H Metamyelocytes % 0 Myelocytes % 0 Promyelocytes % 0 Blast Cells % 0 Nucleated RBC % Not Reportable Seg Neutrophils # Man 0.7 L Band Neutrophils # 0.0 Lymphocytes # (Manual) 0.3 L Abs React Lymphs (Man) 0.0 Monocytes # (Manual) 0.2 Eosinophils # (Manual) 1.0 H Basophils # (Manual) 0.0 Metamyelocytes # 0.0 Myelocytes # 0.0 Promyelocytes # 0.0 Blast Cells # 0.0 WBC Morphology Not Reportable Hypersegmented Neuts Not Reportable Hyposegmented Neuts Not Reportable Hypogranular Neuts Not Reportable Smudge Cells Not Reportable Toxic Granulation Not Reportable Toxic Vacuolation Not Reportable Dohle Bodies Not Reportable Pelger-Huet Anomaly Not Reportable Steffen Rods Not Reportable Platelet Estimate Consistent w auto Clumped Platelets Not Reportable Plt Clumps, EDTA Not Reportable Large Platelets Not Reportable Giant Platelets Not Reportable Platelet Satelliting Not Reportable Plt Morphology Comment Not Reportable RBC Morphology Not Reportable Dimorphic RBCs Not Reportable Polychromasia Not Reportable Hypochromasia 1+ Poikilocytosis Not Reportable Anisocytosis 1+ Microcytosis Not Reportable Macrocytosis Not Reportable Spherocytes Not Reportable Pappenheimer Bodies Not Reportable Sickle Cells Not Reportable Target Cells Not Reportable Tear Drop Cells Not Reportable Ovalocytes Not Reportable Helmet Cells Not Reportable [place] Bodies Not Reportable [place] Rings Not Reportable [place] Cells Few Bite Cells Not Reportable Crenated Cell Not Reportable Elliptocytes 2+ Acanthocytes (Spur) Not Reportable Rouleaux Not Reportable Hemoglobin C Crystals Not Reportable Schistocytes Few Malaria parasites Not Reportable Ezekiel Bodies Not Reportable Hem Pathologist Commnt No Sodium 130 L Potassium 4.7 Chloride 98.7 Carbon Dioxide 19 L Anion Gap 17 BUN 12 Creatinine 1.2 Estimated GFR > 60 BUN/Creatinine Ratio 10 Glucose 101 H Calcium 8.2 L Lactate Dehydrogenase 404 H
[2017-08-04] MEDS: PROTONIX PO SCH (10:29)
[2017-08-04] MEDS: SODIUM CHLORIDE PO SCH ×3 (10:29→23:51)
[2017-08-04] MEDS: LOVENOX SUB-Q SCH (10:29)
[2017-08-04] MEDS: MAGIC MOUTHWASH PO SCH ×3 (10:30→23:51)
--- NOTE | 2017-08-04 11:19 | Progress Note ---
Assessment and Plan Assessment: 1) Sepsis: Better. mild hypotensive. Etiology -pneumonia, ? PCP, ?disseminated MAC 2) RLL Pneumonia: CXR neg. CT chest + RLL inflitrate. ? influenza ? CAP ?TB ? opportunistic -CRP 2.1 -influenza antigen neg - AFB x 3 negative -TB QFR negative 3) Oral candidiasis - better 4) Weight loss: from HIV / AIDS 5) Newly diagnosed HIV ? unknown CD4/VL. Cryptococcal antigen neg 6) Neutropenia/thrombocytopenia: resolving from HIV ? MAC ? malignancy ? infection? Improving 7) Hyponatremia; stable 8) Homeless 9) RADHA - better -Renal US negative 10) Advanced AIDS; CD4 =2, VL [id number] Plan: -f/u IR guided bone marrow bx for MAC, fungal, and malignancy result, awaiting final result -hematology following -continue bactrim po -case management assistant eval for fpc placement -renal following -Upon discharge will do bactrim DS 2 tab po TID total 21 days until 08/09 and bactrim DS 1 tap po daily until CD 4 greater than 200 -continue azithromycin 1200 mg po weekly until CD 4 is greater than 200 Dr. Geronimo will round on Monday Thank you Dr Le for your consultation, will follow up with you. Katlyn Arzate NP-C for Dr. Mishel Fry MD Infectious Diseases Specialist [facility] M [phone] O [phone] Subjective Date of service: 08/04/17 Principal diagnosis: leukopenia, fever, thrush, HIV/AIDS Interval history: I found my phone, no fever Microbiology: Blood cultures: 07/19 Respiratory cultures: influenza negative 07/19 Cryptococcus antigen negative Urine culture: negative Current Antimicrobials: Bactrim Azithromycin 08/02 Previous Antimicrobials: Vancomycin Zosyn 07/20 levaquin 07/20 tamiflu07/19 diflucan 07/19 Ceftriaoxne 07/20 Objective - Exam Narrative Exam: General appearance: Alert in NAD, conversant Eyes: anicteric sclerae, moist conjunctivae; no lid-lag; PERRLA HENT: Atraumatic; oropharynx +marked thrush, face and lips cracked and peeling Neck: Trachea midline; supple, no thyromegaly or lymphadenopathy Lungs: diminished breath sounds CV: RRR s1 s2 Abdomen: Soft, non-tender; no masses or hepatosplenomegaly Extremities: No peripheral edema or extremity lymphadenopathy Skin: Normal temperature, dry and ashy Psych: Appropriate affect, calm and cooperative Neuro: alert and oriented x 3. Moving all extermities Lines: No CVL / PICC - Constitutional Vitals: Vital Signs Temp Pulse Resp BP Pulse Ox 97.9 F 91 H 18 96/66 100 08/04/17 07:37 08/04/17 07:37 08/04/17 07:37 08/04/17 07:37 08/04/17 07:37 Temperature -Last 24 Hours Temperature 97.9 F Temperature 97.8 F Temperature 97.5 F - Labs CBC & Chem 7: 08/03/17 15:14 08/03/17 10:22 Labs: Abnormal lab results 08/03/17 08/03/17 Range/Units 10:22 15:14 WBC 2.3 L (4.5-11.0) K/mm3 Hgb 10.3 L (11.8-15.2) gm/dl Hct 31.8 L (35.5-45.6) % MCV 74 L (84-94) fl MCH 24 L (28-32) pg RDW 16.9 H (13.2-15.2) % Seg Neuts % (Manual) 30.0 L (40.0-70.0) % Monocytes % (Manual) 8.0 H (0.0-7.3) % Eosinophils % (Manual) 44.0 H (0.0-4.3) % Basophils % (Manual) 2.0 H (0.0-1.8) % Seg Neutrophils # Man 0.7 L (1.8-7.7) K/mm3 Lymphocytes # (Manual) 0.3 L (1.2-5.4) K/mm3 Eosinophils # (Manual) 1.0 H (0.0-0.4) K/mm3 Lactate Dehydrogenase 404 H (91-180) units/L
--- NOTE | 2017-08-04 15:44 | Progress Note ---
Assessment and Plan Assessment and plan: Patient is a 37-year-old man originally from [place] with a history of tobacco dependency who presented with fevers, sore throat, weight loss, abdominal pain and shortness of breath * 2v CXR reported as no acute findings * CT abd/pelvis w and w/o: IMPRESSION: There are infiltrates at the right lung base. There are no pleural effusions or pneumothoraces. There are no kidney stones. There is no hydronephrosis per. There is no bowel obstruction, colitis or enteritis. The appendix is normal.. There is no ascites or free air, abscess or adenopathy.. There is a ventral hernia containing fat only. * CT chest with contrast: IMPRESSION: The heart size is normal. There is no mediastinal or hilar lymphadenopathy. The lungs are well-expanded. 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 There are infiltrates at the right lung base. There is no pulmonary nodule or mass.. There is no pleural effusion or pneumothorax.. SEPSIS PNA: Infectious Disease is following, ivf and abx, cultures with no growth. 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 on bactrim. Oral thrush candidiasis: Treat with Diflucan Neutropenia was likely related to infection: Treated infection Acute kidney injury- Possible secondary to visible nephropathy. Resolved Hyperkalemia-corrected RLL Aspiration pneumonia: iv abx, no evidence of TB Tobacco dependancy: awake overnight counselor on stopping-15 MINS SPENT. Hyponatremia: Persist possible SIADH, Nephrology following. Severe malnutrition: consult General Manager Food, encourage po intake Urinary retention; Maybe secondary to principal disease. Continue on flomax, urology eval outpatient of symptoms continue GERD: add PPI Thrombocytopenia: Stable-Improved DVT prophylaxis: Subcutaneous Lovenox full code Plan discussed with patient. awaiting final Pathology reports.Patient is homeless which makes disposition a problem considering need to advise on pathology reports. History Interval history: Patient seen and examined in no acute distress this morning. Hospitalist Physical - Physical exam Narrative exam: VITAL SIGNS: Reviewed. GENERAL: The patient appeared malnourished with muscle wasting. Vital signs as documented. HEAD: No signs of head trauma. EYES: Pupils are equal. Extraocular motions intact. EARS: Hearing grossly intact. MOUTH: Oral thrush NECK: No adenopathy, no JVD. CHEST: Chest with diminished breath sounds bilaterally. No wheezes, rales, or rhonchi. CARDIAC: Regular rate and rhythm. S1 and S2, without murmurs, gallops, or rubs. VASCULAR: No Edema. Peripheral pulses normal and equal in all extremities. ABDOMEN: Soft, without detectable tenderness. No sign of distention. No rebound or guarding, and no masses palpated. Bowel Sounds normal. MUSCULOSKELETAL: Good range of motion of all major joints. Extremities without clubbing, cyanosis or edema. NEUROLOGIC EXAM: Alert and oriented x 3. No focal sensory or strength deficits. Speech normal. Follows commands. PSYCHIATRIC: Mood normal. SKIN: Some skin deformities and discoloration. - Constitutional Vitals: Temp Pulse Resp BP Pulse Ox 97.9 F 91 H 18 96/66 100 08/04/17 07:37 08/04/17 07:37 08/04/17 07:37 08/04/17 07:37 08/04/17 07:37 General appearance: Present: no acute distress, cachectic, other (oral candidiasis) Results - Labs CBC & Chem 7: 08/03/17 15:14 08/03/17 10:22 Labs: Laboratory Last Values WBC 2.3 K/mm3 (4.5-11.0) L 08/03/17 15:14 RBC 4.27 M/mm3 (3.65-5.03) 08/03/17 15:14 Hgb 10.3 gm/dl (11.8-15.2) L 08/03/17 15:14 Hct 31.8 % (35.5-45.6) L 08/03/17 15:14 MCV 74 fl (84-94) L 08/03/17 15:14 MCH 24 pg (28-32) L 08/03/17 15:14 MCHC 32 % (32-34) 08/03/17 15:14 RDW 16.9 % (13.2-15.2) H 08/03/17 15:14 Plt Count 150 K/mm3 (140-440) 08/03/17 15:14 Eos % (Auto) World Travel Counselor 08/03/17 15:14 Add Manual Diff Complete 08/03/17 15:14 Total Counted 50 08/03/17 15:14 Seg Neutrophils % World Travel Counselor 08/03/17 15:14 Seg Neuts % (Manual) 30.0 % (40.0-70.0) L 08/03/17 15:14 Band Neutrophils % 2.0 % 08/03/17 15:14 Lymphocytes % (Manual) 14.0 % (13.4-35.0) 08/03/17 15:14 Reactive Lymphs % (Man) 0 % 08/03/17 15:14 Monocytes % (Manual) 8.0 % (0.0-7.3) H 08/03/17 15:14 Eosinophils % (Manual) 44.0 % (0.0-4.3) H 08/03/17 15:14 Basophils % (Manual) 2.0 % (0.0-1.8) H 08/03/17 15:14 Metamyelocytes % 0 % 08/03/17 15:14 Myelocytes % 0 % 08/03/17 15:14 Promyelocytes % 0 % 08/03/17 15:14 Blast Cells % 0 % 08/03/17 15:14 Nucleated RBC % Not Reportable 08/03/17 15:14 Seg Neutrophils # Man 0.7 K/mm3 (1.8-7.7) L 08/03/17 15:14 Band Neutrophils # 0.0 K/mm3 08/03/17 15:14 Abs Lymphs (Manual) 226 cells/uL (850-3900) L 07/19/17 21:20 Lymphocytes # (Manual) 0.3 K/mm3 (1.2-5.4) L 08/03/17 15:14 Abs React Lymphs (Man) 0.0 K/mm3 08/03/17 15:14 Monocytes # (Manual) 0.2 K/mm3 (0.0-0.8) 08/03/17 15:14 Eosinophils # (Manual) 1.0 K/mm3 (0.0-0.4) H 08/03/17 15:14 Basophils # (Manual) 0.0 K/mm3 (0.0-0.1) 08/03/17 15:14 Metamyelocytes # 0.0 K/mm3 08/03/17 15:14 Myelocytes # 0.0 K/mm3 08/03/17 15:14 Promyelocytes # 0.0 K/mm3 08/03/17 15:14 Blast Cells # 0.0 K/mm3 08/03/17 15:14 WBC Morphology Not Reportable 08/03/17 15:14 Hypersegmented Neuts Not Reportable 08/03/17 15:14 Hyposegmented Neuts Not Reportable 08/03/17 15:14 Hypogranular Neuts Not Reportable 08/03/17 15:14 Smudge Cells Not Reportable 08/03/17 15:14 Toxic Granulation Not Reportable 08/03/17 15:14 Toxic Vacuolation Not Reportable 08/03/17 15:14 Dohle Bodies Not Reportable 08/03/17 15:14 Pelger-Huet Anomaly Not Reportable 08/03/17 15:14 Steffen Rods Not Reportable 08/03/17 15:14 Platelet Estimate Consistent w auto 08/03/17 15:14 Clumped Platelets Not Reportable 08/03/17 15:14 Plt Clumps, EDTA Not Reportable 08/03/17 15:14 Large Platelets Not Reportable 08/03/17 15:14 Giant Platelets Not Reportable 08/03/17 15:14 Platelet Satelliting Not Reportable 08/03/17 15:14 Plt Morphology Comment Not Reportable 08/03/17 15:14 RBC Morphology Not Reportable 08/03/17 15:14 Dimorphic RBCs Not Reportable 08/03/17 15:14 Polychromasia Not Reportable 08/03/17 15:14 Hypochromasia 1+ 08/03/17 15:14 Poikilocytosis Not Reportable 08/03/17 15:14 Anisocytosis 1+ 08/03/17 15:14 Microcytosis Not Reportable 08/03/17 15:14 Macrocytosis Not Reportable 08/03/17 15:14 Spherocytes Not Reportable 08/03/17 15:14 Pappenheimer Bodies Not Reportable 08/03/17 15:14 Sickle Cells Not Reportable 08/03/17 15:14 Target Cells Not Reportable 08/03/17 15:14 Tear Drop Cells Not Reportable 08/03/17 15:14 Ovalocytes Not Reportable 08/03/17 15:14 Helmet Cells Not Reportable 08/03/17 15:14 [place] Bodies Not Reportable 08/03/17 15:14 [place] Rings Not Reportable 08/03/17 15:14 [place] Cells Few 08/03/17 15:14 Bite Cells Not Reportable 08/03/17 15:14 Crenated Cell Not Reportable 08/03/17 15:14 Elliptocytes 2+ 08/03/17 15:14 Acanthocytes (Spur) Not Reportable 08/03/17 15:14 Rouleaux Not Reportable 08/03/17 15:14 Hemoglobin C Crystals Not Reportable 08/03/17 15:14 Schistocytes Few 08/03/17 15:14 Malaria parasites Not Reportable 08/03/17 15:14 Percent Retic 0.55 % (0.78-2.58) L 07/28/17 09:03 Ezekiel Bodies Not Reportable 08/03/17 15:14 Hem Pathologist Commnt No 08/03/17 15:14 PT 13.0 Sec. (12.2-14.9) 07/28/17 09:03 INR 0.94 (0.87-1.13) 07/28/17 09:03 APTT 32.1 Sec. (24.2-36.6) 07/28/17 09:03 Sodium 130 mmol/L (137-145) L 08/03/17 10:22 Potassium 4.7 mmol/L (3.6-5.0) 08/03/17 10:22 Chloride 98.7 mmol/L (98-107) 08/03/17 10:22 Carbon Dioxide 19 mmol/L (22-30) L 08/03/17 10:22 Anion Gap 17 mmol/L 08/03/17 10:22 BUN 12 mg/dL (9-20) 08/03/17 10:22 Creatinine 1.2 mg/dL (0.8-1.5) 08/03/17 10:22 Estimated GFR > 60 ml/min 08/03/17 10:22 BUN/Creatinine Ratio 10 % 08/03/17 10:22 Glucose 101 mg/dL (75-100) H 08/03/17 10:22 Hemoglobin A1c 6.0 % (4-6) 07/20/17 05:22 Osmolality 285 Mosm/kg 07/26/17 03:32 Lactic Acid 0.50 mmol/L (0.7-2.0) L 07/19/17 21:20 Uric Acid 4.8 mg/dL (3.5-7.6) 07/27/17 10:40 Calcium 8.2 mg/dL (8.4-10.2) L 08/03/17 10:22 Phosphorus 3.60 mg/dL (2.5-4.5) 07/26/17 03:32 Iron 43 ug/dL (49-181) L 07/28/17 09:03 TIBC 170 mcg/dL (250-450) L 07/28/17 09:03 % Saturation 25.29 % 07/28/17 09:03 Transferrin 143 mg/dl (180-329) L 07/28/17 09:03 Ferritin 15986.0 ng/mL (13.0-400.0) H 07/28/17 09:03 Total Bilirubin 0.40 mg/dL (0.1-1.2) 07/20/17 05:22 Direct Bilirubin 0.2 mg/dL (0-0.2) 07/19/17 15:43 Indirect Bilirubin 0.5 mg/dL 07/19/17 15:43 AST 44 units/L (5-40) H 07/20/17 05:22 ALT 16 units/L (7-56) 07/20/17 05:22 Alkaline Phosphatase 51 units/L (35-129) 07/20/17 05:22 Lactate Dehydrogenase 404 units/L (91-180) H 08/03/17 10:22 Total Creatine Kinase 43 units/L (55-170) L 07/27/17 10:40 C-Reactive Protein 2.10 mg/dL (0.00-1.30) H 07/19/17 21:20 Total Protein 7.0 g/dL (6.3-8.2) 07/20/17 05:22 Albumin 2.8 g/dL (3.9-5) L 07/20/17 05:22 Albumin/Globulin Ratio 0.7 % 07/20/17 05:22 Vitamin B12 468.5 pg/mL (211-911) 07/28/17 09:03 Folate 8.07 ng/mL (7.3-26.0) 07/28/17 09:03 TSH 5.450 mlU/mL (0.270-4.200) H 07/26/17 03:32 Free T4 1.08 ng/dL (0.76-1.46) 07/28/17 09:03 Total Cortisol 12.8 mcg/dL () 07/28/17 09:03 Urine Color Yellow (Yellow) 07/20/17 04:00 Urine Turbidity Clear (Clear) 07/20/17 04:00 Urine pH 6.0 (5.0-7.0) 07/20/17 04:00 Ur Specific [place] 1.030 (1.003-1.030) 07/20/17 04:00 Urine Protein <15 mg/dl mg/dL (Negative) 07/20/17 04:00 Urine Glucose (UA) Neg mg/dL (Negative) 07/20/17 04:00 Urine Ketones Neg mg/dL (Negative) 07/20/17 04:00 Urine Blood Neg (Negative) 07/20/17 04:00 Urine Nitrite Neg (Negative) 07/20/17 04:00 Urine Bilirubin Neg (Negative) 07/20/17 04:00 Urine Urobilinogen 2.0 mg/dL (<2.0) 07/20/17 04:00 Ur Leukocyte Esterase Neg (Negative) 07/20/17 04:00 Urine WBC (Auto) < 1.0 /HPF (0.0-6.0) 07/20/17 04:00 Urine RBC (Auto) 1.0 /HPF (0.0-6.0) 07/20/17 04:00 Urine Eosinophils None seen (None Seen) 07/26/17 08:48 Urine Osmolality 605 Mosm/kg 07/26/17 08:48 Urine Creatinine 219.3 mg/dL (0.1-20.0) H 07/26/17 08:48 Urine Sodium 36 mmol/L 07/26/17 08:48 Urine Total Protein 70 mg/dL (5-11.8) H 07/26/17 08:48 Lymph Enumerat CD4/CD8 0.02 (0.86-5.00) L 07/19/17 21:20 % CD3 Cells 73 % (57-85) 07/19/17 21:20 Absolute CD3 Count 164 cells/uL (840-3060) L 07/19/17 21:20 % CD4 Cells 1 % (30-61) L 07/19/17 21:20 Absolute CD4 Count 2 cells/uL (490-1740) L 07/19/17 21:20 % CD8 Cells 66 % (12-42) H 07/19/17 21:20 Absolute CD8 Count 135 cells/uL (180-1170) L 07/19/17 21:20 % CD19 Cells 13 % (6-29) 07/19/17 21:20 Absolute CD19 Count 32 cells/uL (110-660) L 07/19/17 21:20 Hepatitis A IgM Ab Non-reactive (NonReactive) 07/19/17 21:20 Hep Bs Antigen Non-reactive (Negative) 07/19/17 21:20 Hep B Core IgM Ab Non-reactive (NonReactive) 07/19/17 21:20 Hepatitis C Antibody Non-reactive (NonReactive) 07/19/17 21:20 HIV DNA Qual (PCR) See scanned result 07/19/17 21:20 HIV-1 Antibody See scanned results 07/19/17 21:20 HIV-1 RNA PCR copies/ml 829583 copies/mL (<20) H 07/19/17 21:20 HIV-1 RNA (PCR) log 5.52 Log cps/mL (<1.30) H 07/19/17 21:20 HIV-2 Ab (Immunoblot) See scanned results 07/19/17 21:20 HIV 1&2 Antibody Rapid Reactive (Non React) 07/19/17 21:20 HIV P24 Antigen Non react (Non React) 07/19/17 21:20 Schistocytes Smear 1+ 07/27/17 10:02 TB (QFT) Gold In Tube Negative (Negative) 07/26/17 04:30 TB Test (QFT) Nil 1.69 IU/mL 07/26/17 04:30 TB Test Mitogen - Nil 1.11 IU/mL 07/26/17 04:30 TB Test Antigen - Nil 0.38 IU/mL 07/26/17 04:30
[2017-08-04] MEDS: FLOMAX PO SCH (23:52)
[2017-08-05] MEDS: BACTRIM DS PO SCH ×3 (05:53→22:37)
[2017-08-05] MEDS: MAGIC MOUTHWASH PO SCH ×3 (09:43→22:39)
[2017-08-05] MEDS: PROTONIX PO SCH (09:45)
[2017-08-05] MEDS: SODIUM CHLORIDE PO SCH ×3 (09:45→22:38)
[2017-08-05] MEDS: LOVENOX SUB-Q SCH (09:46)
[2017-08-05 15:21] LABS: Hematocrit 31.9 % (35.5-45.6); Hemoglobin 10.4 gm/dl (11.8-15.2); Mean Corpuscular HGB Conc 33 % (32-34); Mean Corpuscular Volume 73 fl (84-94); Platelet Count 175 K/mm3 (140-440); Red Blood Count 4.37 M/mm3 (3.65-5.03); Red Cell Distribution Width 17.2 % (13.2-15.2)
[2017-08-05 15:27] LABS: Mean Corpuscular Hemoglobin 24 pg (28-32)
[2017-08-05 15:35] LABS: BUN/Creatinine Ratio 9; Blood Urea Nitrogen 12 mg/dL (9-20); Calcium 8.2 mg/dL (8.4-10.2); Hemolysis Index 3
--- NOTE | 2017-08-05 17:50 | Progress Note ---
Assessment and Plan Assessment and plan: Patient is a 37-year-old man originally from [place] with a history of tobacco dependency who presented with fevers, sore throat, weight loss, abdominal pain and shortness of breath * 2v CXR reported as no acute findings * CT abd/pelvis w and w/o: IMPRESSION: There are infiltrates at the right lung base. There are no pleural effusions or pneumothoraces. There are no kidney stones. There is no hydronephrosis per. There is no bowel obstruction, colitis or enteritis. The appendix is normal.. There is no ascites or free air, abscess or adenopathy.. There is a ventral hernia containing fat only. * CT chest with contrast: IMPRESSION: The heart size is normal. There is no mediastinal or hilar lymphadenopathy. The lungs are well-expanded. 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 There are infiltrates at the right lung base. There is no pulmonary nodule or mass.. There is no pleural effusion or pneumothorax.. SEPSIS PNA: Infectious Disease is following, ivf and abx, cultures with no growth. 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 on bactrim. Oral thrush candidiasis: Treat with Diflucan Neutropenia was likely related to infection: Treated infection Acute kidney injury- Possible secondary to visible nephropathy. Resolved Hyperkalemia-corrected RLL Aspiration pneumonia: iv abx, no evidence of TB Tobacco dependancy: chromosomal disorders counselor on stopping-15 MINS SPENT. Hyponatremia: Persist possible SIADH, Nephrology following. Severe malnutrition: consult Sports Medicine Specialist, encourage po intake Urinary retention; Maybe secondary to principal disease. Continue on flomax, urology eval outpatient of symptoms continue GERD: add PPI Thrombocytopenia: Stable-Improved DVT prophylaxis: Subcutaneous Lovenox full code Plan discussed with patient. awaiting final Pathology reports.Patient is homeless which makes disposition a problem considering need to advise on pathology reports. History Interval history: Patient seen and examined in no acute distress this morning. encouraged to shower Hospitalist Physical - Physical exam Narrative exam: VITAL SIGNS: Reviewed. GENERAL: The patient appeared malnourished with muscle wasting. Vital signs as documented. HEAD: No signs of head trauma. EYES: Pupils are equal. Extraocular motions intact. EARS: Hearing grossly intact. MOUTH: Oral thrush NECK: No adenopathy, no JVD. CHEST: Chest with diminished breath sounds bilaterally. No wheezes, rales, or rhonchi. CARDIAC: Regular rate and rhythm. S1 and S2, without murmurs, gallops, or rubs. VASCULAR: No Edema. Peripheral pulses normal and equal in all extremities. ABDOMEN: Soft, without detectable tenderness. No sign of distention. No rebound or guarding, and no masses palpated. Bowel Sounds normal. MUSCULOSKELETAL: Good range of motion of all major joints. Extremities without clubbing, cyanosis or edema. NEUROLOGIC EXAM: Alert and oriented x 3. No focal sensory or strength deficits. Speech normal. Follows commands. PSYCHIATRIC: Mood normal. SKIN: Some skin deformities and discoloration. - Constitutional Vitals: Temp Pulse Resp BP Pulse Ox 98.0 F 82 18 109/71 98 08/05/17 07:40 08/05/17 07:40 08/05/17 07:40 08/05/17 07:40 08/05/17 07:40 General appearance: Present: no acute distress, cachectic, other (oral candidiasis) Results - Labs CBC & Chem 7: 08/05/17 15:01 08/05/17 15:01 Labs: Laboratory Last Values WBC 3.1 K/mm3 (4.5-11.0) L 08/05/17 15:01 RBC 4.37 M/mm3 (3.65-5.03) 08/05/17 15:01 Hgb 10.4 gm/dl (11.8-15.2) L 08/05/17 15:01 Hct 31.9 % (35.5-45.6) L 08/05/17 15:01 MCV 73 fl (84-94) L 08/05/17 15:01 MCH 24 pg (28-32) L 08/05/17 15:01 MCHC 33 % (32-34) 08/05/17 15:01 RDW 17.2 % (13.2-15.2) H 08/05/17 15:01 Plt Count 175 K/mm3 (140-440) 08/05/17 15:01 Eos % (Auto) Early Childhood Associate Teacher 08/03/17 15:14 Add Manual Diff Complete 08/03/17 15:14 Total Counted 50 08/03/17 15:14 Seg Neutrophils % Early Childhood Associate Teacher 08/03/17 15:14 Seg Neuts % (Manual) 30.0 % (40.0-70.0) L 08/03/17 15:14 Band Neutrophils % 2.0 % 08/03/17 15:14 Lymphocytes % (Manual) 14.0 % (13.4-35.0) 08/03/17 15:14 Reactive Lymphs % (Man) 0 % 08/03/17 15:14 Monocytes % (Manual) 8.0 % (0.0-7.3) H 08/03/17 15:14 Eosinophils % (Manual) 44.0 % (0.0-4.3) H 08/03/17 15:14 Basophils % (Manual) 2.0 % (0.0-1.8) H 08/03/17 15:14 Metamyelocytes % 0 % 08/03/17 15:14 Myelocytes % 0 % 08/03/17 15:14 Promyelocytes % 0 % 08/03/17 15:14 Blast Cells % 0 % 08/03/17 15:14 Nucleated RBC % Not Reportable 08/03/17 15:14 Seg Neutrophils # Man 0.7 K/mm3 (1.8-7.7) L 08/03/17 15:14 Band Neutrophils # 0.0 K/mm3 08/03/17 15:14 Abs Lymphs (Manual) 226 cells/uL (850-3900) L 07/19/17 21:20 Lymphocytes # (Manual) 0.3 K/mm3 (1.2-5.4) L 08/03/17 15:14 Abs React Lymphs (Man) 0.0 K/mm3 08/03/17 15:14 Monocytes # (Manual) 0.2 K/mm3 (0.0-0.8) 08/03/17 15:14 Eosinophils # (Manual) 1.0 K/mm3 (0.0-0.4) H 08/03/17 15:14 Basophils # (Manual) 0.0 K/mm3 (0.0-0.1) 08/03/17 15:14 Metamyelocytes # 0.0 K/mm3 08/03/17 15:14 Myelocytes # 0.0 K/mm3 08/03/17 15:14 Promyelocytes # 0.0 K/mm3 08/03/17 15:14 Blast Cells # 0.0 K/mm3 08/03/17 15:14 WBC Morphology Not Reportable 08/03/17 15:14 Hypersegmented Neuts Not Reportable 08/03/17 15:14 Hyposegmented Neuts Not Reportable 08/03/17 15:14 Hypogranular Neuts Not Reportable 08/03/17 15:14 Smudge Cells Not Reportable 08/03/17 15:14 Toxic Granulation Not Reportable 08/03/17 15:14 Toxic Vacuolation Not Reportable 08/03/17 15:14 Dohle Bodies Not Reportable 08/03/17 15:14 Pelger-Huet Anomaly Not Reportable 08/03/17 15:14 Steffen Rods Not Reportable 08/03/17 15:14 Platelet Estimate Consistent w auto 08/03/17 15:14 Clumped Platelets Not Reportable 08/03/17 15:14 Plt Clumps, EDTA Not Reportable 08/03/17 15:14 Large Platelets Not Reportable 08/03/17 15:14 Giant Platelets Not Reportable 08/03/17 15:14 Platelet Satelliting Not Reportable 08/03/17 15:14 Plt Morphology Comment Not Reportable 08/03/17 15:14 RBC Morphology Not Reportable 08/03/17 15:14 Dimorphic RBCs Not Reportable 08/03/17 15:14 Polychromasia Not Reportable 08/03/17 15:14 Hypochromasia 1+ 08/03/17 15:14 Poikilocytosis Not Reportable 08/03/17 15:14 Anisocytosis 1+ 08/03/17 15:14 Microcytosis Not Reportable 08/03/17 15:14 Macrocytosis Not Reportable 08/03/17 15:14 Spherocytes Not Reportable 08/03/17 15:14 Pappenheimer Bodies Not Reportable 08/03/17 15:14 Sickle Cells Not Reportable 08/03/17 15:14 Target Cells Not Reportable 08/03/17 15:14 Tear Drop Cells Not Reportable 08/03/17 15:14 Ovalocytes Not Reportable 08/03/17 15:14 Helmet Cells Not Reportable 08/03/17 15:14 [place] Bodies Not Reportable 08/03/17 15:14 [place] Rings Not Reportable 08/03/17 15:14 [place] Cells Few 08/03/17 15:14 Bite Cells Not Reportable 08/03/17 15:14 Crenated Cell Not Reportable 08/03/17 15:14 Elliptocytes 2+ 08/03/17 15:14 Acanthocytes (Spur) Not Reportable 08/03/17 15:14 Rouleaux Not Reportable 08/03/17 15:14 Hemoglobin C Crystals Not Reportable 08/03/17 15:14 Schistocytes Few 08/03/17 15:14 Malaria parasites Not Reportable 08/03/17 15:14 Percent Retic 0.55 % (0.78-2.58) L 07/28/17 09:03 Ezekiel Bodies Not Reportable 08/03/17 15:14 Hem Pathologist Commnt No 08/03/17 15:14 PT 13.0 Sec. (12.2-14.9) 07/28/17 09:03 INR 0.94 (0.87-1.13) 07/28/17 09:03 APTT 32.1 Sec. (24.2-36.6) 07/28/17 09:03 Sodium 131 mmol/L (137-145) L 08/05/17 15:01 Potassium 4.2 mmol/L (3.6-5.0) 08/05/17 15:01 Chloride 97.0 mmol/L (98-107) L 08/05/17 15:01 Carbon Dioxide 19 mmol/L (22-30) L 08/05/17 15:01 Anion Gap 19 mmol/L 08/05/17 15:01 BUN 12 mg/dL (9-20) 08/05/17 15:01 Creatinine 1.3 mg/dL (0.8-1.5) 08/05/17 15:01 Estimated GFR > 60 ml/min 08/05/17 15:01 BUN/Creatinine Ratio 9 % 08/05/17 15:01 Glucose 110 mg/dL (75-100) H 08/05/17 15:01 Hemoglobin A1c 6.0 % (4-6) 07/20/17 05:22 Osmolality 285 Mosm/kg 07/26/17 03:32 Lactic Acid 0.50 mmol/L (0.7-2.0) L 07/19/17 21:20 Uric Acid 4.8 mg/dL (3.5-7.6) 07/27/17 10:40 Calcium 8.2 mg/dL (8.4-10.2) L 08/05/17 15:01 Phosphorus 3.60 mg/dL (2.5-4.5) 07/26/17 03:32 Iron 43 ug/dL (49-181) L 07/28/17 09:03 TIBC 170 mcg/dL (250-450) L 07/28/17 09:03 % Saturation 25.29 % 07/28/17 09:03 Transferrin 143 mg/dl (180-329) L 07/28/17 09:03 Ferritin 03191.0 ng/mL (13.0-400.0) H 07/28/17 09:03 Total Bilirubin 0.40 mg/dL (0.1-1.2) 07/20/17 05:22 Direct Bilirubin 0.2 mg/dL (0-0.2) 07/19/17 15:43 Indirect Bilirubin 0.5 mg/dL 07/19/17 15:43 AST 44 units/L (5-40) H 07/20/17 05:22 ALT 16 units/L (7-56) 07/20/17 05:22 Alkaline Phosphatase 51 units/L (35-129) 07/20/17 05:22 Lactate Dehydrogenase 404 units/L (91-180) H 08/03/17 10:22 Total Creatine Kinase 43 units/L (55-170) L 07/27/17 10:40 C-Reactive Protein 2.10 mg/dL (0.00-1.30) H 07/19/17 21:20 Total Protein 7.0 g/dL (6.3-8.2) 07/20/17 05:22 Albumin 2.8 g/dL (3.9-5) L 07/20/17 05:22 Albumin/Globulin Ratio 0.7 % 07/20/17 05:22 Vitamin B12 468.5 pg/mL (211-911) 07/28/17 09:03 Folate 8.07 ng/mL (7.3-26.0) 07/28/17 09:03 TSH 5.450 mlU/mL (0.270-4.200) H 07/26/17 03:32 Free T4 1.08 ng/dL (0.76-1.46) 07/28/17 09:03 Total Cortisol 12.8 mcg/dL () 07/28/17 09:03 Urine Color Yellow (Yellow) 07/20/17 04:00 Urine Turbidity Clear (Clear) 07/20/17 04:00 Urine pH 6.0 (5.0-7.0) 07/20/17 04:00 Ur Specific [place] 1.030 (1.003-1.030) 07/20/17 04:00 Urine Protein <15 mg/dl mg/dL (Negative) 07/20/17 04:00 Urine Glucose (UA) Neg mg/dL (Negative) 07/20/17 04:00 Urine Ketones Neg mg/dL (Negative) 07/20/17 04:00 Urine Blood Neg (Negative) 07/20/17 04:00 Urine Nitrite Neg (Negative) 07/20/17 04:00 Urine Bilirubin Neg (Negative) 07/20/17 04:00 Urine Urobilinogen 2.0 mg/dL (<2.0) 07/20/17 04:00 Ur Leukocyte Esterase Neg (Negative) 07/20/17 04:00 Urine WBC (Auto) < 1.0 /HPF (0.0-6.0) 07/20/17 04:00 Urine RBC (Auto) 1.0 /HPF (0.0-6.0) 07/20/17 04:00 Urine Eosinophils None seen (None Seen) 07/26/17 08:48 Urine Osmolality 605 Mosm/kg 07/26/17 08:48 Urine Creatinine 219.3 mg/dL (0.1-20.0) H 07/26/17 08:48 Urine Sodium 36 mmol/L 07/26/17 08:48 Urine Total Protein 70 mg/dL (5-11.8) H 07/26/17 08:48 Lymph Enumerat CD4/CD8 0.02 (0.86-5.00) L 07/19/17 21:20 % CD3 Cells 73 % (57-85) 07/19/17 21:20 Absolute CD3 Count 164 cells/uL (840-3060) L 07/19/17 21:20 % CD4 Cells 1 % (30-61) L 07/19/17 21:20 Absolute CD4 Count 2 cells/uL (490-1740) L 07/19/17 21:20 % CD8 Cells 66 % (12-42) H 07/19/17 21:20 Absolute CD8 Count 135 cells/uL (180-1170) L 07/19/17 21:20 % CD19 Cells 13 % (6-29) 07/19/17 21:20 Absolute CD19 Count 32 cells/uL (110-660) L 07/19/17 21:20 Hepatitis A IgM Ab Non-reactive (NonReactive) 07/19/17 21:20 Hep Bs Antigen Non-reactive (Negative) 07/19/17 21:20 Hep B Core IgM Ab Non-reactive (NonReactive) 07/19/17 21:20 Hepatitis C Antibody Non-reactive (NonReactive) 07/19/17 21:20 HIV DNA Qual (PCR) See scanned result 07/19/17 21:20 HIV-1 Antibody See scanned results 07/19/17 21:20 HIV-1 RNA PCR copies/ml 153797 copies/mL (<20) H 07/19/17 21:20 HIV-1 RNA (PCR) log 5.52 Log cps/mL (<1.30) H 07/19/17 21:20 HIV-2 Ab (Immunoblot) See scanned results 07/19/17 21:20 HIV 1&2 Antibody Rapid Reactive (Non React) 07/19/17 21:20 HIV P24 Antigen Non react (Non React) 07/19/17 21:20 Schistocytes Smear 1+ 07/27/17 10:02 TB (QFT) Gold In Tube Negative (Negative) 07/26/17 04:30 TB Test (QFT) Nil 1.69 IU/mL 07/26/17 04:30 TB Test Mitogen - Nil 1.11 IU/mL 07/26/17 04:30 TB Test Antigen - Nil 0.38 IU/mL 07/26/17 04:30
[2017-08-05] MEDS: FLOMAX PO SCH (22:37)
[2017-08-06] MEDS: BACTRIM DS PO SCH ×3 (06:40→22:24)
[2017-08-06] MEDS: MAGIC MOUTHWASH PO SCH ×3 (09:02→22:23)
[2017-08-06] MEDS: SODIUM CHLORIDE PO SCH ×3 (09:03→22:24)
[2017-08-06] MEDS: LOVENOX SUB-Q SCH (09:03)
[2017-08-06] MEDS: PROTONIX PO SCH (09:04)
--- NOTE | 2017-08-06 14:12 | Progress Note ---
Assessment and Plan Assessment and plan: Assessment and Plan Assessment and plan: Patient is a 37-year-old man originally from [place] with a history of tobacco dependency who presented with fevers, sore throat, weight loss, abdominal pain and shortness of breath * 2v CXR reported as no acute findings * CT abd/pelvis w and w/o: IMPRESSION: There are infiltrates at the right lung base. There are no pleural effusions or pneumothoraces. There are no kidney stones. There is no hydronephrosis per. There is no bowel obstruction, colitis or enteritis. The appendix is normal.. There is no ascites or free air, abscess or adenopathy.. There is a ventral hernia containing fat only. * CT chest with contrast: IMPRESSION: The heart size is normal. There is no mediastinal or hilar lymphadenopathy. The lungs are well-expanded. 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 There are infiltrates at the right lung base. There is no pulmonary nodule or mass.. There is no pleural effusion or pneumothorax.. SEPSIS PNA: Infectious Disease is following, ivf and abx, cultures with no growth. 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 on bactrim. Oral thrush candidiasis: Treat with Diflucan Neutropenia was likely related to infection: Treated infection Acute kidney injury- Possible secondary to visible nephropathy. Resolved Hyperkalemia-corrected RLL Aspiration pneumonia: iv abx, no evidence of TB Tobacco dependancy: disability counselor on stopping-15 MINS SPENT. Hyponatremia: Persist possible SIADH, Nephrology following. Severe malnutrition: consult Audit Officer, encourage po intake Urinary retention; Maybe secondary to principal disease. Continue on flomax, urology eval outpatient of symptoms continue GERD: add PPI Thrombocytopenia: Stable-Improved DVT prophylaxis: Subcutaneous Lovenox full code Plan discussed with patient. awaiting final Pathology reports.Patient is homeless which makes disposition a problem considering need to advise on pathology reports. History Interval history: Resting comfortably but c/o bilateral Knee pain. Hospitalist Physical - Constitutional Vitals: Temp Pulse Resp BP Pulse Ox 97.8 F 83 18 108/69 100 08/06/17 08:11 08/06/17 08:11 08/06/17 08:11 08/06/17 08:11 08/06/17 08:11 General appearance: Present: no acute distress, cachectic, other (oral candidiasis) - Neck Neck: Present: supple - Respiratory Respiratory effort: normal Respiratory: bilateral: CTA - Cardiovascular Heart Sounds: Present: S1 & S2 - Extremities Extremities: No edema Extremity abnormal: other (Bilateral knee tenderness. No trauma signs and no swelling. FROM) Results - Labs CBC & Chem 7: 08/05/17 15:01 08/05/17 15:01 Labs: Laboratory Last Values WBC 3.1 K/mm3 (4.5-11.0) L 08/05/17 15:01 RBC 4.37 M/mm3 (3.65-5.03) 08/05/17 15:01 Hgb 10.4 gm/dl (11.8-15.2) L 08/05/17 15:01 Hct 31.9 % (35.5-45.6) L 08/05/17 15:01 MCV 73 fl (84-94) L 08/05/17 15:01 MCH 24 pg (28-32) L 08/05/17 15:01 MCHC 33 % (32-34) 08/05/17 15:01 RDW 17.2 % (13.2-15.2) H 08/05/17 15:01 Plt Count 175 K/mm3 (140-440) 08/05/17 15:01 Eos % (Auto) Counter Helper 08/03/17 15:14 Add Manual Diff Complete 08/03/17 15:14 Total Counted 50 08/03/17 15:14 Seg Neutrophils % Counter Helper 08/03/17 15:14 Seg Neuts % (Manual) 30.0 % (40.0-70.0) L 08/03/17 15:14 Band Neutrophils % 2.0 % 08/03/17 15:14 Lymphocytes % (Manual) 14.0 % (13.4-35.0) 08/03/17 15:14 Reactive Lymphs % (Man) 0 % 08/03/17 15:14 Monocytes % (Manual) 8.0 % (0.0-7.3) H 08/03/17 15:14 Eosinophils % (Manual) 44.0 % (0.0-4.3) H 08/03/17 15:14 Basophils % (Manual) 2.0 % (0.0-1.8) H 08/03/17 15:14 Metamyelocytes % 0 % 08/03/17 15:14 Myelocytes % 0 % 08/03/17 15:14 Promyelocytes % 0 % 08/03/17 15:14 Blast Cells % 0 % 08/03/17 15:14 Nucleated RBC % Not Reportable 08/03/17 15:14 Seg Neutrophils # Man 0.7 K/mm3 (1.8-7.7) L 08/03/17 15:14 Band Neutrophils # 0.0 K/mm3 08/03/17 15:14 Abs Lymphs (Manual) 226 cells/uL (850-3900) L 07/19/17 21:20 Lymphocytes # (Manual) 0.3 K/mm3 (1.2-5.4) L 08/03/17 15:14 Abs React Lymphs (Man) 0.0 K/mm3 08/03/17 15:14 Monocytes # (Manual) 0.2 K/mm3 (0.0-0.8) 08/03/17 15:14 Eosinophils # (Manual) 1.0 K/mm3 (0.0-0.4) H 08/03/17 15:14 Basophils # (Manual) 0.0 K/mm3 (0.0-0.1) 08/03/17 15:14 Metamyelocytes # 0.0 K/mm3 08/03/17 15:14 Myelocytes # 0.0 K/mm3 08/03/17 15:14 Promyelocytes # 0.0 K/mm3 08/03/17 15:14 Blast Cells # 0.0 K/mm3 08/03/17 15:14 WBC Morphology Not Reportable 08/03/17 15:14 Hypersegmented Neuts Not Reportable 08/03/17 15:14 Hyposegmented Neuts Not Reportable 08/03/17 15:14 Hypogranular Neuts Not Reportable 08/03/17 15:14 Smudge Cells Not Reportable 08/03/17 15:14 Toxic Granulation Not Reportable 08/03/17 15:14 Toxic Vacuolation Not Reportable 08/03/17 15:14 Dohle Bodies Not Reportable 08/03/17 15:14 Pelger-Huet Anomaly Not Reportable 08/03/17 15:14 Steffen Rods Not Reportable 08/03/17 15:14 Platelet Estimate Consistent w auto 08/03/17 15:14 Clumped Platelets Not Reportable 08/03/17 15:14 Plt Clumps, EDTA Not Reportable 08/03/17 15:14 Large Platelets Not Reportable 08/03/17 15:14 Giant Platelets Not Reportable 08/03/17 15:14 Platelet Satelliting Not Reportable 08/03/17 15:14 Plt Morphology Comment Not Reportable 08/03/17 15:14 RBC Morphology Not Reportable 08/03/17 15:14 Dimorphic RBCs Not Reportable 08/03/17 15:14 Polychromasia Not Reportable 08/03/17 15:14 Hypochromasia 1+ 08/03/17 15:14 Poikilocytosis Not Reportable 08/03/17 15:14 Anisocytosis 1+ 08/03/17 15:14 Microcytosis Not Reportable 08/03/17 15:14 Macrocytosis Not Reportable 08/03/17 15:14 Spherocytes Not Reportable 08/03/17 15:14 Pappenheimer Bodies Not Reportable 08/03/17 15:14 Sickle Cells Not Reportable 08/03/17 15:14 Target Cells Not Reportable 08/03/17 15:14 Tear Drop Cells Not Reportable 08/03/17 15:14 Ovalocytes Not Reportable 08/03/17 15:14 Helmet Cells Not Reportable 08/03/17 15:14 [place] Bodies Not Reportable 08/03/17 15:14 Peterson Rings Not Reportable 08/03/17 15:14 [place] Cells Few 08/03/17 15:14 Bite Cells Not Reportable 08/03/17 15:14 Crenated Cell Not Reportable 08/03/17 15:14 Elliptocytes 2+ 08/03/17 15:14 Acanthocytes (Spur) Not Reportable 08/03/17 15:14 Rouleaux Not Reportable 08/03/17 15:14 Hemoglobin C Crystals Not Reportable 08/03/17 15:14 Schistocytes Few 08/03/17 15:14 Malaria parasites Not Reportable 08/03/17 15:14 Percent Retic 0.55 % (0.78-2.58) L 07/28/17 09:03 Ezekiel Bodies Not Reportable 08/03/17 15:14 Hem Pathologist Commnt No 08/03/17 15:14 PT 13.0 Sec. (12.2-14.9) 07/28/17 09:03 INR 0.94 (0.87-1.13) 07/28/17 09:03 APTT 32.1 Sec. (24.2-36.6) 07/28/17 09:03 Sodium 131 mmol/L (137-145) L 08/05/17 15:01 Potassium 4.2 mmol/L (3.6-5.0) 08/05/17 15:01 Chloride 97.0 mmol/L (98-107) L 08/05/17 15:01 Carbon Dioxide 19 mmol/L (22-30) L 08/05/17 15:01 Anion Gap 19 mmol/L 08/05/17 15:01 BUN 12 mg/dL (9-20) 08/05/17 15:01 Creatinine 1.3 mg/dL (0.8-1.5) 08/05/17 15:01 Estimated GFR > 60 ml/min 08/05/17 15:01 BUN/Creatinine Ratio 9 % 08/05/17 15:01 Glucose 110 mg/dL (75-100) H 08/05/17 15:01 Hemoglobin A1c 6.0 % (4-6) 07/20/17 05:22 Osmolality 285 Mosm/kg 07/26/17 03:32 Lactic Acid 0.50 mmol/L (0.7-2.0) L 07/19/17 21:20 Uric Acid 4.8 mg/dL (3.5-7.6) 07/27/17 10:40 Calcium 8.2 mg/dL (8.4-10.2) L 08/05/17 15:01 Phosphorus 3.60 mg/dL (2.5-4.5) 07/26/17 03:32 Iron 43 ug/dL (49-181) L 07/28/17 09:03 TIBC 170 mcg/dL (250-450) L 07/28/17 09:03 % Saturation 25.29 % 07/28/17 09:03 Transferrin 143 mg/dl (180-329) L 07/28/17 09:03 Ferritin 32959.0 ng/mL (13.0-400.0) H 07/28/17 09:03 Total Bilirubin 0.40 mg/dL (0.1-1.2) 07/20/17 05:22 Direct Bilirubin 0.2 mg/dL (0-0.2) 07/19/17 15:43 Indirect Bilirubin 0.5 mg/dL 07/19/17 15:43 AST 44 units/L (5-40) H 07/20/17 05:22 ALT 16 units/L (7-56) 07/20/17 05:22 Alkaline Phosphatase 51 units/L (35-129) 07/20/17 05:22 Lactate Dehydrogenase 404 units/L (91-180) H 08/03/17 10:22 Total Creatine Kinase 43 units/L (55-170) L 07/27/17 10:40 C-Reactive Protein 2.10 mg/dL (0.00-1.30) H 07/19/17 21:20 Total Protein 7.0 g/dL (6.3-8.2) 07/20/17 05:22 Albumin 2.8 g/dL (3.9-5) L 07/20/17 05:22 Albumin/Globulin Ratio 0.7 % 07/20/17 05:22 Vitamin B12 468.5 pg/mL (211-911) 07/28/17 09:03 Folate 8.07 ng/mL (7.3-26.0) 07/28/17 09:03 TSH 5.450 mlU/mL (0.270-4.200) H 07/26/17 03:32 Free T4 1.08 ng/dL (0.76-1.46) 07/28/17 09:03 Total Cortisol 12.8 mcg/dL () 07/28/17 09:03 Urine Color Yellow (Yellow) 07/20/17 04:00 Urine Turbidity Clear (Clear) 07/20/17 04:00 Urine pH 6.0 (5.0-7.0) 07/20/17 04:00 Ur Specific [place] 1.030 (1.003-1.030) 07/20/17 04:00 Urine Protein <15 mg/dl mg/dL (Negative) 07/20/17 04:00 Urine Glucose (UA) Neg mg/dL (Negative) 07/20/17 04:00 Urine Ketones Neg mg/dL (Negative) 07/20/17 04:00 Urine Blood Neg (Negative) 07/20/17 04:00 Urine Nitrite Neg (Negative) 07/20/17 04:00 Urine Bilirubin Neg (Negative) 07/20/17 04:00 Urine Urobilinogen 2.0 mg/dL (<2.0) 07/20/17 04:00 Ur Leukocyte Esterase Neg (Negative) 07/20/17 04:00 Urine WBC (Auto) < 1.0 /HPF (0.0-6.0) 07/20/17 04:00 Urine RBC (Auto) 1.0 /HPF (0.0-6.0) 07/20/17 04:00 Urine Eosinophils None seen (None Seen) 07/26/17 08:48 Urine Osmolality 605 Mosm/kg 07/26/17 08:48 Urine Creatinine 219.3 mg/dL (0.1-20.0) H 07/26/17 08:48 Urine Sodium 36 mmol/L 07/26/17 08:48 Urine Total Protein 70 mg/dL (5-11.8) H 07/26/17 08:48 Lymph Enumerat CD4/CD8 0.02 (0.86-5.00) L 07/19/17 21:20 % CD3 Cells 73 % (57-85) 07/19/17 21:20 Absolute CD3 Count 164 cells/uL (840-3060) L 07/19/17 21:20 % CD4 Cells 1 % (30-61) L 07/19/17 21:20 Absolute CD4 Count 2 cells/uL (490-1740) L 07/19/17 21:20 % CD8 Cells 66 % (12-42) H 07/19/17 21:20 Absolute CD8 Count 135 cells/uL (180-1170) L 07/19/17 21:20 % CD19 Cells 13 % (6-29) 07/19/17 21:20 Absolute CD19 Count 32 cells/uL (110-660) L 07/19/17 21:20 Hepatitis A IgM Ab Non-reactive (NonReactive) 07/19/17 21:20 Hep Bs Antigen Non-reactive (Negative) 07/19/17 21:20 Hep B Core IgM Ab Non-reactive (NonReactive) 07/19/17 21:20 Hepatitis C Antibody Non-reactive (NonReactive) 07/19/17 21:20 HIV DNA Qual (PCR) See scanned result 07/19/17 21:20 HIV-1 Antibody See scanned results 07/19/17 21:20 HIV-1 RNA PCR copies/ml 957160 copies/mL (<20) H 07/19/17 21:20 HIV-1 RNA (PCR) log 5.52 Log cps/mL (<1.30) H 07/19/17 21:20 HIV-2 Ab (Immunoblot) See scanned results 07/19/17 21:20 HIV 1&2 Antibody Rapid Reactive (Non React) 07/19/17 21:20 HIV P24 Antigen Non react (Non React) 07/19/17 21:20 Schistocytes Smear 1+ 07/27/17 10:02 TB (QFT) Gold In Tube Negative (Negative) 07/26/17 04:30 TB Test (QFT) Nil 1.69 IU/mL 07/26/17 04:30 TB Test Mitogen - Nil 1.11 IU/mL 07/26/17 04:30 TB Test Antigen - Nil 0.38 IU/mL 07/26/17 04:30
[2017-08-06] MEDS: FLOMAX PO SCH (22:24)
[2017-08-07] MEDS: BACTRIM DS PO SCH (06:30)
[2017-08-07 08:46] VITALS: BP 103/65
--- NOTE | 2017-08-07 09:22 | Discharge Summary ---
Providers - Providers Date of Admission: 07/19/17 17:29 Attending physician: COOKIE LANGSTON MD 07/19/17 16:55 Consult to Physician [CONS] Urgent Consulting Provider: MALCOM ARBOLEDA Reason For Exam: luekopenia fever thrush Place consult to:: ID Notified:: yes 07/20/17 18:46 Consult to Dietitian/Nutrition [CONS] Routine Physician Instructions: Reason For Exam: Reason for Consult: Malnutrition 07/25/17 14:00 Consult to Physician [CONS] Routine Consulting Provider: SHANI URBINA Reason For Exam: RADHA Place consult to:: DR. OLIVER Notified:: Phone number called:: [phone] Was contact made?: Yes If yes, spoke with:: DR. OLIVER Time called:: 14:27 Comment:: WONG NOTIFIED 07/26/17 16:49 Consult to Physician [CONS] Routine Consulting Provider: MANDY FUENTES Reason For Exam: severe odynophagia Place consult to:: Svitlana Notified:: yes Phone number called:: [phone] If yes, spoke with:: malia Time called:: 18:30 Comment:: Dr Avery consumer science teacher 07/27/17 14:41 Consult to Physician [CONS] Routine Consulting Provider: SMITH FRANKLIN Reason For Exam: PANCYTOPENIA, RECURRENT FEVER ?BM BIOPSY Place consult to:: DR. FRANKLIN Notified:: OFFICE Phone number called:: [phone] Was contact made?: Yes If yes, spoke with:: FRANCHESKA Time called:: 16:53 Comment:: CHRIS NOTIFIED Primary care physician: INTEGRATION SPECIALIST Hospitalization Reason for admission: sepsis Condition: Stable Hospital course: Patient is a 37-year-old man originally from [place] with a history of tobacco dependency who presented with fevers, sore throat, weight loss, abdominal pain and shortness of breath. Images studies revealed a fissures in the right lower lobe the patient was started on empiric antibiotics for the study revealed HIV presumed A IDS at this point. We'll vary significantly low CD4 count and high viral load. Infectious disease did give input the patient was started on Bactrim DS 2 tabs 3 times a day until 214 and then 1 tab daily until improved CD4 count. We've had extensive discussion with the patient about the need to follow up HIV clinic information has been provided to the patient and discharge. The patient was also ruled out for TB. He did have urinary retention which improved with Flomax. I recommended outpatient follow-up with urologist and also with primary care. He is clinically stable at this point for discharge Discussed with Pathology. results are negative for malignancy and infection, Likley all related to patients HIV/AIDS. the patientUpon discharge will do bactrim DS 2 tab po TID total 21 days until and bactrim DS 1 tap po daily until CD 4 greater than 200 -continue azithromycin 1200 mg po weekly until CD 4 is greater than 200 * 2v CXR reported as no acute findings * CT abd/pelvis w and w/o: IMPRESSION: There are infiltrates at the right lung base. There are no pleural effusions or pneumothoraces. There are no kidney stones. There is no hydronephrosis per. There is no bowel obstruction, colitis or enteritis. The appendix is normal.. There is no ascites or free air, abscess or adenopathy.. There is a ventral hernia containing fat only. * CT chest with contrast: IMPRESSION: The heart size is normal. There is no mediastinal or hilar lymphadenopathy. The lungs are well-expanded. 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 There are infiltrates at the right lung base. There is no pulmonary nodule or mass.. There is no pleural effusion or pneumothorax.. Discharge diagnosis SEPSIS Aspiration PNA HIV/AIDS Oral thrush candidiasis Neutropenia was likely related to infection Acute kidney injury- Possible secondary to visible nephropathy. Hyperkalemia RLL Aspiration pneumonia Tobacco dependancy Hyponatremia: Severe malnutrition: Urinary retention GERD: Thrombocytopenia Disposition: TO HOME OR SELFCARE Time spent for discharge: 35 mins Core Measure Documentation - Palliative Care Palliative Care/ Comfort Measures: Not Applicable - Core Measures Any of the following diagnoses?: none - VTE Discharge Requirements Deep Vein Thrombosis/Pulmonary Embolism Present on Admission: No Exam - Physical Exam Narrative exam: VITAL SIGNS: Reviewed. GENERAL: The patient appeared malnourished with muscle wasting. Vital signs as documented. HEAD: No signs of head trauma. EYES: Pupils are equal. Extraocular motions intact. EARS: Hearing grossly intact. MOUTH: Oral thrush NECK: No adenopathy, no JVD. CHEST: Chest with diminished breath sounds bilaterally. No wheezes, rales, or rhonchi. CARDIAC: Regular rate and rhythm. S1 and S2, without murmurs, gallops, or rubs. VASCULAR: No Edema. Peripheral pulses normal and equal in all extremities. ABDOMEN: Soft, without detectable tenderness. No sign of distention. No rebound or guarding, and no masses palpated. Bowel Sounds normal. MUSCULOSKELETAL: Good range of motion of all major joints. Extremities without clubbing, cyanosis or edema. NEUROLOGIC EXAM: Alert and oriented x 3. No focal sensory or strength deficits. Speech normal. Follows commands. PSYCHIATRIC: Mood normal. SKIN: Some skin deformities and discoloration. - Constitutional Vitals: Temp Pulse Resp BP Pulse Ox 98.2 F 78 14 103/65 96 08/07/17 07:36 08/06/17 22:54 08/07/17 07:36 08/07/17 07:36 08/06/17 22:54 Plan Activity: advance as tolerated, fall precautions Diet: regular Special Instructions: record daily weights Follow up with: PRIMARY MD AYSHA [Primary Care Provider] - 7 Days [facility] [Outside] - 7 Days [facility] [Outside] - 7 Days VIPUL PEÑA MD [Staff Physician] - 7 Days MALCOM ARBOLEDA MD [Staff Physician] - 7 Days Prescriptions: Tamsulosin [Flomax] 0.4 mg PO QHS #30 capsule Azithromycin [Zithromax TAB] 1,200 mg PO Th #4 tablet Sodium Chloride 2 gm PO TID #90 tablet Sulfamethoxazole/Trimethoprim [Bactrim DS TAB] 1 each PO . DIR #60 tablet traMADol [Ultram] 50 mg PO Q6HR PRN #14 tablet PRN Reason: Pain
--- NOTE | 2017-08-07 09:45 | Hem/Onc Progress Note ---
Assessment and Plan Bone marrow pathology shows no infection or malignancy. The changes seem to be secondary to severe immunosuppression. I can follow him in my office about a month to see if the labs improve with proper HIV AIDS treatment. If cytopenias persist, may need to repeat bone marrow. Subjective Date of service: 08/07/17 Interval history: pt feels fair Feels better Objective - Constitutional Vitals: Last Vital Signs Temp 98.2 F 08/07/17 07:36 Pulse 78 08/06/17 22:54 Resp 14 08/07/17 07:36 BP 103/65 08/07/17 07:36 Pulse Ox 96 08/06/17 22:54 Pain Intensity (0-10): denies any pain General appearance: mild distress Performance status: 2- selfcare, ambulatory - Neck Neck: supple - Respiratory Respiratory effort: Positive: normal Respiratory: bilateral: diminished - Cardiovascular Rhythm: regular
[2017-08-07] MEDS: SODIUM CHLORIDE PO SCH (09:51)
[2017-08-07] MEDS: LOVENOX SUB-Q SCH (09:52)
[2017-08-07] MEDS: PROTONIX PO SCH (09:54)
[2017-08-07] MEDS: MAGIC MOUTHWASH PO SCH (09:54)
--- NOTE | 2017-08-07 11:45 | Progress Note ---
Assessment and Plan Assessment: 1) Sepsis: Better. Etiology -pneumonia, ? PCP, ?disseminated MAC 2) RLL Pneumonia: CXR neg. CT chest + RLL inflitrate. ? influenza ? CAP ?TB ? opportunistic -CRP 2.1 -influenza antigen neg - AFB x 3 negative -TB QFR negative -Bone marrow pathology shows no infection or malignancy. 3) Oral candidiasis - better 4) Weight loss: from HIV / AIDS 5) Newly diagnosed HIV ? unknown CD4/VL. Cryptococcal antigen neg 6) Neutropenia/thrombocytopenia: resolving from HIV ? MAC ? malignancy ? infection? Improving 7) Hyponatremia; stable 8) Homeless 9) RADHA - better -Renal US negative 10) Advanced AIDS; CD4 =2, VL [id number] Plan: -hematology following -continue bactrim po -residential case manager eval for assisted placement -renal following -Upon discharge will do bactrim DS 2 tab po TID total 21 days until 08/09 and bactrim DS 1 tap po daily until CD 4 greater than 200 -continue azithromycin 1200 mg po weekly until CD 4 is greater than 200 we are signing off Thank you Dr Le for your consultation, will follow up with you. Katlyn Arzate NP-C for Dr. Mishel Fry MD Infectious Diseases Specialist [facility] M [phone] O [phone] Subjective Date of service: 08/07/17 Principal diagnosis: leukopenia, fever, thrush, HIV/AIDS Interval history: I feel so much better today, no fever Microbiology: Blood cultures: 07/19 Respiratory cultures: influenza negative 07/19 Cryptococcus antigen negative Urine culture: negative Current Antimicrobials: Bactrim Azithromycin 08/02 Previous Antimicrobials: Vancomycin Zosyn 07/20 levaquin 07/20 tamiflu07/19 diflucan 07/19 Ceftriaoxne 07/20 Objective - Exam Narrative Exam: General appearance: Alert in NAD, conversant Eyes: anicteric sclerae, moist conjunctivae; no lid-lag; PERRLA HENT: Atraumatic; oropharynx +marked thrush, face and lips cracked and peeling Neck: Trachea midline; supple, no thyromegaly or lymphadenopathy Lungs: diminished breath sounds CV: RRR s1 s2 Abdomen: Soft, non-tender; no masses or hepatosplenomegaly Extremities: No peripheral edema or extremity lymphadenopathy Skin: Normal temperature, dry and ashy Psych: Appropriate affect, calm and cooperative Neuro: alert and oriented x 3. Moving all extermities Lines: No CVL / PICC - Constitutional Vitals: Vital Signs Temp Pulse Resp BP Pulse Ox 98.2 F 78 14 103/65 96 08/07/17 07:36 08/06/17 22:54 08/07/17 07:36 08/07/17 07:36 08/06/17 22:54 Temperature -Last 24 Hours Temperature 98.2 F Temperature 98.1 F Temperature 97.7 F - Labs CBC & Chem 7: 08/05/17 15:01 08/05/17 15:01
[2017-08-10] MEDS ORDERED: ZITHROMAX PO SCH (12:00)
== END 2017-08-07 14:05 | disposition home or self-care (01) | DRG 974 ==
LOC: ED 12:49 → 3A 17:29
PROVIDERS: ADMIT Internal Medicine; ATTEND Internal Medicine
PROC: 3E0234Z Introduction of Serum, Toxoid and Vaccine into Muscle, Percutaneous Approach (ICD-10-PCS; 2017-07-20)
PROC: 07DR3ZX Extraction of Iliac Bone Marrow, Percutaneous Approach, Diagnostic (ICD-10-PCS; principal; 2017-07-28)
DX: B20 Human immunodeficiency virus [HIV] disease (principal); E43 Unspecified severe protein-calorie malnutrition; B37.81 Candidal esophagitis; A41.9 Sepsis, unspecified organism; J18.1 Lobar pneumonia, unspecified organism; J69.0 Pneumonitis due to inhalation of food and vomit; E87.1 Hypo-osmolality and hyponatremia; B37.0 Candidal stomatitis; Z68.1 Body mass index [BMI] 19.9 or less, adult; N17.9 Acute kidney failure, unspecified; Z82.49 Family history of ischemic heart disease and other diseases of the circulatory system; F17.200 Nicotine dependence, unspecified, uncomplicated; E11.9 Type 2 diabetes mellitus without complications; I10 Essential (primary) hypertension; R74.0 Nonspecific elevation of levels of transaminase and lactic acid dehydrogenase [LDH]; R13.10 Dysphagia, unspecified; R33.9 Retention of urine, unspecified; K21.9 Gastro-esophageal reflux disease without esophagitis; Z59.0 Homelessness; Z23 Encounter for immunization; Z71.6 Tobacco abuse counseling
CPT/HCPCS: 36415; 71046; 71260; 74178; 76770; 80048; 80053; 80074; 81001; 82024; 82140; 82164; 82533; 82550; 82570; 82607; 82728; 82747; 83036; 83550; 83615; 83930; 83935; 84100; 84156; 84295; 84300; 84439; 84443; 84550; 85007; 85025; 85027; 85045; 85097; 85610; 85730; 86140; 86403; 86689; 87040; 87086; 87400; 87535; 87536; 87806; 88161; 88184; 88185; 88230; 88291; 88305; 88311; 88313; 89050; 90732; 93005; 93010; 96361; 96374; 96375; 99406; G0364; J0610; J0696; J1170; J1450; J1650; J1956; J2250; J2405; J2543; J3010; J3370; J7030; J7050; J7060; Q9967